=== PATIENT | female | born 1970 | race Caucasian/White ===

== ENCOUNTER 2018-07-24 09:39 | Day surgery (SDC) | payer BC ==
[~2018-07-24 09:39] MED LIST: ACAI; ERGO400 PO; FISH1000 PO; MULVITA PO; OXYACE5T PO; RXOXYACE PO; TOCO1000 PO; VITB100 PO; [UNRECOGNIZED DRUG - OTHER]
[2018-07-24 13:53] LABS: Performing Lab SYMBIODX; Test Name FLOW CYTOMETRY
[2018-08-02 14:27] LABS: Result SEE PATHOTH RESULTS
== END 2018-07-24 22:42 | disposition home or self-care (01) ==
LOC: CT 09:39 → US 09:39 → CT 10:00 → US 22:42
PROVIDERS: Pathology Dermatopathology
DX: R59.0 Localized enlarged lymph nodes (principal); D48.1 Neoplasm of uncertain behavior of connective and other soft tissue; M54.2 Cervicalgia
CPT/HCPCS: 38505; 76942; 87071; 87075; 87076; 87205; 88173; 88184; 88185; 88305; 88312

== ENCOUNTER → 2018-07-26 | Outpatient (CLI) | payer BC | LOC: LAB 17:56 → LAB SHORT 17:56 | DX: L08.9 Local infection of the skin and subcutaneous tissue, unspecified (principal); R59.0 Localized enlarged lymph nodes | CPT/HCPCS: 87070; 87205 ==

== ENCOUNTER 2020-12-16 16:34 | Emergency (ER) | payer BC ==
[~2020-12-16] VITALS: Ht 162.6 cm; Wt 72.6 kg
[2020-12-16 17:17] LABS: BASOPHILS ABSOLUTE AUTO 0.03 K/mm3 (0.00-0.23); BASOPHILS PERCENT AUTO 0 % (0-2); EOSINOPHILS ABSOLUTE AUTO 0.16 K/mm3 (0.00-0.68); EOSINOPHILS PERCENT AUTO 2 % (0-6); Hematocrit 43.2 % (33.0-51.0); Hemoglobin 14.4 g/dL (11.5-16.0); IMMATURE GRAN ABSOLUTE AUTO 0.05 K/mm3 (0.00-0.10); IMMATURE GRAN PERCENT AUTO 1 % (0-1); LYMPHOCYTES ABSOLUTE AUTO 1.74 K/mm3 (0.84-5.20); LYMPHOCYTES PERCENT AUTO 24 % (21-46); MONOCYTES PERCENT AUTO 11 % (4-13); Mean Corpuscular HGB 31.4 pg (26.0-34.0); Mean Corpuscular HGB Conc 33.3 g/dL (31.5-36.5); Mean Corpuscular Volume 94 fL (80-100); Mean Platelet Volume 10.4 fL (9.1-12.4); NEUTROPHILS PERCENT AUTO 61 % (41-73); Platelet Count 228 K/mm3 (150-400); RDW Coefficient Variation 12.7 % (11.7-14.2); RDW Standard Deviation 43.8 fL (35.1-46.3); Red Blood Cell Count 4.58 M/mm3 (3.80-5.20); White Blood Cell Count 7.18 K/mm3 (4.00-11.30)
[2020-12-16 17:37] LABS: Alanine Aminotransfer (ALT/SGP 33 U/L (12-78); Albumin, Blood 3.6 g/dL (3.4-5.0); Albumin/Globulin Ratio 0.7 (0.8-1.8); Alk Phos 113 U/L (50-136); Anion Gap 4 mmol/L (6-16); Aspartate Aminotrans (AST/SGOT 28 U/L (12-37); Bilirubin, Total 0.3 mg/dL (0.1-1.0); Blood Urea Nitrogen 12 mg/dL (8-24); Bun/Creatinine Ratio 16.8 (12.0-20.0); CO2, Blood 27 mmol/L (21-32); Calcium, Blood 9.2 mg/dL (8.5-10.1); Chloride, Blood 105 mmol/L (98-108); Creatinine, Blood 0.71 mg/dL (0.40-1.00); Globulin, Blood 5.1 g/dL (2.2-4.0); Glomerular Filtration Rate >60 (60-); Glucose, Blood 92 mg/dL (70-99); Sodium, Blood 136 mmol/L (136-145); Total Protein, Blood 8.7 g/dL (6.4-8.2); Troponin I <0.015 ng/mL (0.000-0.040)
== END 2020-12-16 19:09 | disposition home or self-care (01) ==
LOC: ER 16:34
PROVIDERS: Physician Assistant
DX: R07.89 Other chest pain (principal)
CPT/HCPCS: 36415; 71046; 80053; 84484; 85025; 93005; 93010; 99283-25

== ENCOUNTER 2021-01-15 15:25 | Inpatient (IN) | payer BC ==
[~2021-01-15] VITALS: Ht 162.6 cm; Wt 76.7 kg
[2021-01-15 16:26] LABS: Hematocrit 40.9 % (33.0-51.0); Mean Corpuscular HGB 31.6 pg (26.0-34.0); Mean Corpuscular HGB Conc 34.2 g/dL (31.5-36.5); Mean Corpuscular Volume 92 fL (80-100); RDW Coefficient Variation 13.1 % (11.7-14.2); RDW Standard Deviation 44.5 fL (35.1-46.3); Red Blood Cell Count 4.43 M/mm3 (3.80-5.20); White Blood Cell Count 23.91 K/mm3 (4.00-11.30)
[2021-01-15] MEDS ORDERED: ACET500 PO (16:33)
[2021-01-15] MEDS ORDERED: OMEP20ER PO (16:33)
[2021-01-15] MEDS ORDERED: IBUP800 PO (16:34)
[2021-01-15 16:39] LABS: Alanine Aminotransfer (ALT/SGP 32 U/L (12-78); Albumin, Blood 1.9 g/dL (3.4-5.0); Albumin/Globulin Ratio 0.4 (0.8-1.8); Alk Phos 194 U/L (50-136); Anion Gap 6 mmol/L (6-16); Aspartate Aminotrans (AST/SGOT 61 U/L (12-37); Bilirubin, Total 0.9 mg/dL (0.1-1.0); Blood Urea Nitrogen 11 mg/dL (8-24); Bun/Creatinine Ratio 14.8 (12.0-20.0); CO2, Blood 28 mmol/L (21-32); Calcium, Blood 8.6 mg/dL (8.5-10.1); Chloride, Blood 101 mmol/L (98-108); Creatinine, Blood 0.74 mg/dL (0.40-1.00); Glomerular Filtration Rate >60 (60-); Glucose, Blood 96 mg/dL (70-99); Potassium, Blood 4.1 mmol/L (3.5-5.5); Sodium, Blood 135 mmol/L (136-145); Total Protein, Blood 6.9 g/dL (6.4-8.2)
[2021-01-15 16:43] LABS: Mean Platelet Volume 11.1 fL (9.1-12.4); Platelet Count 300 K/mm3 (150-400)
[2021-01-15 16:47] LABS: BAND PERCENT MAN 53 % (0-8); BASOPHILS PERCENT MAN 0 % (0-2); EOSINOPHILS PERCENT MAN 0 % (0-6); METAMYELOCYTE ABSOLUTE MAN 0.95 K/mm3 (0.00-0.00); METAMYELOCYTE PERCENT MAN 4 % (0-0); MONOCYTES ABSOLUTE MAN 0.23 K/mm3 (0.16-1.47); MONOCYTES PERCENT MAN 1 % (4-13); NEUTROPHILS ABSOLUTE MAN 22.71 K/mm3 (1.96-9.15); SEG NEUTROPHILS PERCENT MAN 42 % (41-73); TOTAL CELLS COUNTED 100
[2021-01-16 05:17] LABS: Hematocrit 38.9 % (33.0-51.0); Hemoglobin 13.2 g/dL (11.5-16.0); Mean Corpuscular HGB 31.5 pg (26.0-34.0); Mean Corpuscular HGB Conc 33.9 g/dL (31.5-36.5); Mean Corpuscular Volume 93 fL (80-100); Mean Platelet Volume 10.6 fL (9.1-12.4); Platelet Count 235 K/mm3 (150-400); RDW Coefficient Variation 13.1 % (11.7-14.2); RDW Standard Deviation 44.8 fL (35.1-46.3); Red Blood Cell Count 4.19 M/mm3 (3.80-5.20); White Blood Cell Count 23.34 K/mm3 (4.00-11.30)
[2021-01-16 05:35] LABS: BAND PERCENT MAN 27 % (0-8); BASOPHILS PERCENT MAN 0 % (0-2); EOSINOPHILS PERCENT MAN 0 % (0-6); LYMPHOCYTES PERCENT MAN 3 % (21-46); MONOCYTES ABSOLUTE MAN 0.46 K/mm3 (0.16-1.47); MONOCYTES PERCENT MAN 2 % (4-13); NEUTROPHILS ABSOLUTE MAN 22.17 K/mm3 (1.96-9.15); SEG NEUTROPHILS PERCENT MAN 68 % (41-73); TOTAL CELLS COUNTED 100
[2021-01-16 05:38] LABS: Anion Gap 6 mmol/L (6-16); Blood Urea Nitrogen 11 mg/dL (8-24); Bun/Creatinine Ratio 16.2 (12.0-20.0); CO2, Blood 27 mmol/L (21-32); Calcium, Blood 8.6 mg/dL (8.5-10.1); Chloride, Blood 108 mmol/L (98-108); Creatinine, Blood 0.68 mg/dL (0.40-1.00); Glomerular Filtration Rate >60 (60-); Glucose, Blood 119 mg/dL (70-99); Potassium, Blood 3.3 mmol/L (3.5-5.5); Sodium, Blood 141 mmol/L (136-145)
--- NOTE | 2021-01-16 06:38 | NUR ---
SHIFT SUMMARY- PT. NEW ADMIT FOR ED. A&O, INDEP IN ROOM. ON 3L NC SATS AT 92%. PT. HAVING SOB W/EXERTION WITH OCCASIONAL COUGH. ALSO C/O IRENE THIS AM, MEDICATED PER EMAR. RESTED QUIETLY T/O THE NIGHT, NO APPARENT DISTRESS NOTED. CALL LIGHT WITHIN REACH AND SIDE RAILS UPX2. WILL CONT TO MONITOR.
--- NOTE | 2021-01-16 10:47 | NUR ---
Ibuprofen 400mg Patient c/o persistent IRENE rating 05/28. Received V.O. from Dr. Fernandez to give additional 400mg Ibuprofen PO now. EMAR updated.
[2021-01-16 17:28] LABS: Adenovirus Not Detected (NOT DETECT); Bordetella pertussis Not Detected (NOT DETECT); Chlamydophila pneumoniae Not Detected (NOT DETECT); Coronavirus 229E Not Detected (NOT DETECT); Coronavirus HKU1 Not Detected (NOT DETECT); Coronavirus NL63 Not Detected (NOT DETECT); Coronavirus OC43 Not Detected (NOT DETECT); Human Metapneumovirus Not Detected (NOT DETECT); Human Rhinovirus/Enterovirus Not Detected (NOT DETECT); Influenza A/2009-H1 Not Detected (NOT DETECT); Influenza A/H1 Not Detected (NOT DETECT); Influenza A/H3 Not Detected (NOT DETECT); Influenza B Not Detected (NOT DETECT); Mycoplasma pneumoniae Not Detected (NOT DETECT); Parainfluenza Virus 1 Not Detected (NOT DETECT); Parainfluenza Virus 2 Not Detected (NOT DETECT); Parainfluenza Virus 3 Not Detected (NOT DETECT); Parainfluenza Virus 4 Not Detected (NOT DETECT); Respiratory Syncytial Virus Not Detected (NOT DETECT); SARS-Cov-2 (COVID-19), BioFire Not Detected (NOT DETECT)
--- NOTE | 2021-01-16 18:46 | NUR ---
SHIFT SUMMARY NOTE: PT A/O X 3. IND IN ROOM. PT O2 SATS DECREASED TO 89% ON 3LPM. INCREASED O2 TO 4 LPM AND CONTINUED TO STAY BELOW 89%. INCREASED TO 5 LPM AND O2 SATS WERE 94%. PT REPORTED MIGRAINE IRENE TODAY WITH VISUAL EFFECTS. CONTROLLED WITH TYLENOL AND ADVIL 800 MG. NO OTHER ACUTE CONCERNS THIS SHIFT.
[2021-01-17 05:06] LABS: Hematocrit 38.7 % (33.0-51.0); Hemoglobin 13.3 g/dL (11.5-16.0); Mean Corpuscular HGB 31.9 pg (26.0-34.0); Mean Corpuscular HGB Conc 34.4 g/dL (31.5-36.5); Mean Corpuscular Volume 93 fL (80-100); Mean Platelet Volume 10.3 fL (9.1-12.4); Platelet Count 228 K/mm3 (150-400); RDW Coefficient Variation 13.2 % (11.7-14.2); Red Blood Cell Count 4.17 M/mm3 (3.80-5.20); White Blood Cell Count 32.16 K/mm3 (4.00-11.30)
[2021-01-17 05:34] LABS: BAND PERCENT MAN 9 % (0-8); BASOPHILS PERCENT MAN 0 % (0-2); EOSINOPHILS PERCENT MAN 0 % (0-6); LYMPHOCYTES ABSOLUTE MAN 0.64 K/mm3 (0.84-5.20); LYMPHOCYTES PERCENT MAN 2 % (21-46); MONOCYTES ABSOLUTE MAN 0.64 K/mm3 (0.16-1.47); MONOCYTES PERCENT MAN 2 % (4-13); NEUTROPHILS ABSOLUTE MAN 30.87 K/mm3 (1.96-9.15); SEG NEUTROPHILS PERCENT MAN 87 % (41-73); TOTAL CELLS COUNTED 100
[2021-01-17 05:41] LABS: Anion Gap 6 mmol/L (6-16); Blood Urea Nitrogen 12 mg/dL (8-24); Bun/Creatinine Ratio 18.6 (12.0-20.0); CO2, Blood 28 mmol/L (21-32); Calcium, Blood 9.1 mg/dL (8.5-10.1); Chloride, Blood 108 mmol/L (98-108); Creatinine, Blood 0.65 mg/dL (0.40-1.00); Glomerular Filtration Rate >60 (60-); Glucose, Blood 99 mg/dL (70-99); Potassium, Blood 3.2 mmol/L (3.5-5.5); Sodium, Blood 142 mmol/L (136-145)
--- NOTE | 2021-01-17 06:04 | NUR ---
SHIFT SUMMARY- PT. C/O HEADACHE DURING THE NIGHT. MEDICATED 2X, WITH SOME IMPROVEMENT. ON 5L NC, SATS AT 90-92%. OCCASIONAL DRY NONPRODUCTIVE COUGH. RESTED ON/OFF DURING THE NIGHT, NO APPARENT DISTRESS NOTED. CALL LIGHT WITHIN REACH AND SIDE RAILS UPX2. WILL CONT TO MONITOR.
--- NOTE | 2021-01-17 08:49 | NUR ---
BD protocol and guifenesen Patient tachypneic. Currently on 5L O2 via NC. Patient reports she is a "mouth breather" but refuses to place NC prongs via mouth. Oxygen sats 86-89%. O2 increased to 6L, communicated with Itzel REZA requesting for high flow nasal cannula. Patient also having audible wheezes. Discussed with Dr. Fernandez, T.O. received for BD protocol and Guifenesen 600mg BID. EMAR updated.
--- NOTE | 2021-01-17 10:12 | NUR ---
Transfer Summary Patient transferring to room ICU 01, report given to receiving RN Tamiko. Alejandro/[id number], independent. Escorted via w/c by this RN. Personal belongings sent with patient. Breathing unlabored after neb tx and 13L HF NC placed, respiratory distress improved. Family notified by Salena IBRAHIM RE transfer to ICU.
--- NOTE | 2021-01-17 10:43 | NUR ---
RN NOTE: THIS AM PT BECAME DYSPNEIC AND HYPERVENTILATING ON 5 LPM WITH O2 SATS AT 79%. WAS ABLE TO DEEP BREATH THROUGH NOSE AND O2 SATS WOULD RISE TO LOW 90'S BUT PT UNABLE TO MAINTAIN O2 SATS. SHE HAD HARSH NON PRODUCTIVE COUGH. PT ALSO DEVELOPED A 103.7 FEVER. PT REPORTED A MIGRAINE IRENE AND FELT IF HER IRENE WAS IMPROVED SHE WOULD BE ABLE TO BREATH BETTER. AM MEDICATIONS GIVEN PER AUG. ADVIL 800 MG GIVEN FOR IRENE AND TYLENOL GIVEN FOR FEVER AND CHILLS. MD ORDERED BD PROTOCOL AND GUAFENISEN AND CAME TO EVALUATE PT. RT PROVIDED TREATMENT AND PLACED PT ON OXIMIZER AND 13 LPM TO BRING O2 SATS UP TO 91%. ORDERED TX TO PCU STATUS. NO BEDS AVALIABLE SO PT WENT TO ICU1. FAMILY NOTIFIED OF TX.
--- NOTE | 2021-01-17 12:44 | NUR ---
TRANSFER DOWN TO ICU AT 1050. PCU STATUS. PT CAME VIA WHEELCHAIR. ABLE TO STAND AND TRANSFER TO BED. ALERT AND ORIENTED X4. NEURO WNL. CAME DOWN ON HIGH FLOW AT 13L, TRANSITIONED TO OXYMIZER AT 13L SATING AT 91-92%. TELE SHOWING SINUS TACH WITH HR 100-110'S. DENIES CHEST PAIN/PRESSURE. BOWEL TONES PRESENT. COMPLAINS OF HEADACHE, MEDICATED THIS AM. WILL CONTINUE TO MONITOR. COLD WASH CLOTH PROVIDED. UP TO BATHROOM WITH SBA. DESATS TO 87% BUT ABLE TO RECOVER IN 3 MIN. ZOSYN INFUSING AT THIS TIME. CALL LIGHT IN REACH. VITAL SIGNS STABLE. BREATHING TREATMENTS PER RT. WILL CONTINUE TO MONITOR.
[2021-01-17 12:56] LABS: PCO2 Arterial 35.2 mmHg (35-45); PO2 Arterial 69.3 mmHg (80-100); pH Blood Arterial 7.44 (7.35-7.45)
--- NOTE | 2021-01-17 18:02 | NUR ---
SHIFT SUMMARY: NO ACUTE CHANGES. VITALS REMAIN STABLE. REMAINS ON 13L OXYMIZER SATING LOW 90'S. DR. CARREON IN TO SEE PATIENT. IN ROOM AT TIME. CONTINUE WITH CURRENT TREATMENT PLAN. NO NEW ORDERS. LABS PENDING. MIGRAINE RESOLVED. CALL LIGHT IN REACH. WILL CONTINUE TO MONITOR.
[2021-01-18 03:29] LABS: Hematocrit 35.4 % (33.0-51.0); Hemoglobin 11.9 g/dL (11.5-16.0); Mean Corpuscular HGB Conc 33.6 g/dL (31.5-36.5); Mean Corpuscular Volume 92 fL (80-100); Mean Platelet Volume 10.7 fL (9.1-12.4); Platelet Count 195 K/mm3 (150-400); RDW Coefficient Variation 13.6 % (11.7-14.2); RDW Standard Deviation 46.5 fL (35.1-46.3); Red Blood Cell Count 3.84 M/mm3 (3.80-5.20)
[2021-01-18 03:33] LABS: Base Excess Venous 5.4 mmol/L; Bicarbonate Venous 28.7 mmol/L (24.0-30.0); PCO2 Venous 43.4 mmHg (38-42); PO2 Venous 138 mmHg (38-42); pH Blood Venous 7.44 (7.34-7.37)
[2021-01-18 03:46] LABS: Anion Gap 5 mmol/L (6-16); Blood Urea Nitrogen 12 mg/dL (8-24); Bun/Creatinine Ratio 20.7 (12.0-20.0); CO2, Blood 29 mmol/L (21-32); Calcium, Blood 8.9 mg/dL (8.5-10.1); Chloride, Blood 108 mmol/L (98-108); Creatinine, Blood 0.58 mg/dL (0.40-1.00); Glomerular Filtration Rate >60 (60-); Glucose, Blood 114 mg/dL (70-99); Magnesium, Blood 2.4 mg/dL (1.6-2.4); Phosphorus, Blood 3.3 mg/dL (2.5-4.9); Potassium, Blood 3.1 mmol/L (3.5-5.5); Sodium, Blood 142 mmol/L (136-145)
[2021-01-18 03:52] LABS: BAND PERCENT MAN 9 % (0-8); BASOPHILS PERCENT MAN 0 % (0-2); EOSINOPHILS PERCENT MAN 0 % (0-6); LYMPHOCYTES PERCENT MAN 3 % (21-46); MONOCYTES ABSOLUTE MAN 1.17 K/mm3 (0.16-1.47); MONOCYTES PERCENT MAN 5 % (4-13); NEUTROPHILS ABSOLUTE MAN 21.52 K/mm3 (1.96-9.15); SEG NEUTROPHILS PERCENT MAN 83 % (41-73); TOTAL CELLS COUNTED 100
--- NOTE | 2021-01-18 05:46 | NUR ---
shift summary pt rested some through night. alert and oriented, able to make needs known. cooperative with plan of care. sats >90% on 13-15l oxymizer. tele nsr. voiding indpeendently to bathroom, does tend to desat with ambulation. has frequent coughing fits. i.s. at bedside. c/o severe headache, see emar. no other pain though. vss. call light within reach, bed in lowest position. will continue to [facility].
[2021-01-18 11:35] LABS: Source, Urine Clean Catch
[2021-01-18 11:41] LABS: Appearance, Urine Clear (Clear); Bilirubin, Urine Neg (Neg); Blood, Urine Neg (Neg); Color, Urine Yellow (P-Yellow); Glucose Qualitative, Urine Neg (Neg); Ketones, Urine Neg (Neg); Leukocyte Esterase, Urine Neg (Neg); Nitrite, Urine Neg (Neg); Protein, Urine Neg (Neg); Urobilinogen, Urine NORM (Normal)
--- NOTE | 2021-01-18 14:30 | NUR ---
Report given to PCU 13 Nurse Pt to PCU 13 via bed. Pt reamins on 13 L via Oxymizer. A/O X 4, able to ambulate self in room without assitance. VSS. NSR. Report given to PCU nurse. All questions answered.
--- NOTE | 2021-01-18 16:00 | NUR ---
REPORT RECEIVED FROM YSABEL RN, PT TRANSFERRED FROM ICU 1 TO PCU 13
[2021-01-19 04:19] LABS: BASOPHILS ABSOLUTE AUTO 0.07 K/mm3 (0.00-0.23); BASOPHILS PERCENT AUTO 0 % (0-2); EOSINOPHILS PERCENT AUTO 0 % (0-6); Hematocrit 34.6 % (33.0-51.0); Hemoglobin 11.8 g/dL (11.5-16.0); IMMATURE GRAN ABSOLUTE AUTO 0.56 K/mm3 (0.00-0.10); IMMATURE GRAN PERCENT AUTO 3 % (0-1); LYMPHOCYTES ABSOLUTE AUTO 1.02 K/mm3 (0.84-5.20); LYMPHOCYTES PERCENT AUTO 5 % (21-46); MONOCYTES ABSOLUTE AUTO 0.85 K/mm3 (0.16-1.47); MONOCYTES PERCENT AUTO 4 % (4-13); Mean Corpuscular HGB 31.6 pg (26.0-34.0); Mean Corpuscular HGB Conc 34.1 g/dL (31.5-36.5); Mean Corpuscular Volume 93 fL (80-100); Mean Platelet Volume 10.8 fL (9.1-12.4); NEUTROPHILS ABSOLUTE AUTO 18.23 K/mm3 (1.96-9.15); NEUTROPHILS PERCENT AUTO 88 % (41-73); Platelet Count 211 K/mm3 (150-400); RDW Coefficient Variation 13.8 % (11.7-14.2); RDW Standard Deviation 47.2 fL (35.1-46.3); Red Blood Cell Count 3.74 M/mm3 (3.80-5.20); White Blood Cell Count 20.73 K/mm3 (4.00-11.30)
[2021-01-19 04:38] LABS: Anion Gap 5 mmol/L (6-16); Blood Urea Nitrogen 14 mg/dL (8-24); Bun/Creatinine Ratio 22.7 (12.0-20.0); CO2, Blood 29 mmol/L (21-32); Calcium, Blood 8.9 mg/dL (8.5-10.1); Chloride, Blood 107 mmol/L (98-108); Creatinine, Blood 0.62 mg/dL (0.40-1.00); Glomerular Filtration Rate >60 (60-); Glucose, Blood 133 mg/dL (70-99); Potassium, Blood 3.5 mmol/L (3.5-5.5); Sodium, Blood 141 mmol/L (136-145)
--- NOTE | 2021-01-19 05:53 | NUR ---
shift summary pt rested well through the night. alert and oriented, able to make needs known. cooperative with plan of care. sats >90%, started the night at 13L oxymizer, but was able to wean down to 10L on the oxymizer. tele nsr. voiding independently to bathroom. 1 bm. pain x1 for migraine. cough medicine prn x1. call light within reach, bed in lowest position. iwll continue to monitor.
[2021-01-19 06:09] LABS: HIV SCREEN 4TH GENERATION WRFX Non Reactive (Non Reactive)
[2021-01-19 13:09] LABS: ANA DIRECT Negative (Negative); ANTI-DNA (DS) AB QN 5 IU/mL (0-9); RNP ANTIBODIES 0.3 AI (0.0-0.9); SJOGREN'S ANTI-SS-A <0.2 AI (0.0-0.9); SJOGREN'S ANTI-SS-B <0.2 AI (0.0-0.9); SMITH ANTIBODIES <0.2 AI (0.0-0.9)
[2021-01-19 14:09] LABS: ANTISCLERODERMA-70 ANTIBODIES <0.2 AI (0.0-0.9); SJOGREN'S ANTI-SS-A <0.2 AI (0.0-0.9); SJOGREN'S ANTI-SS-B <0.2 AI (0.0-0.9)
--- NOTE | 2021-01-19 19:20 | NUR ---
LOPERAMIDE ORDERED BY DR. QUINTANA AT PT'S REQUEST AND ADMINISTERED 2X PER AUG, GUAIFENESIN SYRUP, ACETAMINOPHEN, AND IBUPROFEN ALSO ADMINISTERED 2X PER AUG, FIORICET ADMINISTERED PER AUG FOR PT'S REPORTS OF MIGRAINE, PT REQUESTED THAT [facility] BE SENT WITH EACH MEAL (ORDER ENTERED), DR. QUINTANA WAS CALLED ABOUT PT'S REPORT OF SORE THROAT AT 1423, CEPACOL ORDER PROVIDED, DR. QUINTANA WAS CALLED ABOUT PT'S REPORT OF COLD SORE AT 1820, ORDER FOR ACYCLOVIR PROVIDED, ODALIS GRIFFITH INDEPENDENTLY, PT'S AT BEDSIDE DURING VISITING HOURS, PT DENIES ADDITIONAL CONCERNS AT THIS TIME
[2021-01-20 04:49] LABS: Anion Gap 5 mmol/L (6-16); Blood Urea Nitrogen 10 mg/dL (8-24); Bun/Creatinine Ratio 17.3 (12.0-20.0); CO2, Blood 31 mmol/L (21-32); Calcium, Blood 8.6 mg/dL (8.5-10.1); Chloride, Blood 105 mmol/L (98-108); Creatinine, Blood 0.58 mg/dL (0.40-1.00); Glomerular Filtration Rate >60 (60-); Glucose, Blood 114 mg/dL (70-99); Potassium, Blood 3.6 mmol/L (3.5-5.5); Sodium, Blood 141 mmol/L (136-145)
--- NOTE | 2021-01-20 06:32 | NUR ---
shift summary pt rested most of night. alert and oriented, able to make needs known. [facility] care. sats >90% on 7LNC. coughing often, sputum collected - came back negative. see emar for cough meds. tele nsr. independent in the room. voiding, bm. pain in abd from coughing so often, see emar. vss. call light within reach, bed in lowest position. will continue to monitor.
--- NOTE | 2021-01-20 18:21 | NUR ---
SHIFT SUMMARY: PT CONTINUES A&OX4, RESP EVEN AND UNLABORED AT REST, DYSPNEA W/EXERTION OR COUGHING, MAINTAINING O2 SATS >90% ON O2 AT 4L/MIN, SR ON MONITOR. PT CONTINUES INDEPENDENT IN ROOM, USES CALL LIGHT APPROPRIATELY TO MAKE NEEDS KNOWN. PT MEDICATED W/PRN MEDS FOR LOOSE STOOL, COUGH, AND HEADACHE. AT THIS TIME, PT RESTING QUIETLY IN HER ROOM. WILL CONTINUE TO MONITOR AND TREAT ACCORDINGLY UNTIL CHANGE OF SHIFT.
[2021-01-21 04:15] LABS: Hematocrit 35.3 % (33.0-51.0); Hemoglobin 11.8 g/dL (11.5-16.0); Mean Corpuscular HGB Conc 33.4 g/dL (31.5-36.5); Mean Corpuscular Volume 93 fL (80-100); Mean Platelet Volume 10.9 fL (9.1-12.4); Platelet Count 215 K/mm3 (150-400); RDW Coefficient Variation 13.6 % (11.7-14.2); RDW Standard Deviation 46.9 fL (35.1-46.3); Red Blood Cell Count 3.81 M/mm3 (3.80-5.20); White Blood Cell Count 14.65 K/mm3 (4.00-11.30)
[2021-01-21 04:40] LABS: Anion Gap 5 mmol/L (6-16); Blood Urea Nitrogen 9 mg/dL (8-24); Bun/Creatinine Ratio 15.2 (12.0-20.0); CO2, Blood 32 mmol/L (21-32); Calcium, Blood 8.8 mg/dL (8.5-10.1); Chloride, Blood 103 mmol/L (98-108); Creatinine, Blood 0.59 mg/dL (0.40-1.00); Glomerular Filtration Rate >60 (60-); Glucose, Blood 132 mg/dL (70-99); Potassium, Blood 3.3 mmol/L (3.5-5.5); Sodium, Blood 140 mmol/L (136-145)
--- NOTE | 2021-01-21 06:21 | NUR ---
ASSUMED CARE OF PATIENT AT APPROXIMATELY 1905 FROM SYDNEE Bates RN. PATIENT ALERT AND ORIENTED X4; INDEPENDENT IN ROOM. PATIENT REPORTS PAIN IN HEAD, CHRONIC FROM MIGRAINES AND IN ABDOMEN FROM COUGHING; MEDICATED FOR COUGH AND PAIN. PATIENT DENIES NUMBNESS, TINGLING, DIZZINESS OR NAUSEA. PIV S/L. NSR ON TELE; OXYGEN SATURATION ABOVE 90% ON 4LPM VIA NC. PATIENT SLEPT ABOUT THREE HOURS.
[2021-01-21 10:11] LABS: ANA DIRECT Negative (Negative); ANTIMYELOPEROXIDASE (MPO) ABS <9.0 U/mL (0.0-9.0); ANTIPROTEINASE 3 (PR-3) ABS 4.5 U/mL (0.0-3.5); ATYPICAL PANCA <1:20 titer (Neg:<1:20); CYTOPLASMIC (C-ANCA) <1:20 titer (Neg:<1:20); PERINUCLEAR (P-ANCA) <1:20 titer (Neg:<1:20)
--- NOTE | 2021-01-21 19:55 | NUR ---
PT GIVEN ANALGESICS SEVERAL TIMES PER AUG, PT GIVEN MASSAGING PILLOW SUPPORTS BY ANATOLY CHOUDHURY RN AND REPORTED SIGNIFICANT RELIEF FROM SUCH, VSS, PT O2 TITRATED DOWN TO 1LNC, PT RECEIVED POTASSIUM SUPPLEMENT AND CAFFEINATED DRINKS, PT RECEIVED LOPERAMIDE PER AUG, PT NOW MED NO TELE, PT DENIES ADDITIONAL CONCERNS AT THIS TIME
--- NOTE | 2021-01-22 05:41 | NUR ---
ASSUMED CARE OF PATIENT AT APPROXIMATELY 1910 FROM LELO Jiang RN. PATIENT ALERT AND ORIENTED X4; INDEPENDENT IN ROOM. PATIENT REPORTS PAIN IN HEAD, CHRONIC FROM MIGRAINES AND IN ABDOMEN FROM COUGHING; MEDICATED FOR COUGH AND PAIN. PATIENT REQUESTED "A MUSCLE RELAXER OR VICODIN"; DR. TOWNSEND CALLED; ORDERS RECIEVED FOR ONE TIME DOSE MUSCLE RELAXER. PATIENT DENIES NUMBNESS, TINGLING, DIZZINESS OR NAUSEA. PIV S/L. MEDICAL NO TELE STATUS; OXYGEN SATURATION ABOVE 90% ON 1LPM VIA NC. PATIENT SLEPT ABOUT THREE HOURS.
--- NOTE | 2021-01-22 06:27 | NUR ---
PATIENT SLEPT FOR ABOUT SIX HOURS LAST NIGHT. NO ACUTE CHANGES.
--- NOTE | 2021-01-22 06:49 | NUR ---
PATIENT CALLS STAFF TO ROOM TO REPORT PAIN IN HER BACK; THAT SHE HAS HAD BEFORE AND GOES TO URGENT CARE, WALKS IN AND STATES "I NEED A SHOT"; REPORTS SHE GETS TORADOL INJECTION, VICODIN AND MUSCLE RELAXER BUT UNABLE TO STATE DOSE.
--- NOTE | 2021-01-22 14:11 | NUR ---
PT TO ROOM 326. REPORT GIVEN TO JANIE HORNE RN.
--- NOTE | 2021-01-22 16:52 | NUR ---
SHIFT SUMMARY PT TRANSFERRED FROM PCU TO MED FLOOR @ APPROX 1400 VIA WHEELCHAIR. PT ABLE TO AMBULATE TO BED AND IS INDEPENDENT IN ROOM. REMAINS ON 1 L/MIN NC SATING AT 91%, GOAL IS TO TITRATE PT OFF O2. VSS, COOPERATIVE c CARE. REPORTS PAIN IN HER BACK, TREATED PER EMAR AND PROVIDED c KPAD. PT IS CURRENTLY RESTING IN BED VISITING c . CALL LIGHT IS WITHIN REACH, CALLS APPROPRIATELY.
--- NOTE | 2021-01-23 04:30 | NUR ---
SHIFT SUMMARY ADMITTED FOR FEVER/SOB. FULL CODE. SHE HAS PNEUMONIA/SEPSIS. IV ANTIBIOTICS DC'D. SHE DESATURATED THIS SHIFT TO THE MID TO HIGH 80%'S. I DID TITRATE HER O2 UP TEMPORARILY, IT IS NOW ON 3 LPM. SHE HAD A SPELL OF COUGHING PREVIOUS TO THAT, PRN COUGH MEDS GIVEN. RESPIRATORY TX'S ARE SCHEDULED. SHE HAS A HX OF MUSCLE SPASMS AND CHRONIC DIARRHEA. SHE IS REFUSING ALL BOWEL CARE. IV STEROIDS ARE SCHEDULED. SHE IS DESPERATE TO DC HOME. CONTINUOUS PULSE OX IS IN PLACE.
[2021-01-23 06:17] LABS: Anion Gap 4 mmol/L (6-16); Blood Urea Nitrogen 12 mg/dL (8-24); Bun/Creatinine Ratio 20.8 (12.0-20.0); CO2, Blood 31 mmol/L (21-32); Calcium, Blood 8.7 mg/dL (8.5-10.1); Chloride, Blood 103 mmol/L (98-108); Creatinine, Blood 0.58 mg/dL (0.40-1.00); Glomerular Filtration Rate >60 (60-); Glucose, Blood 120 mg/dL (70-99); Potassium, Blood 4.1 mmol/L (3.5-5.5); Sodium, Blood 138 mmol/L (136-145)
--- NOTE | 2021-01-23 18:06 | NUR ---
SHIFT SUMMARY NO ACUTE CHANGES NOTED TO PATIENT THIS SHIFT. PT AAOX4, ABLE TO MAKE NEEDS KNOWN, PLEASANT AND COOPERATIVE TO CARE. PT MEDICATED FOR PAIN AND MUSCLE SPASMS PER EMAR. NO C/O CP OR N&V. PT ON 1LPM O2 VIA NC SATS 91-92%. PT C/O ANY BRUISED AREA TO HER ABD AREA RLQ SIDE, PT DENIES PAIN TO AA. NO WARMTH NOTED TO AA. PT CURRENTLY RECEIVING LOVENOX ORDERED FOR DVT PROPHYLAXIS. NOTIFIED DR. SLATER VIA PHONE CALL. T.O. NOTED. PT COMFORTABLE IN ROOM AT THIS TIME. INDEPENDENT IN ROOM, BED AT LOWEST POSITION. CALL LIGHT WITHIN REACH.
--- NOTE | 2021-01-24 07:22 | NUR ---
Sully almaguer: Patient is alert and oriented. Pt O2 needs increased sl, on 2liters to keep sats above 90%. Pt does walk to BR, but continues to get dyspnic. Patient has chronic back pain that spasms with her cough, which is not productive. Lung sounds were clear throughout. Pt was medicated with [place] 2 tabs x 3 last shift, also with robitussin cough med. Pt had toradol IV and flexeril x1, which she rested best with. Pt is taking adequate fluids. New IV to RT AC. Call light in reach, uses it appropriately.
--- NOTE | 2021-01-24 17:41 | NUR ---
SHIFT SUMMARY NO ACUTE CHANGES NOTED TO PT THIS SHIFT. PT AAOX4, ABLE TO MAKE NEEDS KNOWN PLEASANT AND COOPERATIVE TO CARE. PT MEDICATED FOR BACK PAIN AND SPASMS. NO C/O CP OR N&V. PT CONTINUES ON 2LPM O2 VIA NC. SATS >92%. SOB NOTED WITH EXERTION. BED AT LOWEST POSITION. CALL LIGHT WITHIN REACH.
[2021-01-25 05:19] LABS: Anion Gap 3 mmol/L (6-16); Blood Urea Nitrogen 14 mg/dL (8-24); Bun/Creatinine Ratio 22.6 (12.0-20.0); CO2, Blood 31 mmol/L (21-32); Calcium, Blood 8.7 mg/dL (8.5-10.1); Chloride, Blood 103 mmol/L (98-108); Creatinine, Blood 0.62 mg/dL (0.40-1.00); Glomerular Filtration Rate >60 (60-); Glucose, Blood 102 mg/dL (70-99); Potassium, Blood 3.7 mmol/L (3.5-5.5); Sodium, Blood 137 mmol/L (136-145)
--- NOTE | 2021-01-25 07:31 | NUR ---
Rn summary: Patient rested better and has had a good night. Pt had [place] 2 tabs x2, and toradol 15mg with flexeril x1. Pt lungs are clear, o2 sats are in the 90's but still drop a little with activity. Pt encouraged to do activities one at a time and rest between. Pt has been on 1.5 liters O2 tonight. Pt uses call light appropriately. Independant in room.
[2021-01-25] MEDS ORDERED: GUAI600T33 PO (14:53)
[2021-01-25] MEDS ORDERED: CYCL10 PO (14:53)
[2021-01-25] MEDS ORDERED: PRED20 PO (14:54)
[2021-01-25] MEDS ORDERED: BACTRIM 400-801 EACH PO (14:55)
[2021-01-25] MEDS ORDERED: HYDR1TAB94 PO (14:56)
--- NOTE | 2021-01-25 16:43 | NUR ---
PT DISCHARGE HOME WITH O2 REQUIREMENT. MARISEL EXPLAINED THE USE OF O2. IV DC'D. [employer]S [employer] OFFICER EXPLAINED MEDICATION LIST TO THIS PT AND NEW MEDS. SCRIPTS FOR NORCO AND FOR ONE WEEK OFF FROM JOB. MEDICATED FOR PAIN PER EMAR BEFORE GOING HOME. FAXED MEDS TO PHARMACY AND EDUCATED THE PT ABOUT THE FOLLOW UP APPOINTMENT AND TO ESTABLISH HER PCP THROUGH IR[facility] SHIRLEY.
[2021-01-29 17:08] LABS: ANTI-EJ AB (RDL) Negative (Negative); ANTI-JO-1 AB (RDL) 43 Units (<20); ANTI-KU AB (RDL) Negative (Negative); ANTI-MDA-5 AB (CADM-140)(RDL) <20 Units (<20); ANTI-MI-2 AB (RDL) Negative (Negative); ANTI-NXP-2 (P140) AB (RDL) <20 Units (<20); ANTI-OJ AB (RDL) Negative (Negative); ANTI-PL-12 AB (RDL) Negative (Negative); ANTI-PL-7 AB (RDL) Negative (Negative); ANTI-PM/SCL-100 AB (RDL) <20 Units (<20); ANTI-SRP AB (RDL) Negative (Negative); ANTI-TIF-1GAMMA AB (RDL) <20 Units (<20); ANTI-U1 RNP AB (RDL) <20 Units (<20); ANTI-U2 RNP AB (RDL) Negative (Negative); ANTI-U3 RNP (FIBRILLARIN)(RDL) Negative (Negative)
== END 2021-01-25 16:42 | disposition home or self-care (01) | DRG 871 ==
LOC: ER 15:25 → MEDS 21:04 → ICUE 01-17 10:44 → PCU 01-18 15:11 → MEDS 01-22 14:00
PROVIDERS: Family Medicine; Internal Medicine; Internal Medicine Critical Care Medicine; Internal Medicine Pulmonary Disease; Physician Assistant; ADMIT Hospitalist
DX: A41.9 Sepsis, unspecified organism (principal); J18.9 Pneumonia, unspecified organism; J96.01 Acute respiratory failure with hypoxia; E87.1 Hypo-osmolality and hyponatremia; R65.20 Severe sepsis without septic shock; E87.6 Hypokalemia; D72.825 Bandemia; Z20.822 Contact with and (suspected) exposure to COVID-19; G43.909 Migraine, unspecified, not intractable, without status migrainosus; Z90.49 Acquired absence of other specified parts of digestive tract; Z90.89 Acquired absence of other organs; Z90.710 Acquired absence of both cervix and uterus; Z88.5 Allergy status to narcotic agent; Z79.899 Other long term (current) drug therapy; F17.290 Nicotine dependence, other tobacco product, uncomplicated; Z90.722 Acquired absence of ovaries, bilateral
CPT/HCPCS: 0202U; 36415; 36600; 71045; 71260; 80048; 80053; 81003; 82803; 83516; 83520; 83605; 83735; 84100; 84145; 85025; 85027; 85651; 86225; 86235; 86256; 86635; 87040; 87070; 87205; 87305; 87385; 87389; 87449; 93005; 93010; 93306; 94640; 94667; 94668; 94760; 94762; 96361; 96365-59; 96375-59; 99285-25; A9270; J1650; J1885; J1940; J1956; J2543; J2920; J2930; J7030; J7050; J7512; Q9967

== ENCOUNTER 2021-02-03 17:55 | Inpatient (IN) | payer BC ==
[~2021-02-03] VITALS: Ht 162.6 cm; Wt 74.9 kg
[~2021-02-03 17:55] MED LIST changes: +ACET500 PO; +BACTRIM 400-801 EACH PO; +CYCL10 PO; +GUAI600T33 PO; +HYDR1TAB94 PO; +IBUP800 PO; +OMEP20ER PO; +PRED20 PO
[2021-02-03 18:23] LABS: BASOPHILS ABSOLUTE AUTO 0.02 K/mm3 (0.00-0.23); BASOPHILS PERCENT AUTO 0 % (0-2); EOSINOPHILS ABSOLUTE AUTO 0.02 K/mm3 (0.00-0.68); EOSINOPHILS PERCENT AUTO 0 % (0-6); Hematocrit 41.1 % (33.0-51.0); Hemoglobin 13.5 g/dL (11.5-16.0); IMMATURE GRAN ABSOLUTE AUTO 0.14 K/mm3 (0.00-0.10); IMMATURE GRAN PERCENT AUTO 2 % (0-1); LYMPHOCYTES ABSOLUTE AUTO 1.25 K/mm3 (0.84-5.20); LYMPHOCYTES PERCENT AUTO 17 % (21-46); MONOCYTES ABSOLUTE AUTO 0.19 K/mm3 (0.16-1.47); MONOCYTES PERCENT AUTO 3 % (4-13); Mean Corpuscular HGB 30.5 pg (26.0-34.0); Mean Corpuscular HGB Conc 32.8 g/dL (31.5-36.5); Mean Corpuscular Volume 93 fL (80-100); Mean Platelet Volume 9.8 fL (9.1-12.4); NEUTROPHILS ABSOLUTE AUTO 5.84 K/mm3 (1.96-9.15); NEUTROPHILS PERCENT AUTO 78 % (41-73); Platelet Count 194 K/mm3 (150-400); RDW Coefficient Variation 13.5 % (11.7-14.2); RDW Standard Deviation 46.1 fL (35.1-46.3); Red Blood Cell Count 4.42 M/mm3 (3.80-5.20); White Blood Cell Count 7.46 K/mm3 (4.00-11.30)
[2021-02-03 18:52] LABS: Alanine Aminotransfer (ALT/SGP 82 U/L (12-78); Albumin, Blood 2.6 g/dL (3.4-5.0); Albumin/Globulin Ratio 0.6 (0.8-1.8); Alk Phos 184 U/L (50-136); Anion Gap 8 mmol/L (6-16); Aspartate Aminotrans (AST/SGOT 54 U/L (12-37); Bilirubin, Total 0.4 mg/dL (0.1-1.0); Blood Urea Nitrogen 9 mg/dL (8-24); Bun/Creatinine Ratio 11.7 (12.0-20.0); CO2, Blood 28 mmol/L (21-32); Chloride, Blood 94 mmol/L (98-108); Creatinine, Blood 0.77 mg/dL (0.40-1.00); Globulin, Blood 4.5 g/dL (2.2-4.0); Glomerular Filtration Rate >60 (60-); Glucose, Blood 111 mg/dL (70-99); Potassium, Blood 4.4 mmol/L (3.5-5.5); Sodium, Blood 130 mmol/L (136-145); Total Protein, Blood 7.1 g/dL (6.4-8.2)
[2021-02-03 19:59] LABS: SARS-Cov-2 (COVID-19) PCR, MMC Positive (NEGATIVE)
[2021-02-03 20:02] LABS: Base Excess Venous 4.6 mmol/L; Bicarbonate Venous 28.3 mmol/L (24.0-30.0); PCO2 Venous 39.8 mmHg (38-42); PO2 Venous 108 mmHg (38-42); pH Blood Venous 7.46 (7.34-7.37)
[2021-02-03] MEDS ORDERED: GUAI600T33 PO (22:59)
[2021-02-03] MEDS ORDERED: VITAMIN D31000 UNI1 PO (23:00)
--- NOTE | 2021-02-03 23:00 | NUR ---
PT ARRIVES TO ROOM ICU 01 FROM ED AT 2215. PT SLIDE TRANSFERRED TO BED. PT EASILY COUGHS WITH ANY EXERTION. ARRIVES WITH BIPAP IN PLACE. RESPIRATORY THERAPY CHANGES PT TO HIGH FLOW WITH 40 L/M FLOW AND FIO2 50 PERCENT. PT ABLE TO MAINTAIN O2 SATURATIONS > 90 PERCENT LONG SHE DOES NOT SPEAK OR HAVE EXERTIONAL EFFORTS. PT HAS PERSISTANT COUGH WITH SMALL AMOUNT OF THICK SPUTUM. THIS COLLECTED AND SENT TO LAB FOR PROCESSING.
[2021-02-03] MEDS ORDERED: PROBIOTIC1 EA13 PO (23:01)
[2021-02-03] MEDS ORDERED: C COMPLEX1000 M1 PO (23:01)
[2021-02-03] MEDS ORDERED: Hair, Skin & N1 EACH PO (23:02)
[2021-02-03] MEDS ORDERED: CALCIUM 1,0001 EACH PO (23:03)
--- NOTE | 2021-02-04 01:00 | NUR ---
DR CALLES HAS BEEN IN EARLIER TO SEE PT AND ORDERS HAVE BEEN RECEIVED. PT HAS HAD FIO2 INCREASED TO 60 PERCENT TO MAINTAIN SATURATION >90 PERCENT. WILL CONTINUE TO MONITOR.
[2021-02-04 04:24] LABS: BASOPHILS ABSOLUTE AUTO 0.03 K/mm3 (0.00-0.23); BASOPHILS PERCENT AUTO 1 % (0-2); EOSINOPHILS PERCENT AUTO 0 % (0-6); Hemoglobin 11.7 g/dL (11.5-16.0); IMMATURE GRAN PERCENT AUTO 2 % (0-1); LYMPHOCYTES ABSOLUTE AUTO 0.52 K/mm3 (0.84-5.20); LYMPHOCYTES PERCENT AUTO 9 % (21-46); MONOCYTES ABSOLUTE AUTO 0.13 K/mm3 (0.16-1.47); MONOCYTES PERCENT AUTO 2 % (4-13); Mean Corpuscular HGB 31.1 pg (26.0-34.0); Mean Corpuscular HGB Conc 32.5 g/dL (31.5-36.5); Mean Corpuscular Volume 96 fL (80-100); Mean Platelet Volume 10.2 fL (9.1-12.4); NEUTROPHILS ABSOLUTE AUTO 5.15 K/mm3 (1.96-9.15); NEUTROPHILS PERCENT AUTO 87 % (41-73); Platelet Count 126 K/mm3 (150-400); RDW Coefficient Variation 13.6 % (11.7-14.2); RDW Standard Deviation 47.3 fL (35.1-46.3); Red Blood Cell Count 3.76 M/mm3 (3.80-5.20); White Blood Cell Count 5.93 K/mm3 (4.00-11.30)
[2021-02-04 04:51] LABS: Alanine Aminotransfer (ALT/SGP 177 U/L (12-78); Albumin/Globulin Ratio 0.5 (0.8-1.8); Alk Phos 200 U/L (50-136); Anion Gap 7 mmol/L (6-16); Aspartate Aminotrans (AST/SGOT 144 U/L (12-37); Bilirubin, Total 0.4 mg/dL (0.1-1.0); Blood Urea Nitrogen 11 mg/dL (8-24); Bun/Creatinine Ratio 16.4 (12.0-20.0); CO2, Blood 26 mmol/L (21-32); Calcium, Blood 7.6 mg/dL (8.5-10.1); Chloride, Blood 105 mmol/L (98-108); Creatinine, Blood 0.67 mg/dL (0.40-1.00); Globulin, Blood 4.1 g/dL (2.2-4.0); Glomerular Filtration Rate >60 (60-); Glucose, Blood 130 mg/dL (70-99); Potassium, Blood 4.7 mmol/L (3.5-5.5); Sodium, Blood 138 mmol/L (136-145); Total Protein, Blood 6.1 g/dL (6.4-8.2)
--- NOTE | 2021-02-04 06:47 | NUR ---
PT HAS BEEN ABLE TO REST SOME THIS NIGHT. MAINTAINS ON 40 L/M FLOW WITH FIO2 60 PERCENT. PT CONTINUES WITH SATURATIONS > 90 PERCENT. NO COMPLAINTS OF PAIN. NO S/S ADVERSE REACTIONS TO ANTIBIOTIC THERAPY. REMAINS AFEBRILE. HAS BEEN ABLE TO MOVE ABOUT IN BED ON HER OWN. WILL CONTINUE TO MONITOR PT, AND WILL REPORT OFF TO ONCOMING RN.
--- NOTE | 2021-02-04 08:28 | NUR ---
ASSUMED CARE OF PT, RT JUST SWITCHED PT OVER FROM BIPAP TO AIRVO, PT IS ON 60L AT 67%, PT DESATS WITH ANY ACTIVITY, COUGHING UP THICK SECRETIONS, PT ABLE TO SUCTION SELF, WILL CONT TO MONITOR
--- NOTE | 2021-02-04 08:49 | NUR ---
SPOKE WITH PT'S DAUGHTER, GABRIELA [phone], ON THE PHONE WITH THE PT'S PERMISSION
--- NOTE | 2021-02-04 15:17 | NUR ---
PT CONT TO BE ON THE AIRVO 60L AND 67% FIO2, PT WILL OCC HAVE BOUTS OF COUGHING AND DESAT INTO THE 80'S, AND OCC MOUTH BREATHES AND WILL DESAT INTO THE 80'S, NO ACUTE DISTRESS, WILL CONT TO MONITOR
--- NOTE | 2021-02-04 15:36 | NUR ---
REPORT TO PADILLA RN, PT TO GO TO PCU 16
--- NOTE | 2021-02-04 16:34 | NUR ---
PT TRANSFERRED TO PCU 16
--- NOTE | 2021-02-04 17:52 | NUR ---
Pt arrived from ICU, and VS stable. She is alert, oriented, and without any complaints except that she is wanting to eat and drink. Able to tolerate sips of ice water and carrying on conversation, completing full sentences without dypnea while sitting up in the bed. Called Dr. Venegas to request full liquid diet to start this evening. new order recieved.
[2021-02-04 21:20] LABS: Vancomycin, Trough 18.1 ug/mL (5.0-10.0)
--- NOTE | 2021-02-04 22:08 | NUR ---
ASSUMED CARE AT 1900. PATIENT ON BEDREST POST ANGIOPLASTY AND STENTING OF RAMUS INTERMEDIUS ARTERY. RIGHT FEMORAL SITE DRESSING IS CLEAN, DRY, AND INTACT, WITH NO BRUISING OR SWELLING. PEDAL PULSES +2 BILATERALLY. PATIENT IS 94% ON RA WITH CLEAR LUNG SOUNDS THROUGHOUT ALL LOBES. SINUS ISMAEL IN THE 40'S-50'S ON MONITOR. NO C/O NAUSEA OR PAIN. PATIENT RESTING COMFORTABLY. CALL LIGHT WITHIN REACH, BED IN LOW POSITION, AND INSTRUCTED TO CALL BEFORE ATTEMPTING TO GET UP.
[2021-02-05 04:17] LABS: PCO2 Arterial 37.3 mmHg (35-45); pH Blood Arterial 7.47 (7.35-7.45)
[2021-02-05 04:21] LABS: BASOPHILS ABSOLUTE AUTO 0.02 K/mm3 (0.00-0.23); BASOPHILS PERCENT AUTO 0 % (0-2); EOSINOPHILS PERCENT AUTO 0 % (0-6); Hemoglobin 11.8 g/dL (11.5-16.0); IMMATURE GRAN ABSOLUTE AUTO 0.09 K/mm3 (0.00-0.10); IMMATURE GRAN PERCENT AUTO 1 % (0-1); LYMPHOCYTES ABSOLUTE AUTO 0.83 K/mm3 (0.84-5.20); LYMPHOCYTES PERCENT AUTO 9 % (21-46); MONOCYTES ABSOLUTE AUTO 0.37 K/mm3 (0.16-1.47); MONOCYTES PERCENT AUTO 4 % (4-13); Mean Corpuscular HGB 30.6 pg (26.0-34.0); Mean Corpuscular HGB Conc 32.8 g/dL (31.5-36.5); Mean Corpuscular Volume 93 fL (80-100); Mean Platelet Volume 10.4 fL (9.1-12.4); NEUTROPHILS ABSOLUTE AUTO 7.65 K/mm3 (1.96-9.15); NEUTROPHILS PERCENT AUTO 85 % (41-73); Platelet Count 166 K/mm3 (150-400); RDW Coefficient Variation 13.5 % (11.7-14.2); RDW Standard Deviation 45.9 fL (35.1-46.3); Red Blood Cell Count 3.86 M/mm3 (3.80-5.20); White Blood Cell Count 8.96 K/mm3 (4.00-11.30)
[2021-02-05 04:39] LABS: Anion Gap 4 mmol/L (6-16); Blood Urea Nitrogen 13 mg/dL (8-24); Bun/Creatinine Ratio 24.2 (12.0-20.0); CO2, Blood 27 mmol/L (21-32); Calcium, Blood 8.5 mg/dL (8.5-10.1); Chloride, Blood 106 mmol/L (98-108); Creatinine, Blood 0.54 mg/dL (0.40-1.00); Glomerular Filtration Rate >60 (60-); Glucose, Blood 122 mg/dL (70-99); Magnesium, Blood 2.3 mg/dL (1.6-2.4); Phosphorus, Blood 3.3 mg/dL (2.5-4.9); Potassium, Blood 4.4 mmol/L (3.5-5.5); Sodium, Blood 137 mmol/L (136-145)
--- NOTE | 2021-02-05 05:20 | NUR ---
SHIFT SUMMARY PT A&OX4. SP02>90% ON AIRVO 60L 65% FI02. PT DESATS DURING COUGHING FITS BUT QUICKLY RECOVERS. PT HAD TESSLON PEARLS PER EMAR X2 THIS SHIFT. INBETWEEN DOSES, PT ASKED FOR MORE COUGH MEDICINE. SPOKE TO MD CALLES WHO PRESCRIBED PRN COUGH SYRUP. MD CALLES IN ROOM TO EXAMINE PT. PEREZ CATHETER DRAINING TO GRAVITY. PT REFUSED REPOSITIONING. ABX AND REMDESIVIR INFUSED PER EMAR. CALL LIGHTI NREACH. WILL GIVE REPORT TO ONCOMING NURSE.
--- NOTE | 2021-02-05 08:02 | NUR ---
MANAGER HIV UPDATE INSTENSIVIST UPDATED ON PT'S RESPIRATORY STATUS, LOW BP AND PAIN. PT REPORTS BACK "SPASMS." MEDICATIOINS/FLUIDS ORDERED PER PHSYCIAN. SEE EMAR.
--- NOTE | 2021-02-05 18:29 | NUR ---
SHIFT SUMMARY PT ALERT AND ORIENTED X 4. HR STABLE. BP STABLE. OXYGEN SATURATION MAINTAINED ABOVE 92% ON AIRVO AT 60L AND 70% FIO2. NO CP OR PRESSURE REPORTED. PT REPORTS PAIN IN BACK. MEDICATED PER PHYSICIAN ORDER. PT SBA TO COMMODE. WILL CONT TO MONITOR UNTIL REPORT GIVEN TO NIGHTSHIFT RN.
--- NOTE | 2021-02-05 19:31 | NUR ---
PHYSICIAN UPDATED PHYSICIAN UPDATED ON PT REQUESTING TO HAVE NORCO Q 4 INSTEAD OF Q 6. ORDERS PROVIDED PER PHYSICIAN. SEE EHR/EMAR.
[2021-02-06 03:25] LABS: BASOPHILS ABSOLUTE AUTO 0.01 K/mm3 (0.00-0.23); BASOPHILS PERCENT AUTO 0 % (0-2); EOSINOPHILS PERCENT AUTO 0 % (0-6); Hematocrit 34.7 % (33.0-51.0); Hemoglobin 11.5 g/dL (11.5-16.0); IMMATURE GRAN ABSOLUTE AUTO 0.09 K/mm3 (0.00-0.10); IMMATURE GRAN PERCENT AUTO 1 % (0-1); LYMPHOCYTES ABSOLUTE AUTO 1.01 K/mm3 (0.84-5.20); LYMPHOCYTES PERCENT AUTO 13 % (21-46); MONOCYTES ABSOLUTE AUTO 0.33 K/mm3 (0.16-1.47); MONOCYTES PERCENT AUTO 4 % (4-13); Mean Corpuscular HGB 31.3 pg (26.0-34.0); Mean Corpuscular HGB Conc 33.1 g/dL (31.5-36.5); Mean Corpuscular Volume 94 fL (80-100); Mean Platelet Volume 10.5 fL (9.1-12.4); NEUTROPHILS ABSOLUTE AUTO 6.11 K/mm3 (1.96-9.15); NEUTROPHILS PERCENT AUTO 81 % (41-73); Platelet Count 170 K/mm3 (150-400); RDW Coefficient Variation 13.4 % (11.7-14.2); RDW Standard Deviation 45.7 fL (35.1-46.3); Red Blood Cell Count 3.68 M/mm3 (3.80-5.20); White Blood Cell Count 7.55 K/mm3 (4.00-11.30)
[2021-02-06 03:41] LABS: Magnesium, Blood 2.4 mg/dL (1.6-2.4)
[2021-02-06 03:42] LABS: Anion Gap 4 mmol/L (6-16); Blood Urea Nitrogen 13 mg/dL (8-24); Bun/Creatinine Ratio 21.4 (12.0-20.0); CO2, Blood 27 mmol/L (21-32); Calcium, Blood 8.6 mg/dL (8.5-10.1); Chloride, Blood 108 mmol/L (98-108); Creatinine, Blood 0.61 mg/dL (0.40-1.00); Glomerular Filtration Rate >60 (60-); Glucose, Blood 99 mg/dL (70-99); Phosphorus, Blood 3.3 mg/dL (2.5-4.9); Potassium, Blood 4.4 mmol/L (3.5-5.5); Sodium, Blood 139 mmol/L (136-145)
[2021-02-06 04:21] LABS: PCO2 Arterial 38.7 mmHg (35-45); PO2 Arterial 57.6 mmHg (80-100); pH Blood Arterial 7.44 (7.35-7.45)
--- NOTE | 2021-02-06 06:39 | NUR ---
SHIFT SUMMARY PT RESTED WELL THORUGH THE NIGHT. ALERT AND ORIENTED, ABLE TO MAKE NEEDS KNOWN. COOPERATIVE WITH PLAN OF CARE. SATS >90% ON AIRVO 60L/69%. TELE NSR/SINUS ISMAEL 53. PAIN IN LOWER BACK, C/O SPASMS - SEE EMAR. PEREZ IN PLACE, DRIAING TO GRAVITY AND KEYUR CARE PERFORMED. R PG, DRAWS NICELY. REMDESIVIR /. VSS. CALL LIGHT WITHIN REACH, BED IN LOWEST POSITION. WILL CONTINUE TO MONITOR.
--- NOTE | 2021-02-06 07:56 | NUR ---
[place] of Care Received report from the night nurse. Pt is a/o x 4 but continues to have ongoing anxiety. She has a hx of COPD and is currenty on AIRVO @ 60 LPM. She has a argueta in place. She is able to make her needs known and calls frequently.
--- NOTE | 2021-02-06 17:23 | NUR ---
Shift Summary Pt is a/o x 4 and has c/o pain throughout the day. She remains very anxious and at times can be unrealistic about her expectations. The patient was asking for her pain meds to be scheduled so that she did not have to call for them and Dr Givens was in the room during this request but no new orders were given. The pt slept for a good part of the day and then woke up in pain, the charge nurse medicated her per the ordrers and the pt was able to fall back to sleep. Her argueta is patent. She contonues on AIRVO @ 60 LPM and her sats have been in the high 90's. She is now PCU status. She is able to make her needs known and does so frequnely.
[2021-02-07 04:30] LABS: BASOPHILS ABSOLUTE AUTO 0.04 K/mm3 (0.00-0.23); BASOPHILS PERCENT AUTO 1 % (0-2); EOSINOPHILS ABSOLUTE AUTO 0.02 K/mm3 (0.00-0.68); EOSINOPHILS PERCENT AUTO 0 % (0-6); Hematocrit 36.7 % (33.0-51.0); IMMATURE GRAN ABSOLUTE AUTO 0.12 K/mm3 (0.00-0.10); IMMATURE GRAN PERCENT AUTO 1 % (0-1); LYMPHOCYTES ABSOLUTE AUTO 1.27 K/mm3 (0.84-5.20); LYMPHOCYTES PERCENT AUTO 15 % (21-46); MONOCYTES ABSOLUTE AUTO 0.32 K/mm3 (0.16-1.47); MONOCYTES PERCENT AUTO 4 % (4-13); Mean Corpuscular HGB 30.6 pg (26.0-34.0); Mean Corpuscular HGB Conc 32.7 g/dL (31.5-36.5); Mean Corpuscular Volume 94 fL (80-100); Mean Platelet Volume 10.9 fL (9.1-12.4); NEUTROPHILS PERCENT AUTO 79 % (41-73); Platelet Count 200 K/mm3 (150-400); RDW Coefficient Variation 13.3 % (11.7-14.2); RDW Standard Deviation 45.4 fL (35.1-46.3); Red Blood Cell Count 3.92 M/mm3 (3.80-5.20); White Blood Cell Count 8.37 K/mm3 (4.00-11.30)
--- NOTE | 2021-02-07 04:41 | NUR ---
DROP IN SPO2 PT NOTED TO BE 83% AND NOT RECOVERING. UPON ENTERING ROOM FIO2 INCREASED FROM 50 TO 70% AT 50L FLOW. PT HAD A COUGHING EPISODE IN WHICH SHE WAS ABLE TO SUCTION UP THICK, MOSS SPUTUM. SPO2 DROPPED AT LOW 67% AND PT WASN'T ABLE TO RECOVER. PLACED ON 15L NON-REBREATHER OVER AIRVO IN ORDER TO GET OXYGENATION >90%. PT ABLE TO MAINTAIN OXYGENATION WITH AIRVO AT 50L AND 70%
[2021-02-07 04:46] LABS: Anion Gap 6 mmol/L (6-16); Blood Urea Nitrogen 13 mg/dL (8-24); Bun/Creatinine Ratio 21.9 (12.0-20.0); CO2, Blood 28 mmol/L (21-32); Calcium, Blood 8.3 mg/dL (8.5-10.1); Chloride, Blood 106 mmol/L (98-108); Creatinine, Blood 0.59 mg/dL (0.40-1.00); Glomerular Filtration Rate >60 (60-); Glucose, Blood 92 mg/dL (70-99); Magnesium, Blood 2.1 mg/dL (1.6-2.4); Potassium, Blood 4.1 mmol/L (3.5-5.5); Sodium, Blood 140 mmol/L (136-145)
--- NOTE | 2021-02-07 05:14 | NUR ---
PATIENT COMPLAINED OF BEING IGNORED AT THE BEGINNING OF SHIFT, " I WAS JUST HERE AND DIDN'T GET IGNORED THEN, NO ONE BRINGS MY MEDICATIONS ON TIME." I EXPLAINED TO THE PATIENT THAT WITH COVID PRECAUTIONS WE BUNDLE CARE AND LIMIT OUR EXPOSURE MUCH POSSIBLE, WE ARE MONITORING YOU OUTSIDE AND STILL DOING OUR HOURLY ROUNDING, I WILL PUT YOUR MEDICATIONS ON THE BOARD SO YOU KNOW WHEN THEY ARE AVAILABLE, I WILL ASSESS YOUR PAIN LEVEL AND BRING YOUR MEDICATIONS TO YOU. I'M SORRY THAT YOU FEEL THAT YOU ARE BEING IGNORED, WE GO INTO HEALTHCARE TO HELP PEOPLE AND ITS DIFFICULT WITH COVID AND NO VISITORS IT CAN FEEL ISOLATING. AT 0441 CHARGE STEPHANIE WENT IN TO HELP PATIENT WHO WAS COUGHING AND DESATURATIONS TO 87%, PATIENT ASKED THAT THE SCRAP DROP ENGINEER NOT BE HER NURSE ANYMORE MATHEW AND THOUGHT SHE WAS KEISHA. I WENT IN TO TALK TO PATIENT AND SHE EXPLAINED THAT SHE WAS SHUT DOWN AND FEELS LIKE HER RECOVERY HAS BEEN SET BACK, ALTHOUGH SHE ADMITTED THAT HER PAIN MEDICATION WAS GIVEN AT THE RIGHT TIMES AND HER COUGH MEDICINE SHE FELT ANXIOUS. PATIENT WAS ASLEEP THROUGHOUT THE NIGHT, AND WAS WOKEN UP AROUND 0400 FOR MORNING LABS, VITALS AND TO GIVE HER PRN MEDICATION. PATIENT FELT THAT SHE WOULD LIKE ALL HER CARE EXPLAINED TO HER AND THAT SHE IS MORE CONCERNED WITH HER LUNG DISEASE THAN WITH COVID " COVID JUST GOT IN THE WAY OF WHAT IS REALLY GOING ON." PATIENT ALSO STATED SHE DID HAVE A PROBLEM WITH THE DAYSHIFT RN THAT SHE TOO " MADE HER ANXIOUS AND DIDN'T FEEL A CONNECTION." DURING THIS CONVERSATION PATIENT HAD TO ASK ME TWICE IF I WAS KEISHA HER NURSE. I LISTENED TO PATIENT CONCERNS AND ASKED IF THERE IS ANYTHING THAT I CAN PASS ON THAT WOULD HELP EASE HER WHEN IT COMES GIVEN HER CARE, PATIENT RESPONSE " THIS CONVERSATION ISN'T GOING ANYWHERE." PATIENT DID SEEM MORE RELAXED AFTER EXPRESSING HER CONCERNS BUT GAVE NO INDICATION ON HOW WE CAN MAKE HER STAY A LITTLE BETTER WHY SHE HEALS, AND HAD A DIFFICULT TIME REMEMBERING WHO SHE WAS TALKING TO.
--- NOTE | 2021-02-07 19:03 | NUR ---
SHIFT SUMMARY PT ON AIRVO MOST OF DAY WITH Fi02 BETWEEN 61-69%. LAYING ON HER LEFT SIDE THIS AFTERNOON WITH SATS 95% AND Fi02 AT 61%. ONCE SHE SAT ON HER BACK AND STARTED COUGHING SATS DROPPED TO 70'S AND REQUIRED HAVING Fi02 INCREASED AGAIN. DIDN'T LIKE SUPPER AND ONLY ATE PUDDING. HAS HAD AN APPROPRIATE ATTITUDE THROUGH THE DAY AND HAS BEEN COOPERATIVE WITH NO INNUENDO ABOUT GENERAL CARE GIVEN.
--- NOTE | 2021-02-08 06:53 | NUR ---
SHIFT SUMMARY PATIENT FOUND TO BE A PLESANT LADY WHO IS A&OX4 WITH SOME GEN WEAKNESS. NOT ANXIOUS TONIGHT APPARENTLY HAD BEEN PREVIOUS SHIFTS AND WAS COMPLIANT WITH CARE. ON AIRVO 50L, 70% SATING MID 90'S. DOING WELL WITH SELF TURNS BUT OFTEN DESATS TO LOW 80'S AFTER EXERTION. PROPER BREATHING ENCOURAGED AND RECOVERS DECENTLY QUICKLY. DRY COUGH NOTED AND PRN MEDS GIVEN PER EMAR. NSR ON THE MONITOR. PRN PAIN MEDS. GIVEN WELL FOR GEN PAIN WITH GOOD RELIEF. PEREZ PATENT DRAINING TO GRAVITY. TOELRATING DIET. 2 LOOSE BM'S THROUGHOUT SHIFT. UP WITH STAND BY ASSIST TO BSC.
--- NOTE | 2021-02-08 10:39 | NUR ---
CARE ASSUMPTION PATIENT ALERT AND ORIENTATED X4. VSS. HIGH FLOW 60L AT 70% AND SPO2 >90%. TELE SR 60S. PATIENT WAS PLEASANT AND TALKATIVE. I INFORMED THE PATIENT OF THE CARE I WAS PROVIDING AND INFORMED HER OF WHEN SHE CAN HAVE HER NEXT PAIN MEDICATION. PATIENT STATED PAIN WAS AT AN 8 FOR HER BACK AND LEFT RIBS. PATIENT RECEIVED PAIN MEDICATION PER EMAR AND STATES PAIN LEVEL IS AT AN 6 ON HER FIRST REASSESSMENT. THE PATIENT SECOND REASSESSMENT, THE PATIENT WAS SLEEPING BUT AROUSEABLE. CALL LIGHT WITHIN REACH. WILL CONTINUE TO MONITOR AND PROVIDE CARE.
--- NOTE | 2021-02-08 13:56 | NUR ---
PT TRANSFERRED FROM PCU 16. REPORT RECEIVED FROM RN. PT ORIENTED TO ROOM, CALL LIGHT. PT REPORTED 9/10 PAIN ON ARRIVAL, MEDICATED PER MAR. PT CONNECTED TO AIRVO VENT PER PREVIOUS SETTINGS 50 LPM, 67%. PT DENIES ANY OTHER CONCERNS.
--- NOTE | 2021-02-08 19:26 | NUR ---
SHIFT SUMMARY: PT TX FROM PCU 16 TODAY. PT A/O X 4, NO ACUTE CONCERNS AT THIS TIME. REMAINS ON AIRVO FOR 02. PAIN MANAGED PER EMAR.
--- NOTE | 2021-02-09 03:28 | NUR ---
METAL POLISHER AND BUFFER APPRENTICE SUMMARY HAS BEEN RESTING QUIETLY WITH FEW INTERRUPTIONS SINCE HS. MED TELE CONTINUES, NOTED SEVERAL TIMES HR DROPPED INTO THE MID 40'S. WHEN ASSESSED AT BEDSIDE, PT DENIED CARDIAC DISTRESS, SAID SHE WAS PRONING TO HALP HER BREATHING. ISOLATOIN PRECAUTIONS MAINTAINED. O2 HIGH FLOW AIR VO AT 50L/MIN AT 70%. CALL LIGHT IN REACH
--- NOTE | 2021-02-09 04:36 | NUR ---
NOTE PT DESATS INTO THE 80'S. UPON ASSESSMENT AT BEDSIDE, VOICED SHE WAS "BRUSHING" HER TEETH. ENCOURAGED TO KANDI DEEP BREATHS WITH O2 ON, RT CAME IN TO ASSESS PT WELL. SATS INCREASED. WILL MONITOR
[2021-02-09 05:51] LABS: Anion Gap 5 mmol/L (6-16); Blood Urea Nitrogen 14 mg/dL (8-24); Bun/Creatinine Ratio 24.7 (12.0-20.0); CO2, Blood 29 mmol/L (21-32); Calcium, Blood 8.2 mg/dL (8.5-10.1); Chloride, Blood 104 mmol/L (98-108); Creatinine, Blood 0.57 mg/dL (0.40-1.00); Glomerular Filtration Rate >60 (60-); Glucose, Blood 129 mg/dL (70-99); Potassium, Blood 3.9 mmol/L (3.5-5.5); Sodium, Blood 138 mmol/L (136-145)
--- NOTE | 2021-02-09 08:52 | NUR ---
IMMODIUM GIVEN FOR C/O DIARRHEA, LIQUID COUGH MEDICINE FOR C/O COUGH, ANALGESIC FOR C/O PAIN.
--- NOTE | 2021-02-09 18:03 | NUR ---
SHIFT SUMMARY; PT A/O X 3 COOPERATIVE W/CARE. PT SATS 95% VIA AIRVO. DESATS TO LOW 80'S WHEN UP TO BSC AND BECOMES VERY SOB. RECOVERS AFTER A FEW MINUTES. CONTINUES TO HAVE NON PRODUCTIVE HARSH COUGH ESPECIALLY INDUCED WITH ACTIVITY. PT CONTINUES TO C/OF PAIN AND REQUESTS MEDICATIONS SOON SHE KNOWS THEY ARE DUE TO BE GIVEN. MEDICATIONS GIVEN PER AUG.
--- NOTE | 2021-02-09 22:29 | NUR ---
O2 SATS DROPPING ON MONITOR OUTSIDE ROOM. UPON BEDSIDE ASSESSMENT NOTED O2 TUBING NOT IN NOSTRILS. AWAKENED AND INSTRUCTED TO PUT THE TUBING IN PLACE. PT DID SO AND O2 SATS INCREASED TO 90'S AGAIN. ISOLATION PRECAUTIONS MAINTAINED. CALL LIGHT IN REACH
--- NOTE | 2021-02-10 04:23 | NUR ---
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 EACH TIME, WAS CUED TO PUT HER O2 TUBING BACK ON AND ONCE DONE, SATS WOULD RETURN TO THE 90'S, ETC. ONE TIME WHEN ASSESSED SHE VOICED A "SURREAL" DREAM OF WHAT WAS HAPPENING, AND THAT SHE REALIZED IT WAS ACTUAL REALITY. BREATH SOUNDS DIMINISHED. O2 PER AIRVO. CALL LIGHT IN REACH
--- NOTE | 2021-02-10 19:45 | NUR ---
SHIFT SUMMARY: PT CONTINUES TO IMPROVE ON AIRVO AT 40 LPM AT THIS TIME. NO ACUTE INCIDENTS THIS SHIFT.
--- NOTE | 2021-02-11 07:23 | NUR ---
SHIFT SUMMARY PATIENT ALERT AND ORIENTED. MEDICATED PER EMAR FOR PAIN AND COUGHING. NO ACUTE ISSUES NOTED.
--- NOTE | 2021-02-11 16:18 | NUR ---
NO ACUTE CHANGES PT MANAGING WEL ON AIRVO 40L AT 40%. PT AOX4 AND COOPERATIVE OF CARE NOT DISTRESS NOTED. PT DOES SEEM TO DESAT WHEN SITTING AT SIDE OF BED WORKING WITH PT OR USING COMMODE. PT DOES RECOVER AFTER SHE SITS STILL FOR A WHILE BREATHING. PT TREATED FOR PAIN PER EMAR WILL CONTINUE TO MONITOR.
--- NOTE | 2021-02-12 05:57 | NUR ---
SHIFT SUMMARY PATIENT ALERT AND ORIENTED. MEDICATED PER EMAR FOR PAIN AND COUGH. O2 REDUCED TO 11 VIA HIGH FLOW NASAL CANULA. IV PATENT AND FLUSHED. BED IN LOWEST POSITION WITH WHEELS LOCKED. CALL LIGHT WITHIN REACH. REPORT GIVEN TO ONCOMING [place].
--- NOTE | 2021-02-12 16:17 | NUR ---
SHIFT SUMMARY PATIENT IS A/O, CALLS APPROPRIATELY, INDEPENDENT TO BEDSIDE COMMODE. PATIENT IS ON 11 LITERS OF HIGH FLOW O2, SATS ABOVE 90%. PATIENT HAS BEEN MEDICATED FOR COUGH AND PAIN PER THE MAR. PEREZ WAS DISCONTINUED THIS AM. PATIENT WORKED WITH PHYSICAL THERAPY THIS AM. PATIENT STILL HAS SOME SHORTNESS OF BREATH WITH ACTIVITY. VITAL SIGNS STABLE, CALL LIGHT WITHIN REACH AND PATIENT IS IN BED RESTING.
--- NOTE | 2021-02-13 06:31 | NUR ---
SHIFT SUMMARY PATIENT ALERT AND ORIENTED. MEDICATED PER EMAR FOR PAIN AND COUGH. O2 TITRATED DOWN TO 7 LITERS O2 VIA HIGH FLOW NASAL CANULA. POWERGLIDE PATENT AND FLUSHED. BED IN LOWEST POSITION WITH WHEELS LOCKED. CALL LIGHT WITHIN REACH. REPORT GIVEN TO ONCOMING RN.
[2021-02-13 06:39] LABS: Hematocrit 36.5 % (33.0-51.0); Hemoglobin 12.1 g/dL (11.5-16.0); Mean Corpuscular HGB 31.1 pg (26.0-34.0); Mean Corpuscular HGB Conc 33.2 g/dL (31.5-36.5); Mean Corpuscular Volume 94 fL (80-100); Mean Platelet Volume 10.6 fL (9.1-12.4); Platelet Count 282 K/mm3 (150-400); RDW Coefficient Variation 13.3 % (11.7-14.2); RDW Standard Deviation 45.4 fL (35.1-46.3); Red Blood Cell Count 3.89 M/mm3 (3.80-5.20); White Blood Cell Count 15.55 K/mm3 (4.00-11.30)
[2021-02-13 06:56] LABS: Anion Gap 2 mmol/L (6-16); Blood Urea Nitrogen 15 mg/dL (8-24); Bun/Creatinine Ratio 22.5 (12.0-20.0); CO2, Blood 36 mmol/L (21-32); Calcium, Blood 8.9 mg/dL (8.5-10.1); Chloride, Blood 99 mmol/L (98-108); Creatinine, Blood 0.67 mg/dL (0.40-1.00); Glomerular Filtration Rate >60 (60-); Glucose, Blood 91 mg/dL (70-99); Potassium, Blood 4.8 mmol/L (3.5-5.5); Sodium, Blood 137 mmol/L (136-145)
[2021-02-13 07:09] LABS: BAND PERCENT MAN 2 % (0-8); BASOPHILS PERCENT MAN 0 % (0-2); EOSINOPHILS PERCENT MAN 0 % (0-6); LYMPHOCYTES ABSOLUTE MAN 1.39 K/mm3 (0.84-5.20); LYMPHOCYTES PERCENT MAN 9 % (21-46); METAMYELOCYTE ABSOLUTE MAN 0.15 K/mm3 (0.00-0.00); METAMYELOCYTE PERCENT MAN 1 % (0-0); MONOCYTES ABSOLUTE MAN 0.77 K/mm3 (0.16-1.47); MONOCYTES PERCENT MAN 5 % (4-13); MYELOCYTE ABSOLUTE MAN 0.62 K/mm3 (0.00-0.00); MYELOCYTE PERCENT MAN 4 % (0-0); NEUTROPHILS ABSOLUTE MAN 12.59 K/mm3 (1.96-9.15); SEG NEUTROPHILS PERCENT MAN 79 % (41-73); TOTAL CELLS COUNTED 100
--- NOTE | 2021-02-13 13:34 | NUR ---
SHANTE JACKSON AWARE PATIENT ON 2 LPM AT 92 % AND PER PATIENT SHE IS NORMALLY ON 4LPM AT HOME
--- NOTE | 2021-02-13 13:49 | NUR ---
DISCHARGE DISCHARGE INSTRUCTIONS, MEDICATION LIST AND NEED FOR FOLLOW UP APPOINTMENT REVIEWED WITH PT. PT SEEMED TO BE UPSET ABOUT DISCHARGING, MAKING STATEMENTS ABOUT BEING "KICKED OUT". PT IS CURRENTLY ON 2LNC AND APPEARS STABLE. PT CLAIMS NO PCP BUT SAYS SHE IS IN THE PROCESS OF GETTING A PCP, DECLINED NEW PT REFERRAL PACKET. WAITING FOR TO RATE MARKER.
--- NOTE | 2021-02-13 15:13 | NUR ---
GIVEN W/C RIDE DOWN TO POV WHERE S.O. IS.
== END 2021-02-13 15:02 | disposition home or self-care (01) | DRG 871 ==
LOC: ER 17:55 → ERHOLD 21:20 → ICUE 21:20 → PCU 02-04 16:37 → MEDS 02-08 13:40
PROVIDERS: Family Medicine; Internal Medicine Critical Care Medicine; Student in an Organized Health Care Education/Training Program; ADMIT Hospitalist
PROC: 8E0ZXY6 Isolation (ICD-10-PCS; principal; 2021-02-03)
PROC: XW033E5 Introduction of Remdesivir Anti-infective into Peripheral Vein, Percutaneous Approach, New Technology Group 5 (ICD-10-PCS; 2021-02-03)
PROC: 5A09357 Assistance with Respiratory Ventilation, Less than 24 Consecutive Hours, Continuous Positive Airway Pressure (ICD-10-PCS; 2021-02-03)
PROC: 3E0333Z Introduction of Anti-inflammatory into Peripheral Vein, Percutaneous Approach (ICD-10-PCS; 2021-02-04)
DX: A41.89 Other specified sepsis (principal); U07.1 COVID-19; J12.82 Pneumonia due to coronavirus disease 2019; J96.01 Acute respiratory failure with hypoxia; E87.2 Acidosis; J44.0 Chronic obstructive pulmonary disease with (acute) lower respiratory infection; R65.20 Severe sepsis without septic shock; G43.909 Migraine, unspecified, not intractable, without status migrainosus; M62.830 Muscle spasm of back; I28.8 Other diseases of pulmonary vessels; Z79.52 Long term (current) use of systemic steroids; Z79.899 Other long term (current) drug therapy; Z88.5 Allergy status to narcotic agent; Z90.710 Acquired absence of both cervix and uterus; Z87.891 Personal history of nicotine dependence; Z88.6 Allergy status to analgesic agent
CPT/HCPCS: 36415; 36600; 51702; 71045; 71260; 80048; 80053; 80202; 82803; 83605; 83735; 84100; 84145; 85025; 85379; 87040; 87070; 87205; 93005; 93010; 94660; 94762; 96365-59; 96367-59; 96375-59; 97110; 97161; 97530; 99285-25; A9270; C1751; J0456; J0692; J0696; J1100; J1650; J1885; J3010; J3370; J7030; J7040; J7050; Q9967; U0004

== ENCOUNTER → 2021-05-07 | Outpatient (CLI) | payer BC ==
[~2021-05-07] MED LIST changes: +C COMPLEX1000 M1 PO; +CALCIUM 1,0001 EACH PO; +Hair, Skin & N1 EACH PO; +PROBIOTIC1 EA13 PO; +VITAMIN D31000 UNI1 PO
[2021-05-12 13:11] LABS: HPV 16 Negative (Negative); HPV 18 Negative (Negative); HPV OTHER HR TYPES Negative (Negative)
== END ==
LOC: LAB SHORT 18:40
PROVIDERS: Family Medicine
DX: Z01.419 Encounter for gynecological examination (general) (routine) without abnormal findings (principal); Z88.5 Allergy status to narcotic agent; Z88.6 Allergy status to analgesic agent
CPT/HCPCS: 87624; G0145

== ENCOUNTER 2021-06-11 04:40 | Inpatient (IN) | payer BC ==
[~2021-06-11] VITALS: Ht 162.6 cm; Wt 75.2 kg
[2021-06-11 05:10] LABS: Source, Urine Catheter
[2021-06-11 05:13] LABS: BASOPHILS ABSOLUTE AUTO 0.07 K/mm3 (0.00-0.23); BASOPHILS PERCENT AUTO 0 % (0-2); EOSINOPHILS ABSOLUTE AUTO 0.05 K/mm3 (0.00-0.68); EOSINOPHILS PERCENT AUTO 0 % (0-6); Hemoglobin 14.3 g/dL (11.5-16.0); IMMATURE GRAN ABSOLUTE AUTO 0.69 K/mm3 (0.00-0.10); IMMATURE GRAN PERCENT AUTO 3 % (0-1); LYMPHOCYTES ABSOLUTE AUTO 0.89 K/mm3 (0.84-5.20); LYMPHOCYTES PERCENT AUTO 4 % (21-46); MONOCYTES ABSOLUTE AUTO 1.91 K/mm3 (0.16-1.47); MONOCYTES PERCENT AUTO 8 % (4-13); Mean Corpuscular HGB 29.9 pg (26.0-34.0); Mean Corpuscular HGB Conc 32.5 g/dL (31.5-36.5); Mean Corpuscular Volume 92 fL (80-100); NEUTROPHILS ABSOLUTE AUTO 21.96 K/mm3 (1.96-9.15); NEUTROPHILS PERCENT AUTO 86 % (41-73); Platelet Count 294 K/mm3 (150-400); RDW Coefficient Variation 12.5 % (11.7-14.2); RDW Standard Deviation 42.3 fL (35.1-46.3); Red Blood Cell Count 4.79 M/mm3 (3.80-5.20); White Blood Cell Count 25.57 K/mm3 (4.00-11.30)
[2021-06-11 05:20] LABS: Bilirubin, Urine Neg (Neg); Blood, Urine 2+ (Neg); Glucose Qualitative, Urine Neg (Neg); Ketones, Urine 4+ (Neg); Leukocyte Esterase, Urine Neg (Neg); Nitrite, Urine Neg (Neg); Protein, Urine 3+ (Neg); Urobilinogen, Urine NORM (Normal)
[2021-06-11 05:22] LABS: Appearance, Urine Hazy (Clear); Color, Urine Yellow (P-Yellow)
[2021-06-11 05:24] LABS: Amorphous Mod (0-Heavy); Bacteria Few /hpf; Hyaline Casts 50-100 /lpf (0-2); Red Blood Cells, Urine 0-2 /hpf (0-2); Squamous Epithelial Cells Rare /hpf (Few)
[2021-06-11 05:25] LABS: WBC Cast 0-2 /lpf (0)
[2021-06-11 05:26] LABS: U Amphetamine Screen Not Detected; U Barbituate Screen Not Detected; U Benzodiazapine Screen Not Detected; U Buprenorphine Screen Not Detected; U Cannabinoids Screen Not Detected; U Cocaine Screen Not Detected; U Methadone Screen Not Detected; U Methamphetamine Screen Not Detected; U Opiates Screen DETECTED; U Oxycodone Screen Not Detected; U Phencyclidine Screen Not Detected; U Propoxyphene Screen Not Detected
[2021-06-11 05:34] LABS: Base Excess Venous -6.1 mmol/L; Bicarbonate Venous 18.7 mmol/L (24.0-30.0); PCO2 Venous 44.3 mmHg (38-42); PO2 Venous 31.9 mmHg (38-42); pH Blood Venous 7.28 (7.34-7.37)
[2021-06-11 05:45] LABS: Alanine Aminotransfer (ALT/SGP 29 U/L (12-78); Albumin, Blood 2.9 g/dL (3.4-5.0); Albumin/Globulin Ratio 0.5 (0.8-1.8); Alk Phos 189 U/L (50-136); Anion Gap 14 mmol/L (6-16); Aspartate Aminotrans (AST/SGOT 35 U/L (12-37); Bilirubin, Total 0.7 mg/dL (0.1-1.0); Blood Urea Nitrogen 16 mg/dL (8-24); Bun/Creatinine Ratio 16.3 (12.0-20.0); CO2, Blood 21 mmol/L (21-32); Calcium, Blood 9.9 mg/dL (8.5-10.1); Chloride, Blood 101 mmol/L (98-108); Creatinine, Blood 0.98 mg/dL (0.40-1.00); Ethanol (Alcohol), Blood, Med <3 mg/dL; Globulin, Blood 5.6 g/dL (2.2-4.0); Glomerular Filtration Rate 60 (60-); Glucose, Blood 122 mg/dL (70-99); Sodium, Blood 136 mmol/L (136-145); Total Protein, Blood 8.5 g/dL (6.4-8.2); Troponin I <0.015 ng/mL (0.000-0.040)
[2021-06-11 06:08] LABS: Beta-hydroxybutyrate 21.7 mg/dL (0.2-2.8); Salicylate <1.7 mg/dL (2.8-20.0)
[2021-06-11 07:27] LABS: Influenza A, PCR NEGATIVE (NEGATIVE); Influenza B, PCR NEGATIVE (NEGATIVE); Resp Syncytial Virus, PCR NEGATIVE (NEGATIVE); SARS-Cov-2 (COVID-19) PCR, MMC NEGATIVE (NEGATIVE)
[2021-06-11 07:57] LABS: Glucose, CSF 42 mg/dL (40-70)
[2021-06-11 08:20] LABS: Automated CSF WBC Count 1.278 K/mm3 (0-5); WBC Count, CSF 1278 /mm3 (0-5)
[2021-06-11 08:27] LABS: WBC Count, CSF 1370 /mm3 (0-5)
[2021-06-11 08:55] LABS: RBC Count, CSF 199 /mm3 (0-0)
[2021-06-11 09:07] LABS: RBC Count, CSF 14 /mm3 (0-0)
[2021-06-11 09:08] LABS: Appearance, CSF Clear (Clear); Color, CSF No Color (No Color)
[2021-06-11 09:10] LABS: Appearance, CSF Hazy (Clear); Color, CSF No Color (No Color)
[2021-06-11 09:13] LABS: Lymphocytes, CSF 4 % (40-80); Neutrophils, CSF 96 % (0-6)
[2021-06-11 09:14] LABS: Cryptococcus Neoformans/Gattii Not Detected (NOT DETECT); Enterovirus Not Detected (NOT DETECT); Escherichia Coli K1 Not Detected (NOT DETECT); Haemophilus Influenza Not Detected (NOT DETECT); Herpes Simplex Virus 1 Not Detected (NOT DETECT); Herpes Simplex Virus 2 Not Detected (NOT DETECT); Human Herpesvirus 6 Not Detected (NOT DETECT); Human Parechovirus Not Detected (NOT DETECT); Listeria Monocytogenes Not Detected (NOT DETECT); Neisseria Meningitidis Not Detected (NOT DETECT); Streptococcus Agalactiae Not Detected (NOT DETECT); Streptococcus Pneumoniae Not Detected (NOT DETECT); Varicella Zoster Virus Not Detected (NOT DETECT)
[2021-06-11 09:16] LABS: Lymphocytes, CSF 1 % (40-80); Monocytes, CSF 6 % (15-45); Neutrophils, CSF 93 % (0-6)
[2021-06-11] MEDS ORDERED: HYDROCODONE-AC1 EA15 PO (11:39)
--- NOTE | 2021-06-11 12:00 | NUR ---
ARRIVAL TO ICU PT ARRIVES TO ICU FROM ER AT 1055. PT THRASHING IN BED. PULLING ON LINES. TURNS HEAD TOWARDS VOICE WHEN NAME CALLED. DOES NOT FOLLOW DIRECTIONS. DOES NOT TRACK. NOT REDIRECTABLE. PUPILS 5 MM, REACTIVE. MAEW. CHIN, 102.2, GIVEN TYLENOL IN ER, FANS AND ICE PACKS IN PLACE. LUNGS CLEAR. O2 REMOVED. SATS >95%. TACHYPENIC, MOUTH BREATHING. DRY MUCOSA. ST ON MONITOR, RATE 110'S. BP STABLE. ABD ROUND, SOFT, NON TENDER. BT X 4. PEREZ PLACED. CLEAR YELLOW URINE OUT. DR MADRID UPDATED LUIS. LUIS REPORTS PT EXPOSED TO [facility] 2 WEEKS AGO WHO WAS ADMITTED TO [facility] 1 WEEK AGO FOR STREP MENINGITIS. DAUGHTER IN LAW REPORT PT BEING WORKED UP FOR POSSIBLE AUTO IMMUNE DISORDER. WILL CONTINUE TO MONITOR.
[2021-06-11 12:07] LABS: Source, Urine Catheter
[2021-06-11 12:20] LABS: Appearance, Urine Clear (Clear); Bilirubin, Urine Neg (Neg); Blood, Urine 2+ (Neg); Color, Urine Yellow (P-Yellow); Glucose Qualitative, Urine Neg (Neg); Ketones, Urine 3+ (Neg); Leukocyte Esterase, Urine Neg (Neg); Nitrite, Urine Neg (Neg); Protein, Urine 2+ (Neg); Urobilinogen, Urine NORM (Normal)
[2021-06-11 12:36] LABS: Bacteria Few /hpf; Red Blood Cells, Urine 0-2 /hpf (0-2); Squamous Epithelial Cells Few /hpf (Few)
[2021-06-11 12:37] LABS: Amorphous Light (0-Heavy); Hyaline Casts 0-2 /lpf (0-2); Mucus Light (0-Heavy)
--- NOTE | 2021-06-11 17:51 | NUR ---
SHIFT SUMMARY PT A&OX 1. ALSO ORIENTED TO . WAKES c VERBAL STIMULI. DOES NOT FOLLOW COMMANDS. AGITATED WHEN AWAKE. SPEECH IMPROVED. SPEAKS IN SHORT SENTANCES. FENTANYL GTT STARTED, INFUSING AT 25 MCG/HR. MAEW. ANTIBIOTICS AND ANTIVIRALS INFUSED. NS AT 125 ML/HR. TEMP PROBE PEREZ PLACED, 98.1. URINE CLEAR, YELLOW. BP STABLE. SR, RATE 90'S. POWERGLIDE PLACED TO LUE. WILL CONTINUE TO MONITOR UNTIL REPORT TO ONCOMING NURSE.
--- NOTE | 2021-06-11 20:20 | NUR ---
ASSUMED CARE AT 1900 PT LAYING IN BED SLEEPING; IS RESPONSIVE TO VERBAL STIMULI BUT WHEN NOT STIMULATED IS SLEEPING. ORIENTED TO SLEF, FAMILY, AND FOLLOWS DIRECTIONS BUT DOES NOT KNOW TIME OR PLACE. PERRLA. STONG EQUAL BILATERAL HAND PICKER OPERATOR. NO C/O PAIN OR HEADACHE; FENTANYL INFUSING AT 25MCG/HR. TEMP 99.7. SPO2 >94% ON RA. HR 100-110. BP STABLE. PEREZ IN PLACE AND DRAINING TO GRAVITY. SEE SHIFT ASSESSMENT FOR FULL ASSESSMENT.
[2021-06-12 03:47] LABS: Hematocrit 33.4 % (33.0-51.0); Hemoglobin 11.1 g/dL (11.5-16.0); Mean Corpuscular HGB 30.2 pg (26.0-34.0); Mean Corpuscular HGB Conc 33.2 g/dL (31.5-36.5); Mean Corpuscular Volume 91 fL (80-100); Mean Platelet Volume 10.2 fL (9.1-12.4); Platelet Count 211 K/mm3 (150-400); RDW Coefficient Variation 12.7 % (11.7-14.2); RDW Standard Deviation 41.6 fL (35.1-46.3); Red Blood Cell Count 3.68 M/mm3 (3.80-5.20); White Blood Cell Count 26.31 K/mm3 (4.00-11.30)
[2021-06-12 04:24] LABS: Magnesium, Blood 2.6 mg/dL (1.6-2.4)
[2021-06-12 04:26] LABS: Alanine Aminotransfer (ALT/SGP 23 U/L (12-78); Albumin, Blood 1.9 g/dL (3.4-5.0); Albumin/Globulin Ratio 0.5 (0.8-1.8); Alk Phos 105 U/L (50-136); Anion Gap 7 mmol/L (6-16); Aspartate Aminotrans (AST/SGOT 26 U/L (12-37); Bilirubin, Total 0.3 mg/dL (0.1-1.0); Blood Urea Nitrogen 19 mg/dL (8-24); CO2, Blood 24 mmol/L (21-32); Calcium, Blood 8.2 mg/dL (8.5-10.1); Chloride, Blood 112 mmol/L (98-108); Creatinine, Blood 0.66 mg/dL (0.40-1.00); Globulin, Blood 3.6 g/dL (2.2-4.0); Glomerular Filtration Rate >60 (60-); Glucose, Blood 127 mg/dL (70-99); Potassium, Blood 3.6 mmol/L (3.5-5.5); Sodium, Blood 143 mmol/L (136-145); Total Protein, Blood 5.5 g/dL (6.4-8.2)
[2021-06-12 05:23] LABS: BAND PERCENT MAN 23 % (0-8); BASOPHILS PERCENT MAN 0 % (0-2); EOSINOPHILS PERCENT MAN 0 % (0-6); LYMPHOCYTES ABSOLUTE MAN 0.52 K/mm3 (0.84-5.20); LYMPHOCYTES PERCENT MAN 2 % (21-46); MONOCYTES ABSOLUTE MAN 0.78 K/mm3 (0.16-1.47); MONOCYTES PERCENT MAN 3 % (4-13); NEUTROPHILS ABSOLUTE MAN 24.99 K/mm3 (1.96-9.15); SEG NEUTROPHILS PERCENT MAN 72 % (41-73); TOTAL CELLS COUNTED 100
--- NOTE | 2021-06-12 06:22 | NUR ---
END OF SHIFT SUMMARY NO ACUTE EVENTS OVERNIGHT. PT MENTATION IMPROVED T/O THE SHIFT. PT IS NOW ABLE TO STATE THAT SHE IS AT [facility], AND THAT IT IS MAY; SPEACH IS MORE CLEAR AND IS ABLE TO HOLD A SHORT CONVERSATION; SLEEPS WHEN NOT STIMULATED. RECTAL TYLENOL GIVEN X1 FOR TEMP OF 101.3; NOW 97.8. SPO2 >95% ON 2L NC. HR 90-110. SBP 100-115. PEREZ IN PLACE WITH 475ML OUTPUT. NS INFUSING AT 125ML/HR. FENTANYL INFUSING AT 25MCG/HR. WILL REPORT TO AM RN WHEN AVAILABLE.
--- NOTE | 2021-06-12 09:10 | NUR ---
ASSUMED CARE REPORT FROM BONNIE IBRAHIM AT 0700. PT WAKES c VERBAL STIMULI. FOLLOWS COMMANDS. A&OX 3. DOES NOT RECALL EVENTS THAT LED TO HOSPITALIZATION. REPORTS IRENE AND CHILLS. FENTANYL GTT INFUSING AT 25 MCG/HR. TEMP 100.1, RECTAL TYLENOL GIVEN. PT ABLE TO ASSIST c REPOSITIONING. DELFINO. VSS. PEREZ PATENT, DRAINING CLEAR YELLOW URINE TO GRAVITY. WILL CONTINUE TO MONITOR.
--- NOTE | 2021-06-12 18:32 | NUR ---
SHIFT SUMMARY NO ACUTE CHANGES THIS SHIFT. PT A&OX 3. FOLLOWS COMMANDS. ABLE TO HAVE FULL CONVERSATION. 2 PERSON ASSIST TO BEDSIDE COMMODE. PT C/O IRENE AND NECK PAIN. OXYCODONE GIVEN. LOW GRADE TEMPS THIS SHIFT. MEDICATED c TYLENOL TWICE. VSS. STATUS CHANGED TO PCU, NEURO CHECKS q4 HR. FENTANYL D/C'D THIS SHIFT. WILL CONTINUE TO MONITOR UNTIL REPORT TO ONCOMING NURSE.
--- NOTE | 2021-06-12 19:00 | NUR ---
ASSUMED CARE OF PT, BEDSIDE REPORT RECEIVED. PT IS NOTED RESTING QUIETLY AND APPEARS TO BE SLEEPING, RESP EVEN AND REGULAR, SATS MAINTAINING, SEE SHIFT ASSESSMENT FOR FURTHER
[2021-06-12 19:08] LABS: Vancomycin, Trough 13.6 ug/mL (5.0-10.0)
[2021-06-13 03:57] LABS: BASOPHILS ABSOLUTE AUTO 0.04 K/mm3 (0.00-0.23); BASOPHILS PERCENT AUTO 0 % (0-2); EOSINOPHILS ABSOLUTE AUTO 0.04 K/mm3 (0.00-0.68); EOSINOPHILS PERCENT AUTO 0 % (0-6); Hematocrit 34.7 % (33.0-51.0); Hemoglobin 11.5 g/dL (11.5-16.0); IMMATURE GRAN ABSOLUTE AUTO 0.25 K/mm3 (0.00-0.10); IMMATURE GRAN PERCENT AUTO 1 % (0-1); LYMPHOCYTES ABSOLUTE AUTO 0.91 K/mm3 (0.84-5.20); LYMPHOCYTES PERCENT AUTO 4 % (21-46); MONOCYTES ABSOLUTE AUTO 0.85 K/mm3 (0.16-1.47); MONOCYTES PERCENT AUTO 4 % (4-13); Mean Corpuscular HGB 30.1 pg (26.0-34.0); Mean Corpuscular HGB Conc 33.1 g/dL (31.5-36.5); Mean Corpuscular Volume 91 fL (80-100); Mean Platelet Volume 10.7 fL (9.1-12.4); NEUTROPHILS ABSOLUTE AUTO 18.98 K/mm3 (1.96-9.15); NEUTROPHILS PERCENT AUTO 90 % (41-73); Platelet Count 224 K/mm3 (150-400); RDW Coefficient Variation 12.7 % (11.7-14.2); RDW Standard Deviation 41.6 fL (35.1-46.3); Red Blood Cell Count 3.82 M/mm3 (3.80-5.20); White Blood Cell Count 21.07 K/mm3 (4.00-11.30)
[2021-06-13 04:16] LABS: Anion Gap 5 mmol/L (6-16); Blood Urea Nitrogen 21 mg/dL (8-24); Bun/Creatinine Ratio 33.1 (12.0-20.0); CO2, Blood 26 mmol/L (21-32); Calcium, Blood 8.7 mg/dL (8.5-10.1); Chloride, Blood 109 mmol/L (98-108); Creatinine, Blood 0.63 mg/dL (0.40-1.00); Glomerular Filtration Rate >60 (60-); Glucose, Blood 138 mg/dL (70-99); Potassium, Blood 3.2 mmol/L (3.5-5.5); Sodium, Blood 140 mmol/L (136-145)
--- NOTE | 2021-06-13 04:55 | NUR ---
PT MENTATION CONTINUES TO IMPROVE THROUGHOUT SHIFT, HEAD AND NECK PAIN CONTINUES HOWEVER PT DOES REPORT THAT THIS IS SOMEWHAT IMPROVED THROUGHOUT NOC WELL, SHE ADMITS TO SEVERE PAIN WITH COUGH. VITALS HAVE REMAINED STABLE THROUGHOUT NOC. PT MEDICATED FOR PAIN X 1 THIS SHIFT. OTHERWISE NO ACUTE CHANGES.
--- NOTE | 2021-06-13 09:23 | NUR ---
ASSUMED CARE PT RESTING IN BED. WAKES c VERBAL STIMULI. A&O X4. FOLLOWS COMMANDS. REPORTS IRENE AND NECK PAIN, 03/28. MEDICATED c TYLENOL, WILL REQUEST ADDITIONAL PAIN MEDS. PERLA. SALEH. ABLE TO REPOSITION SELF IN BED. DENIES COMPLAINTS OTHER THAN IRENE. PEREZ PATENT, DRAINING TO GRAVITY. VSS. CALL LIGHT IN REACH. WILL CONTINUE TO MONITOR.
--- NOTE | 2021-06-13 12:17 | NUR ---
UPDATE SMALL PUSTULES NOTED OVER ENTIRE BODY. PT STATES SHE DOES NOT TYPICALLY HAVE THESE. IV TO RIGHT HAND INFILTRATED. SLIGHT SWELLING NOTED, BLANCHABLE. SLOUGHING OF SUPERFICIAL LAYER OF SKIN, [address] MADRID NOTIFIED OF POSITIVE BLOOD CULTURES, REPEAT CULTURES ORDERED.
--- NOTE | 2021-06-13 18:19 | NUR ---
SHIFT SUMMARY NO ACUTE CHANGES TO MENTATION THIS SHIFT. + BLOOD CULTURES, DISCUSSED RESULTS AND SKIN FINDINGS TO DR MADRID. CTA CHEST COMPLETED, MRI ORDERED, ANTIBIOTICS CHANGED. REPEAT CULTURES DRAWN. VSS. PT ONE PERSON ASSIST TO BSC. GENERALIZED WEAKNESS. CHRONIC PAIN TO RIGHT ANKLE, UNCHANGED. POOR APPETITE, INCREASE IN PO FLUIDS THIS SHIFT. MEDICATED c FENTANYL FOR IRENE c GOOD RESULTS. WILL CONTINUE TO MONITOR UNTIL REPORT TO ONCOMING NURSE.
[2021-06-14 03:53] LABS: BASOPHILS ABSOLUTE AUTO 0.04 K/mm3 (0.00-0.23); BASOPHILS PERCENT AUTO 0 % (0-2); EOSINOPHILS PERCENT AUTO 0 % (0-6); Hematocrit 32.1 % (33.0-51.0); IMMATURE GRAN ABSOLUTE AUTO 0.25 K/mm3 (0.00-0.10); IMMATURE GRAN PERCENT AUTO 2 % (0-1); LYMPHOCYTES ABSOLUTE AUTO 0.89 K/mm3 (0.84-5.20); LYMPHOCYTES PERCENT AUTO 6 % (21-46); MONOCYTES ABSOLUTE AUTO 1.31 K/mm3 (0.16-1.47); MONOCYTES PERCENT AUTO 8 % (4-13); Mean Corpuscular HGB 29.9 pg (26.0-34.0); Mean Corpuscular HGB Conc 34.3 g/dL (31.5-36.5); Mean Corpuscular Volume 87 fL (80-100); Mean Platelet Volume 10.5 fL (9.1-12.4); NEUTROPHILS ABSOLUTE AUTO 13.28 K/mm3 (1.96-9.15); NEUTROPHILS PERCENT AUTO 84 % (41-73); Platelet Count 173 K/mm3 (150-400); RDW Coefficient Variation 12.5 % (11.7-14.2); RDW Standard Deviation 40.2 fL (35.1-46.3); Red Blood Cell Count 3.68 M/mm3 (3.80-5.20); White Blood Cell Count 15.77 K/mm3 (4.00-11.30)
[2021-06-14 04:15] LABS: Albumin, Blood 1.7 g/dL (3.4-5.0); Anion Gap 9 mmol/L (6-16); Blood Urea Nitrogen 17 mg/dL (8-24); Bun/Creatinine Ratio 24.4 (12.0-20.0); CO2, Blood 23 mmol/L (21-32); Calcium, Blood 8.2 mg/dL (8.5-10.1); Chloride, Blood 103 mmol/L (98-108); Glomerular Filtration Rate >60 (60-); Glucose, Blood 113 mg/dL (70-99); Magnesium, Blood 1.8 mg/dL (1.6-2.4); Phosphorus, Blood 1.2 mg/dL (2.5-4.9); Potassium, Blood 3.1 mmol/L (3.5-5.5); Sodium, Blood 135 mmol/L (136-145)
--- NOTE | 2021-06-14 04:49 | NUR ---
SHIFT SUMMARY: PT HAS HAD RESTLESS NIGHT, REMAINS ALERT AND ORIENTED, BUT WAS TEARFUL AND UPSET BECAUSE SHE'S "TIRED OF BEING SICK." EMOTIONAL SUPPORT GIVEN, VSS OTHER THAN TEMP, T-MAX 101.7, TYLENOL GIVEN AND ICE PACK TO HELP REDUCE FEVER. MEDICATED TWICE THIS SHIFT WITH FENTANYL FOR PAIN, SEE MAR, WITH GOOD EFFECT. PEREZ PATENT AND DRAINING CLEAR YELLOW URINE, UOP >1200ML. LEFT UPPER ARM POWERGLIDE INTACT, AM LABS SENT AND RESULTS CALLED TO - K+3.1 AND PHOS 1.2. TOLERATING POFLUIDS WELL BUT NO APPETITE. ABLE TO TURN AND SHIFT IN BED BUT IS RELUCTANT DUE TO PAIN. BED LOCKED AND LOW, CALL ELKINS IN REACH. [place] ANGUIANO
--- NOTE | 2021-06-14 18:00 | NUR ---
SHIFT SUMMARY; ASSUMED CARE AT 0700. SLEEPY THROUGHOUT DAY BUT WAKES EASILY TO VERBAL STIMULI. A/A/OX4 WHEN AWAKE. REPOSITIONS SELF IN BED, ASSISTED TO BEDSIDE COMMODE WITH 2 PERSON ASSIST. PEREZ CATH IN PLACE DRAINING CLEAR YELLOW URINE TO GRAVITY. 0.45% NS INFUSING AT 125/HOUR, IV ABX PER EMAR DURING SHIFT. VSS, WILL CONTINUE TO MONITOR AND TREAT UNTIL CHANGE OF SHIFT.
--- NOTE | 2021-06-14 19:15 | NUR ---
ASSUMED CARE OF PT, REPORT RECEIVED. PT APPEARS TO BE SLEEPING, RESP EVEN AND REGULAR, SLIGHT BROW FURROWING IS NOTED, NO RESTLESSNESS OR AGITATION. LIGHTS CONTINUE OFF IN ROOM AND DOOR CLOSED.
--- NOTE | 2021-06-14 21:30 | NUR ---
PT ROUSES TO VERBAL STIMULI, ANSWERS "YES" WHEN ASKED IF HER COUGH STILL INCREASES HEAD PAIN AND PT APPEARS TO IMMEDIATELY RETURN TO SLEEP, OPENS EYES TO VERBAL STIMULI AGAIN, PUPILS ARE NOTED UNEQUAL, LEFT 4, RIGHT 3, BRISKLY REACTIVE BILAT. PT DOES NOT ANSWER ANY FURTHER QUESTIONS, DOES FOLLOW COMMANDS TO ASSESS BILAT ALL ROUND LOGGER STRENGTH WHICH IS NOTED STRONG AND EQUAL BILAT. DOES NOT FOLLOW ANY OTHER COMMANDS AT THIS TIME, TEMPORAL SCANNED TEMP AT FOREHEAD READS 100.3 HOWEVER PT FEELS MARKEDLY HOT TO THE TOUCH, SCANNED POSTERIOR NECK AND READS 106.3 AND 106.4, PEREZ TEMP PROBE IS CONFIRMED NONFUNCTIONAL AT THIS TIME, ICE PACKS ARE PLACED BILAT AXILLA AND GROIN, BLANKETS REMOVED, FAN ON HIGH IN PT'S DIRECTION, MA TYLENOL ADMIN AND RECTAL TEMP PROBE IS PLACED, CALL PLACED TO DR LSATER AND REVIEWED MENTATION AND PUPIL CHANGES, CURRENT TEMP, WELL MRI DONE AT 1000 THIS AM, HE STATES THAT HE WILL REVIEW THE PT'S CHART AND PLAN FOR COOLING BLANKET TO BE USED IF CURRENT INTERVENTIONS ARE INEFFECTIVE FOR TEMP CONTROL. WILL CONT TO MONITOR. SCATTERED SMALL PUSTULE SKIN LESIONS ARE NOW NOTED WELL.
--- NOTE | 2021-06-15 05:47 | NUR ---
PT REMAINS FEBRILE THROUGHOUT SHIFT HOWEVER TEMP IMPROVED TO 100.9 OF THIS TIME, LAST TYLENOL ADMIN AT 0401. MENTATION CHANGES, PUPIL SIZE DIFFERENCE, AND TEMP WERE DISCUSSED WITH DR SLATER, PLAN WAS FOR COOLING BLANKET IF ICE, FAN, AND TYLENOL WERE INEFFECTIVE. SPOKE WITH [employer] SERVICE MANAGER CARRIE GARDNER THIS AM AND ISOLATION WAS DC'D PER INFECTION CONTROL. PT MENTATION IMPROVED WITH CONTROL OF TEMP, SHE CONTINUES TO RATE HEADACHE 8/10 AND REPORTS THAT SHE DOES NOT FEEL LIKE SHE IS SLEEPING WELL.
[2021-06-15 12:09] LABS: HIV AB/P24 AG SCREEN Non Reactive (Non Reactive)
[2021-06-15 12:59] LABS: Source, Urine Catheter
[2021-06-15 13:03] LABS: Appearance, Urine Clear (Clear); Bilirubin, Urine Neg (Neg); Color, Urine Yellow (P-Yellow); Glucose Qualitative, Urine Neg (Neg); Ketones, Urine Neg (Neg); Leukocyte Esterase, Urine 1+ (Neg); Nitrite, Urine Neg (Neg); Protein, Urine 2+ (Neg); Urobilinogen, Urine NORM (Normal); pH, Urine 6.5 (5.0-8.0)
[2021-06-15 13:05] LABS: Blood, Urine 2+ (Neg)
[2021-06-15 13:11] LABS: Bacteria Few /hpf; Squamous Epithelial Cells Few /hpf (Few)
[2021-06-15 13:12] LABS: Amorphous Light (0-Heavy); Mucus Light (0-Heavy)
--- NOTE | 2021-06-15 13:35 | NUR ---
PT IS LESS RESPONSIVE THIS AFTERNOON. SHE IS ONLY ANSWERING WITH ONE WORD ANSWERS. TEMP IS CLIMBING. WAS GOING TO GIVE PO TYLENOL BUT PT IS TOO SLOW FOLLOWING COMMANDS TO FEEL COMFORTABLE WITH PO. GAVE TYLENOL SUPPOSITORY INSTEAD. ICE PACKS PLACED, FAN ON, AND NO COVERS ON PT. CALLED DR. ZAVALA AND UPDATED HIM. NEW ORDERS FOR BC'S, UA, AND CONSULT INFECTIOUS DISEASE. CALLED DR. TODD'S CONSULT LINE. HE WILL NOT BE IN UNTIL June. LET DR. ZAVALA KNOW THIS AND HE STATES [facility] HAS BEEN CONSULTED A COUPLE TIMES ON THIS PT.
--- NOTE | 2021-06-15 17:36 | NUR ---
PT TEMP DOWN TO 100 NOW. COOLING BLANKET WAS PLACED THIS AFTERNOON. PT IS MORE RESPONSIVE AND AROUSES EASILY FORM SLEEP. STILL ONE TO TWO WORD ANSWERS TO QUESTIONS BUT PT IS ABLE TO FOLLOW COMMANDS. NO SIGN OF DISTRESS. SEE PREVIOUS NOTES.
--- NOTE | 2021-06-15 19:40 | NUR ---
ASSUMED CARE OF PT, BEDSIDE REPORT RECEIVED. PT IS NOTED RESTING QUIETLY WITH EYES CLOSED, ROUSES EASILY TO VERBAL STIMULI, STATES THAT SHE IS IN [facility] [place], ANSWERS "I DON'T KNOW" WHEN ASKED TO PROVIDE THE DATE, SHE IS ABLE TO STATE THAT THE HOLIDAY THAT JUST PASSED WAS , PROVIDES THE YEAR 2019. SHE FOLLOWS DIRECTIONS TO TURN HERSELF IN BED AND PILLOW IS PLACED TO MAINTAIN POSITION ON RIGHT SIDE DECREASED SELF TURNS WERE NOTED BY OFFGOING RN, WILL CONTINUE TO MONITOR FOR INCREASED ALERTNESS AND ACTIVITY, CONTINUE TURNS EVERY 2 HOURS UNTIL PT RESUMES INDEPENDENTLY SELF REPOSITIONING. SHE COOPERATES WITH ORAL CARE HOWEVER VERY SENSITIVE GAG REFLEX IS NOTED WITH ATTEMPTS TO CLEAN PLAQUE FROM TONGUE, WILL CONTINUE FREQUENT ATTEMPTS AT ORAL CARE. PT IS AGREEABLE TO MORE ORAL CARE ATTEMPTS FOR SHORTER DURATIONS. SEE SHIFT ASSESSMENT FOR FURTHER.
[2021-06-16 03:41] LABS: BASOPHILS ABSOLUTE AUTO 0.06 K/mm3 (0.00-0.23); BASOPHILS PERCENT AUTO 0 % (0-2); EOSINOPHILS ABSOLUTE AUTO 0.09 K/mm3 (0.00-0.68); EOSINOPHILS PERCENT AUTO 0 % (0-6); Hematocrit 30.1 % (33.0-51.0); Hemoglobin 10.7 g/dL (11.5-16.0); IMMATURE GRAN ABSOLUTE AUTO 1.13 K/mm3 (0.00-0.10); IMMATURE GRAN PERCENT AUTO 5 % (0-1); LYMPHOCYTES ABSOLUTE AUTO 0.95 K/mm3 (0.84-5.20); LYMPHOCYTES PERCENT AUTO 4 % (21-46); MONOCYTES ABSOLUTE AUTO 1.09 K/mm3 (0.16-1.47); MONOCYTES PERCENT AUTO 4 % (4-13); Mean Corpuscular HGB 30.1 pg (26.0-34.0); Mean Corpuscular HGB Conc 35.5 g/dL (31.5-36.5); Mean Corpuscular Volume 85 fL (80-100); Mean Platelet Volume 11.4 fL (9.1-12.4); NEUTROPHILS ABSOLUTE AUTO 21.55 K/mm3 (1.96-9.15); NEUTROPHILS PERCENT AUTO 87 % (41-73); Platelet Count 113 K/mm3 (150-400); RDW Coefficient Variation 12.4 % (11.7-14.2); Red Blood Cell Count 3.55 M/mm3 (3.80-5.20); White Blood Cell Count 24.87 K/mm3 (4.00-11.30)
[2021-06-16 04:36] LABS: Alanine Aminotransfer (ALT/SGP 20 U/L (12-78); Albumin, Blood 1.3 g/dL (3.4-5.0); Albumin/Globulin Ratio 0.4 (0.8-1.8); Alk Phos 76 U/L (50-136); Anion Gap 8 mmol/L (6-16); Aspartate Aminotrans (AST/SGOT 17 U/L (12-37); Bilirubin, Total 0.4 mg/dL (0.1-1.0); Blood Urea Nitrogen 8 mg/dL (8-24); Bun/Creatinine Ratio 11.8 (12.0-20.0); CO2, Blood 25 mmol/L (21-32); Calcium, Blood 7.8 mg/dL (8.5-10.1); Chloride, Blood 92 mmol/L (98-108); Creatinine, Blood 0.68 mg/dL (0.40-1.00); Globulin, Blood 3.4 g/dL (2.2-4.0); Glomerular Filtration Rate >60 (60-); Glucose, Blood 80 mg/dL (70-99); Potassium, Blood 3.1 mmol/L (3.5-5.5); Sodium, Blood 125 mmol/L (136-145); Total Protein, Blood 4.7 g/dL (6.4-8.2)
--- NOTE | 2021-06-16 05:24 | NUR ---
PT RESTS QUIETLY THROUGHOUT SHIFT, TEMP AND ORIENTATION HAVE IMPROVED THROUGHOUT NOC HOWEVER PT CONTINUES TO APPEAR TO SLEEP WHEN UNDISTURBED. SHE DOES TURN HERSELF HOWEVER REQUIRES VERBAL PROMPTING. HEADACHE IS RATED "GOOD" PT DID COMPLAIN OF NAUSEA X 1 AND ZOFRAN ADMIN IV WITH GOOD CONTROL. DISCUSSED POTENTIAL ASPIRATION RISK WITH DR ZAVALA AT 2330 PT WAS LETHARGIC AT THAT TIME, POTASSIUM REPLACEMENT THAT WAS ORDERED FOR THAT TIME WAS CHANGED TO IV AND ADMINISTERED, PT TOLERATED WELL.
--- NOTE | 2021-06-16 11:41 | NUR ---
DR ZAVALA CAME TO SEE PT. DISCUSSED PLAN WITH HIM AND HE WAS AWARE THAT DR TODD IS UNAVAILABLE UNTIL JUNE 21. STATES THAT HE WAS GOING TO REVIEW TO SEE IF FURTHER TREATMENTS ARE AVAILABLE. MADE DR AWARE THAT PT COUGHED ON THIN LIQUIDS THIS AM SO SPEECH THERAPY EVAL WAS DONE. SPEECH ORDERED NPO. DISAGREED AND DID A BEDSIDE SWALLOW EVAL AND SAID TO DC SPEECH CONSULT AND TO GIVE PT PUREE FOOD AND THICKENED LIQUIDS. STATES TO GIVE ORAL MEDS THAT WERE MISSED THIS AM SINCE NO LONGER NPO.
--- NOTE | 2021-06-16 14:43 | NUR ---
ASSISTED PT TO COMMODE AND NOTED THAT STOOL WAS GREEN AND MUCOUSY IN TEXTURE. NIGHT RN REPORTED LIQUID STOOL. CALL TO DR ZAVALA AND ORDERS FOR CDIFF SAMPLE. SEWER SEPARATION DESIGNER AND PT'S FAMILY AWARE
--- NOTE | 2021-06-16 18:07 | NUR ---
SHIFT SUMMARY: PT HAS BEEN DROWSY ALL SHIFT. ROUSES EASILY, MINIMAL APPETITE TODAY. GAG REFLEX EASILY TRIGGERED WITH MEDS. TOLERATES BETTER IF MEDS ARE CRUSHED IN PUDDING. CONTINUING ABX FOR INFECTION. 2 PERSON ASSIST WITH TRANSFERS. AWAITING STOOL SAMPLE TO R/O CDIFF. NO ACUTE NEEDS OR CONCERNS.
[2021-06-17 08:44] LABS: BASOPHILS ABSOLUTE AUTO 0.07 K/mm3 (0.00-0.23); BASOPHILS PERCENT AUTO 0 % (0-2); EOSINOPHILS ABSOLUTE AUTO 0.04 K/mm3 (0.00-0.68); EOSINOPHILS PERCENT AUTO 0 % (0-6); Hematocrit 33.2 % (33.0-51.0); Hemoglobin 11.5 g/dL (11.5-16.0); IMMATURE GRAN ABSOLUTE AUTO 1.26 K/mm3 (0.00-0.10); IMMATURE GRAN PERCENT AUTO 4 % (0-1); LYMPHOCYTES ABSOLUTE AUTO 0.78 K/mm3 (0.84-5.20); LYMPHOCYTES PERCENT AUTO 3 % (21-46); MONOCYTES ABSOLUTE AUTO 1.09 K/mm3 (0.16-1.47); MONOCYTES PERCENT AUTO 4 % (4-13); Mean Corpuscular HGB 29.8 pg (26.0-34.0); Mean Corpuscular HGB Conc 34.6 g/dL (31.5-36.5); Mean Corpuscular Volume 86 fL (80-100); Mean Platelet Volume 11.9 fL (9.1-12.4); NEUTROPHILS ABSOLUTE AUTO 26.98 K/mm3 (1.96-9.15); NEUTROPHILS PERCENT AUTO 89 % (41-73); Platelet Count 164 K/mm3 (150-400); RDW Coefficient Variation 12.7 % (11.7-14.2); RDW Standard Deviation 39.9 fL (35.1-46.3); Red Blood Cell Count 3.86 M/mm3 (3.80-5.20); White Blood Cell Count 30.22 K/mm3 (4.00-11.30)
[2021-06-17 09:04] LABS: Alanine Aminotransfer (ALT/SGP 23 U/L (12-78); Albumin, Blood 1.4 g/dL (3.4-5.0); Albumin/Globulin Ratio 0.4 (0.8-1.8); Alk Phos 133 U/L (50-136); Anion Gap 11 mmol/L (6-16); Aspartate Aminotrans (AST/SGOT 19 U/L (12-37); Bilirubin, Total 0.4 mg/dL (0.1-1.0); Blood Urea Nitrogen 10 mg/dL (8-24); Bun/Creatinine Ratio 11.9 (12.0-20.0); CO2, Blood 21 mmol/L (21-32); Calcium, Blood 7.8 mg/dL (8.5-10.1); Chloride, Blood 90 mmol/L (98-108); Creatinine, Blood 0.84 mg/dL (0.40-1.00); Globulin, Blood 3.4 g/dL (2.2-4.0); Glomerular Filtration Rate >60 (60-); Glucose, Blood 109 mg/dL (70-99); Potassium, Blood 3.5 mmol/L (3.5-5.5); Sodium, Blood 122 mmol/L (136-145); Total Protein, Blood 4.8 g/dL (6.4-8.2)
--- NOTE | 2021-06-17 09:30 | NUR ---
ASSUMED CARE REPORT FROM ELSI IBRAHIM AT 0700. PT LETHARGIC, WHEN I ENTER ROOM, PT APPEARS TO BE SLEEPING c EYES OPEN. WAKES c VERBAL STIMULI. APPEARS TO FALL ASLEEP MULTIPLE TIMES DURING ASSESSMENT. ORIENTED TO SELF AND PLACE, KNOWS SHE LIVES c . UNAWARE OF DATE OR RECENT HOLIDAY. RETURNS TO SLEEP. SLOW ATTEMPTS TO FOLLOW COMMANDS. EXT DRAWN IN, C/O PAIN c EXTENTION OR ROM. OLIVER. GRIMACES c NECK MOVEMENT. LUNGS COARSE THROUGHOUT. ST ON MONITOR, RATE 90-110'S. BP STABLE. FEBRILE, RECTAL TEMP PLACED, 103.1 MAX, TYLENOL AND TORADOL GIVEN. SKIN HOT AND FLUSHED. PUSTULES INCREASED IN SIZE AND NUMBER SINCE I LAST TOOK CARE OF PT THREE DAYS AGO. GENERALIZED EDEMA. WEAK. UNABLE TO TAKE PO D/T ASPIRATION RISK. ABD ROUND, DISTENDED, HYPOACTIVE BT. INTERMITTANTLY TENDER TO PAIN. PEREZ PATENT, DRAINING TO GRAVITY. DR ZAVALA UPDATED ON PT CONDITION. REPEAT CULTURES DRAWN, LABS ORDERED. FLUIDS CHANGED TO NS c KCL. PLAN TO TRANSFER TO [facility] FOR ID. WILL CONTINUE TO MONITOR CLOSELY.
[2021-06-17 14:03] LABS: C DIFFICILE DNA NEGATIVE (Negative)
--- NOTE | 2021-06-17 17:47 | NUR ---
SHIFT SUMMARY PT NEURO STATUS IMPROVED DURING THIS SHIFT. AFTER TEMP STABILIZED, TMAX 103.4, PT MORE RESPONSIVE AND INTERACTIVE. ABLE TO STAY AWAKE DURING ASSESSMENT. FOLLOWS COMMANDS. DOES NOT C/O PAIN c CARE. DIURESED THIS SHIFT, 3300 ML CLEAR YELLOW URINE OUT. PEREZ PATENT, DRAINING TO GRAVITY. CT ABD COMPLETED, FLUID OVERLOAD. GENERALIZED EDEMA. NSR ON MONITOR, RATE 70'S. BP STABLE. PLAN TO TRANSFER TO [facility] WHEN BED IS AVAILABLE. WILL CONTINUE TO MONITOR UNTIL REPORT TO ONCOMING NURSE.
--- NOTE | 2021-06-17 20:30 | NUR ---
ASSUMED PT CARE AT 1915 PT SLEEPING, BUT AROUSABLE TO VERBAL STIMULI. ALERT TO SELF, SURROUNDINGS, AND FAMILY. CONFUSED TO TIME AND PLACE. APPEARS TO BE FORGETFUL AT TIMES. SLURRED SPEECH, BUT MOST LIKELY DUE TO DRY MOUTH. ORAL CARES AND MOISTURIZER APPLIED. PT NOTED TO HAVE A VERY WHITE COATED TONGUE. PT ABLE TO FOLLOW COMMANDS, BUT VERY WEAK WITH SLOW MOTOR RESPONSES. APPEARS TO HAVE EQUAL QUALITY CONTROL TECH BILATERALLY, NO FACIAL DROOP NOTED. NSR WITH HR 60'S; PROLONGED QT AT 480 MSEC. VSS, SEE FLOWSHEET. PEREZ CATHETER IS PATENT AND DRAINING CLEAR, YELLOW URINE TO GRAVITY. PT ABLE TO SHIFT WEIGHT SLIGHTLY IN BED; UNABLE TO MAKE MAJOR TURNS BY SELF D/T WEAKNESS. OFFERED PILLOW UNDER A SIDE AND PT DECLINED. CALL LIGHT IS WITHIN REACH AND PT IS ABLE TO MAKE HER NEEDS KNOWN. SEE SHIFT SUMMARY FOR FURTHER DETAILS.
--- NOTE | 2021-06-17 21:03 | NUR ---
CALL OUT TO PHYSICIAN PROLONGED QT INTERVAL NOTED AT 480 MSEC; NO NEW ORDERS, BUT TO MONITOR. DURING ASSESSMENT PT ALSO NOTED TO HAVE WHAT APPEARS TO BE ORAL THRUSH WITH WHITE COATING NOTED TO TONGUE; NEW ORDERS FOR NYSTATIN SWISH AND SPIT 4X/DAY X1 WEEK. ALSO ADDRESSED CONCERNED FOR NEWLY ORDERED DECADRON D/T PT'S UNDERLYING DX OF NOCARDIOSIS; DR. BUTLER STATED HE WOULD LOOK INTO IT.
--- NOTE | 2021-06-18 05:22 | NUR ---
END OF SHIFT SUMMARY NO SIGNIFICANT CHANGES THIS SHIFT. PT REMAINS ALERT AND ORIENTED AND ABLE TO MAKE HER BASIC NEEDS KNOWN. ASSISTED WITH MAJOR REPOSITIONING D/T GENERALIZED WEAKNESS. VSS, SEE FLOWSHEET. PT IS CURRENTLY SALINE LOCKED; MIDLINE PATENT TO LEFT UPPER ARM. PEREZ CATHETER IS PATENT AND DRAINING LARGE AMOUNTS OF CLEAR, YELLOW URINE TO GRAVITY. PT IS SWALLOWING MEDICATIONS WHOLE WITH THIN LIQUIDS WITHOUT ANY S/SX OF ASPIRATION. PT ALSO CONSUMING WHOLE GRAPES THAT LEFT AT BEDSIDE WITH NO S/SX OF ASPIRATION. DIET CHANGED FROM PUREE TO REGULAR. WILL CONTINUE TO MONITOR UNTIL REPORT IS HANDED OFF TO ONCOMING RN.
[2021-06-18 08:09] LABS: COMPLEMENT C3, SERUM 99 mg/dL (82-167); COMPLEMENT C4, SERUM 35 mg/dL (12-38)
--- NOTE | 2021-06-18 08:35 | NUR ---
INITIAL ASSESSMENT PATIENT ALERT AND ORIENTED X 4, THOUGH SLIGHTLY SLOW TO RESPOND. PATIENT AFEBRILE. PATIENT GIVEN PRN TYLENOL FOR COMPLAINTS OF 7/10 HEADACHE. LUNGS CLEAR THROUGHOUT. PATIENT SATTING 90% AND GREATER ON RA. PATIENT IN SR, HR IN THE 90S. SBP IN THE 130S. GI WNL. PEREZ DRAINING YELLOW COLORED URINE. SKIN COOL. MOUTH DRY. SCATTERED BRUISES, BLISTERS AND ABRASIONS NOTED. SITE TO L THIGH BLEEDING AND COVERED WITH BANDAGE (APPEARS TO BE NEEDLE INJECTION SITE). ANTIBIOTICS INFUSING. BED LOW, CALL LIGHT IN REACH. WILL CONTINUE TO MONITOR PATIENT FREQUENTLY THROUGHOUT SHIFT.
--- NOTE | 2021-06-18 10:00 | NUR ---
DR. NEGRON HERE TO SEE PATIENT. UPDATED ON PATIENT STATUS. ORDERS RECEIVED FOR PT/OT. NO OTHERS ORDERS RECEIVED AT THIS TIME.
[2021-06-18 11:39] LABS: Hematocrit 29.1 % (33.0-51.0); Hemoglobin 10.2 g/dL (11.5-16.0); Mean Corpuscular HGB 29.7 pg (26.0-34.0); Mean Corpuscular HGB Conc 35.1 g/dL (31.5-36.5); Mean Corpuscular Volume 85 fL (80-100); Mean Platelet Volume 11.6 fL (9.1-12.4); Platelet Count 227 K/mm3 (150-400); RDW Coefficient Variation 12.7 % (11.7-14.2); RDW Standard Deviation 38.6 fL (35.1-46.3); Red Blood Cell Count 3.43 M/mm3 (3.80-5.20)
[2021-06-18 11:40] LABS: Alanine Aminotransfer (ALT/SGP 19 U/L (12-78); Albumin, Blood 1.4 g/dL (3.4-5.0); Albumin/Globulin Ratio 0.4 (0.8-1.8); Alk Phos 117 U/L (50-136); Anion Gap 5 mmol/L (6-16); Aspartate Aminotrans (AST/SGOT 19 U/L (12-37); Bilirubin, Total 0.3 mg/dL (0.1-1.0); Blood Urea Nitrogen 15 mg/dL (8-24); Bun/Creatinine Ratio 21.7 (12.0-20.0); CO2, Blood 24 mmol/L (21-32); Chloride, Blood 98 mmol/L (98-108); Creatinine, Blood 0.69 mg/dL (0.40-1.00); Globulin, Blood 3.5 g/dL (2.2-4.0); Glomerular Filtration Rate >60 (60-); Glucose, Blood 165 mg/dL (70-99); Potassium, Blood 3.7 mmol/L (3.5-5.5); Sodium, Blood 127 mmol/L (136-145); Total Protein, Blood 4.9 g/dL (6.4-8.2)
[2021-06-18 12:29] LABS: White Blood Cell Count 21.73 K/mm3 (4.00-11.30)
[2021-06-18 12:37] LABS: BASOPHILS PERCENT MAN 0 % (0-2); EOSINOPHILS PERCENT MAN 0 % (0-6); LYMPHOCYTES ABSOLUTE MAN 0.86 K/mm3 (0.84-5.20); LYMPHOCYTES PERCENT MAN 4 % (21-46); MONOCYTES ABSOLUTE MAN 0.21 K/mm3 (0.16-1.47); MONOCYTES PERCENT MAN 1 % (4-13); MYELOCYTE ABSOLUTE MAN 0.21 K/mm3 (0.00-0.00); MYELOCYTE PERCENT MAN 1 % (0-0); NEUTROPHILS ABSOLUTE MAN 20.42 K/mm3 (1.96-9.15); SEG NEUTROPHILS PERCENT MAN 94 % (41-73); TOTAL CELLS COUNTED 100
--- NOTE | 2021-06-18 13:00 | NUR ---
PATIENT AFEBRILE. PATIENT HAS NAPPED ON AND OFF. PATIENT DIFFICULT TO WAKE ONCE SLEEPING. HR IN THE 80S. SBP IN THE 90S. NO OTHER CHANGES TO NOTE ON AT THIS TIME. WILL CONTINUE TO MONITOR.
--- NOTE | 2021-06-18 17:30 | NUR ---
PATIENT AFEBRILE. HR IN THE 70S. SBP IN THE 130S. PATIENT REPORTS THAT GI COCKTAIL HELPED HER EARLIER HEARTBURN. PATIENT HAD SMALL, BROWN, LIQUID BM ON BSC WITH HELP OF NURSE AND PHYSICAL THERAPY. PATIENT'S FACE FLUSHED AFTER PT. MARY AND MEPILEX DRESSING PLACED TO IV/ NEEDLE SITE ON L THIGH. NO OTHER ACUTE CHANGES TO NOTE ON AT THIS TIME. PATIENT SITTING UP EATING DINNER IN BED. WILL CONTINUE TO MONITOR.
--- NOTE | 2021-06-18 18:04 | NUR ---
SHIFT SUMMARY PATIENT REMAINED ALERT AND ORIENTED X 4. PATIENT NAPPED ON AND OFF THROUGHOUT SHIFT. PATIENT SLEEPS VERY SOUNDLY AND IS DIFFICULT TO WAKE. PHYSICAL THERAPY WORKED WITH PATIENT AND PAT[place] [facility] [place] 2 PERSON MAX ASSIST. PATIENT HAS REMAINED AFEBRILE. PATIENT GIVEN PRN TYLENOL FOR COMPLAINT OF HEADACHE AND GI COCKTAIL FOR COMPLAINT OF HEART BURN THIS SHIFT; PATIENT REPORTED RELIEF AFTER EACH MEDICATION. PATIENT HAS REMAINED SATTING 90% AND GREATER ON RA. PATIENT DOES SNORE WITH SLEEP, HOWEVER OXYGEN DOES NOT DROP. PATIENT REMAINED IN SR, HR 70S TO 90S. SBP 90S TO 130S. PATIENT HAD MILD APPETITE THIS SHIFT. PATIENT HAD SMALL, BROWN, LIQUID STOOL THIS SHIFT. PEREZ DRAINED 1950 MLS OF YELLOW COLORED URINE. NO CHANGES TO SKIN NOTED. NEEDLE INSERTION SITE ON L THIGH CONTINUES TO BLEED; LAST DRESSING CHANGE MARY AND MEPILEX PLACED. NS INFUSING TKO. CAME TO VISIT THIS SHIFT. PATIENT CONTENT AT THIS TIME WITH NO COMPLAINTS. BED LOW, CALL LIGHT IN REACH. REPORT WILL BE GIVEN TO ONCOMING GORE CUTTER NURSE SHORTLY.
[2021-06-18 20:09] LABS: ANTI-DSDNA ANTIBODIES 18 IU/mL (0-9); RNP ANTIBODIES 0.2 AI (0.0-0.9); SJOGREN'S ANTI-SS-A <0.2 AI (0.0-0.9); SJOGREN'S ANTI-SS-B <0.2 AI (0.0-0.9); SMITH ANTIBODIES <0.2 AI (0.0-0.9)
--- NOTE | 2021-06-18 21:00 | NUR ---
PT IS ALERT WITH SOME NOTED CONFUSION. PT STATED THAT HER VISION HAS BEEN "OFF" SINCE ILLNESS STARTED. PT STS SHE THOUGHT STAFF WAS DRESSED UP FOR THE HOLIDAYS WITH BRIGHT RED HAIR AND ALSO COMMENTED THAT THIS NURSE HAD GIVEN HER ORAL MEDS WHILE IN THE ROOM. PT DENIES CHEST PAIN OR ANY GENERAL PAIN. DENIES SOB. PT WAS REPOSITIONED AND WAS WEAK WHEN TURNING. CALL LIGHT IS WITHIN REACH. WILL CONTINUE TO MONITOR.
--- NOTE | 2021-06-18 23:44 | NUR ---
PT IS ALERT. DENIES CHEST PAIN AND SOB. REFUSES REPOSITION STS SHE IS COMFORTABLE. CALL LIGHT IS WITHIN REACH. WILL CONTINUE TO MONITOR.
[2021-06-19 05:02] LABS: BASOPHILS ABSOLUTE AUTO 0.11 K/mm3 (0.00-0.23); BASOPHILS PERCENT AUTO 1 % (0-2); EOSINOPHILS PERCENT AUTO 0 % (0-6); Hematocrit 30.3 % (33.0-51.0); Hemoglobin 10.6 g/dL (11.5-16.0); IMMATURE GRAN ABSOLUTE AUTO 1.03 K/mm3 (0.00-0.10); IMMATURE GRAN PERCENT AUTO 5 % (0-1); LYMPHOCYTES ABSOLUTE AUTO 1.46 K/mm3 (0.84-5.20); LYMPHOCYTES PERCENT AUTO 7 % (21-46); MONOCYTES PERCENT AUTO 6 % (4-13); Mean Corpuscular HGB 29.7 pg (26.0-34.0); Mean Corpuscular Volume 85 fL (80-100); NEUTROPHILS ABSOLUTE AUTO 18.06 K/mm3 (1.96-9.15); NEUTROPHILS PERCENT AUTO 83 % (41-73); Platelet Count 332 K/mm3 (150-400); RDW Standard Deviation 40.4 fL (35.1-46.3); Red Blood Cell Count 3.57 M/mm3 (3.80-5.20); White Blood Cell Count 21.86 K/mm3 (4.00-11.30)
--- NOTE | 2021-06-19 05:22 | NUR ---
SHIFT SUMMARY PT IS ALERT AND ORIENTED AT THIS TIME. HAD SOME NOTED CONFUSION LAST NIGHT. DENIES CHEST PAIN OR SOB. DENIES GENERAL PAIN JUST STIFFNESS AND HAS NOT NEEDED ANY PAIN MEDS T/O THE NIGHT. PT IS ON ROOM AIR WITH SATS ABOVE 92%. HAS BEEN NSR IN 80'S. PT HAS BEEN ABLE TO HELP RESPOSITION SELF AND IS ABLE TO USE CALL LIGHT APPROPRIETLY. NEEDLESTICK ON LEFT THIGH REPORTED BY PT HAS NO SIGNS OF BLEEDING AND BANDAGING IS CDI. CALL LIGHT IS WITHIN REACH.
[2021-06-19 05:36] LABS: Alanine Aminotransfer (ALT/SGP 24 U/L (12-78); Albumin, Blood 1.5 g/dL (3.4-5.0); Albumin/Globulin Ratio 0.4 (0.8-1.8); Alk Phos 127 U/L (50-136); Anion Gap 7 mmol/L (6-16); Aspartate Aminotrans (AST/SGOT 24 U/L (12-37); Bilirubin, Total 0.2 mg/dL (0.1-1.0); Blood Urea Nitrogen 14 mg/dL (8-24); Bun/Creatinine Ratio 20.3 (12.0-20.0); CO2, Blood 27 mmol/L (21-32); Calcium, Blood 8.5 mg/dL (8.5-10.1); Chloride, Blood 103 mmol/L (98-108); Creatinine, Blood 0.69 mg/dL (0.40-1.00); Globulin, Blood 3.6 g/dL (2.2-4.0); Glomerular Filtration Rate >60 (60-); Glucose, Blood 95 mg/dL (70-99); Potassium, Blood 4.2 mmol/L (3.5-5.5); Total Protein, Blood 5.1 g/dL (6.4-8.2)
[2021-06-19 05:54] LABS: Sodium, Blood 137 mmol/L (136-145)
--- NOTE | 2021-06-19 09:21 | NUR ---
AM NOTE... ASSUMED CARE OF PT AT 0700, THE PT IS A&Ox3 WITH SOME FORGETFULNESS REPORTED BY NOC SHIFT RN. THE PT'S VS STABLE AT THIS TIME. SHE IS IN SR IN THE 90'S, TRACE EDEMA NOTED TO HER BLE, BUE AND TRUNK. THE PT IS ON RA WITH O2 SATS >90% L/S CLEAR T/O. BT PRESENT AND NORMOACTIVE, ABD IS SOFT AND NONTENDER TO PALP. THE PT'S PEREZ IS PATENT AND DRAINING TO GRAVITY. THE PT WAS SITTING UP IN HER BED EATING BREAKFAST, NO SWALLOWING ISSUES NOTED. CALL LIGHT IN REACH WILL CONTINUE TO MONITOR.
--- NOTE | 2021-06-19 15:25 | NUR ---
PT UPDATE.... THE PT WORKED WITH PT/OT THIS AM AND WAS ABLE TO STAND USING THE WALKER AND GAIT BELT, THIS RN AND THE PCT WERE ABLE TO GET THE PT UP TO THE RECLINER CHAIR WITH MOD ASSIST. THE PT WAS UP IN THE CHAIR APROX 30 MINS THEN REQUESTED TO GO BACK TO BED. THE PT WAS HELPED BACK TO BED WITH 2 STAFF MOD ASSIST, THE PT WAS ABLE TO TAKE SMALL STEPS AND TURN TO SIT ON THE BED. THE PT STARTED TO C/O OF FEELING LIKE SHE IS STARTING TO GET A VAGINAL YEAST INFECTION, THIS WAS REPORTED TO THE PROVIDER, NEW ORDER OBTAINE FOR FLUCONAZOLE THE PT'S PEREZ WAS D/C'd PER PROVIDER'S ORDERS, THE PT C/O OF NOT WANTING THE PEREZ OUT STATING "I DON'T KNOW HOW I WILL BE ABLE TO PEE IF YOU TAKE IT OUT" THE PT WAS EDUCATED ON THE RISKS OF CAUTIs AND THE BENEFITS OF MOBILITY DURING RECOVERY FROM ILLNESS. THE PT VERBALIZED HER UNDERSTANDING BUT THEN STATED "BUT I'M TO TIRED TO USE THE COMMODE EVERY TIME I HAVE TO PEE" THIS RN EDUCATED THE PT ON THE USE OF THE BED FRANCO IF SHE DID NOT FEEL ABLE TO GET UP AND USE THE BCS. THE PT THEN STATED "WELL I GUESS I'LL JUST PISS ON MYSELF THEN." CALL LIGHT IN REACH WILL CONTINUE TO MONITOR.
--- NOTE | 2021-06-19 18:35 | NUR ---
SHIFT SUMMARY... NO ACUTE NEGATIVE CHANGES NOTED THIS SHIFT. THE PT'S VS HAVE BEEN STABLE, THE PT HAS BEEN AFEBRILE T/O THIS SHIFT. THE PT'S PEREZ WAS D/C'd THIS AFTERNOON, THE PT HAS VOIDED TWICE SINCE IT'S REMOVAL. THE PT HAS BEEN ABLE TO GET UP TO THE BSC WITH 2P ASSIST W/FWW AND GAITBELT. THE PT'S WAS AT THE BEDSIDE FOR VISITING HOURS. THE PLAN TO TRANSFER THE PT TO [facility] HAS CHANGED D/T THE PT'S IMPROVED CONDITION. CALL LIGHT IN REACH WILL CONTINUE TO MONITOR UNTIL REPORT IS GIVEN TO ONCOMING RN.
--- NOTE | 2021-06-19 19:00 | NUR ---
ASSUMED CARE ASSUMED CARE OF PATIENT. SLEEPING WHEN UNDISTURBED. ROUSES TO VERBAL STIMULI. ORIENTED TO SELF, PLACE, AND EVENTS. UNSURE OF DATE/TIME. SLOW VERBAL RESPONSE NOTED. MOVES ALL EXTREMITIES WEAKLY AND IS ABLE TO REPOSITION SELF IN BED SLIGHTLY. C/O HEADACHE AND INTERMITTENT MILD NAUSEA. PLASTIC DOLLS MOLD FILLER EQUAL BILATERALLY. LEFT PUPIL 4.5-5MM, RIGHT PUPIL 4MM. BOTH ARE BRISK. MONITOR SHOWS NSR, RATE 80s. SEE SHIFT ASSESSMENT FOR FULL ASSESSMENT.
[2021-06-20 04:48] LABS: BASOPHILS ABSOLUTE AUTO 0.07 K/mm3 (0.00-0.23); BASOPHILS PERCENT AUTO 0 % (0-2); EOSINOPHILS PERCENT AUTO 0 % (0-6); Hemoglobin 10.7 g/dL (11.5-16.0); IMMATURE GRAN ABSOLUTE AUTO 0.67 K/mm3 (0.00-0.10); IMMATURE GRAN PERCENT AUTO 3 % (0-1); LYMPHOCYTES PERCENT AUTO 8 % (21-46); MONOCYTES ABSOLUTE AUTO 1.55 K/mm3 (0.16-1.47); MONOCYTES PERCENT AUTO 7 % (4-13); Mean Corpuscular HGB 29.2 pg (26.0-34.0); Mean Corpuscular HGB Conc 33.4 g/dL (31.5-36.5); Mean Corpuscular Volume 87 fL (80-100); NEUTROPHILS ABSOLUTE AUTO 18.06 K/mm3 (1.96-9.15); NEUTROPHILS PERCENT AUTO 82 % (41-73); Platelet Count 378 K/mm3 (150-400); RDW Coefficient Variation 13.2 % (11.7-14.2); RDW Standard Deviation 42.7 fL (35.1-46.3); Red Blood Cell Count 3.66 M/mm3 (3.80-5.20); White Blood Cell Count 22.15 K/mm3 (4.00-11.30)
[2021-06-20 05:52] LABS: Alanine Aminotransfer (ALT/SGP 39 U/L (12-78); Albumin, Blood 1.9 g/dL (3.4-5.0); Albumin/Globulin Ratio 0.6 (0.8-1.8); Alk Phos 276 U/L (50-136); Anion Gap 8 mmol/L (6-16); Aspartate Aminotrans (AST/SGOT 41 U/L (12-37); Bilirubin, Total 0.4 mg/dL (0.1-1.0); Blood Urea Nitrogen 14 mg/dL (8-24); Bun/Creatinine Ratio 16.9 (12.0-20.0); CO2, Blood 26 mmol/L (21-32); Calcium, Blood 8.4 mg/dL (8.5-10.1); Chloride, Blood 97 mmol/L (98-108); Creatinine, Blood 0.83 mg/dL (0.40-1.00); Globulin, Blood 3.3 g/dL (2.2-4.0); Glomerular Filtration Rate >60 (60-); Glucose, Blood 70 mg/dL (70-99); Potassium, Blood 5.2 mmol/L (3.5-5.5); Sodium, Blood 131 mmol/L (136-145); Total Protein, Blood 5.2 g/dL (6.4-8.2)
--- NOTE | 2021-06-20 06:00 | NUR ---
SHIFT SUMMARY NO ACUTE CHANGES. SLEPT WHEN UNDISTURBED. ROUSES TO VERBAL STIMULI. CONTINUED WITH C/O 03/28 HEADACHE T/O NIGHT WITH MINIMAL RELIEF FROM ORDERED MEDICATIONS. MEDICATED WITH TYLENOL 1GM PO X 1, ROXICODONE 5MG PO X 1, AND FENTANYL 25MCG IV X 1 FOR PAIN. NO NEURO CHANGES NOTED. LEFT PUPIL CONTINUES TO BE APPROXIMATELY 1MM LARGER THAN RIGHT. BOTH ARE BRISK AND EQUALLY REACTIVE. PT WAS UP TO BSC X 1- MODERATE 2 PERSON ASSIST NEEDED D/T WEAKNESS. VOIDED WITHOUT DIFFICULTY. C/O INTERMITTENT NAUSEA, BUT DENIED NEED FOR ANTI-EMETIC. VSS. WILL REPORT TO ONCOMING RN WHEN AVAILABLE.
--- NOTE | 2021-06-20 09:21 | NUR ---
AM NOTE... ASSUMED CARE OF PT AT 0700. UPON ASSESSMENT THE PT IS VERY DIFFERENT THAN YESTERDAY, THE PT IS VERY LETHARGIC, UNABLE TO KEEP HER EYES OPEN, THE PT'S LEFT PUPIL IS APROX 1MM > THAN THE RIGHT AT 4-5MM THE RIGHT PUPIL IS 3MM. PRIOR TO THIS RN WAKING THE PT SHE WAS LAYING STIFFLY ON HER BACK HER EYES WERE SLIGHTLY OPEN AND THE LEFT EYE WAS ROLLING UP INTO HER HEAD WHILE THE RIGHT EYE WAS STRAIGHT FORWARD. THE PT WAS VERY WARM TO THE TOUCH, FIRST TEMP WAS 101.9. THE PT'S FIRMWARE ENGINEER ARE WEAK BUT EQUAL, THE PT'S LEGS ARE MUCH MORE WEAK THAN THEY WERE YESTERDAY. THE PT'S ARMS AND LEGS ARE ALSO NOTED TO BE TREMULOUS, THIS WAS NOT PRESENT YESTERDAY. PROVIDER WAS CALLED AND ORDERS OBTAINED FOR A STAT HEAD CT AND BLOOD CULTURES. WILL CONTINUE TO MONITOR.
--- NOTE | 2021-06-20 10:30 | NUR ---
PT UPDATE... TEMP PEREZ PLACED TO ENSURE ACCURATE TEMPS, THE PT'S PEREZ DRAINED 1600MLS OF CLEAR LIGHT YELLOW URINE. UA SENT TO THE LAB. THE PT CONTINUES TO BE LETHARGIC WILL OPEN HER EYES TO LOUD VERBAL STIMULI BUT THEN FALLS RIGHT BACK TO SLEEP. DR. NEGRON AT THE BEDSIDE TO ASSESS THE PT, PLAN IS TO ATTEMPT A TRANSFER TO [facility] AGAIN. WILL CONTINUE TO MONITOR.
[2021-06-20 10:32] LABS: Source, Urine Catheter
[2021-06-20 10:37] LABS: Appearance, Urine Clear (Clear); Bilirubin, Urine Neg (Neg); Blood, Urine Neg (Neg); Color, Urine Yellow (P-Yellow); Glucose Qualitative, Urine Neg (Neg); Ketones, Urine Neg (Neg); Leukocyte Esterase, Urine Neg (Neg); Nitrite, Urine Neg (Neg); Protein, Urine Neg (Neg); Specific Gravity, Urine 1.015 (1.003-1.022); Urobilinogen, Urine NORM (Normal)
--- NOTE | 2021-06-20 19:24 | NUR ---
SHIFT SUMMARY.... THE PT CONTINUES TO BE LETHARGIC, SHE WILL OPEN HER EYES AND ANSWER SIMPLE QUESTIONS BUT FALLS BACK ASLEEP VERY QUICKLY. THE PT HAS BEEN MEDICATED SEVERAL TIMES THIS SHIFT WITH SD TYLENOL FOR TEMPS. THE PT IS MORE STIFF THIS EVENING THAN SHE WAS AT THE START OF THIS SHIFT, SCLERAL EDEMA IS NOTED IN BOTH EYES. THE PT HAS 3+ PITTING EDEMA TO HER BLE. THE PT'S VS HAVE BEEN STABLE T/O THIS SHIFT, SHE CONTINUES TO BE ON RA WITH O2 SATS >90% L/S CLEAR T/O. THE PT HAD A MED LOOSE BROWN STOOL THIS AFTERNOON. TEMP PEREZ DRAINED 3575 MLS OF CLEAR LIGHT YELLOW URINE. A DOBHOFF WAS PLACED, PLACEMENT VERIFIED BY XRAY. THE PT DID NOT TOLERATE THIS PROCEDURE WELL. THE PT'S WAS AT THE BEDSIDE, HE WAS UPDATED ON THE PLAN OF CARE. DR. MCCOLLUM WAS CONSULTED BY DR. NEGRON D/T THE CONTINUED DECLINE IN THE PT'S CONDITION. THE PT WAS STARTED ON AMIKACIN, THIS WAS GIVEN PER ORDERS. THE PLAN IS TO TRANSFER THE PT UP TO [facility] ONCE A BED IS AVAILABLE. CALL LIGHT IN REACH WILL CONTINUE TO MONITOR UNTIL REPORT IS GIVEN TO ONCOMING RN.
--- NOTE | 2021-06-20 20:27 | NUR ---
ASSUMED PT CARE FROM [place] [facility]O PT SLEEPING IN BED, BUT EASILY AROUSABLE TO VERBAL STIMULI; ALERT AND ORIENTED X4; SLOW TO RESPOND WITH SOMEWHAT OF A SLURRED SPEECH, BUT NO FACIAL DROOP OR ONE SIDED DEFICITS NOTED. PT DOES HAVE UNEQUAL PUPILS, BUT THIS IS BASELINE PER PT D/T CATARACT SURGERY TO RIGHT EYE; BOTH ARE RESPONSIVE TO LIGHT. DOBHOFF PLACED TODAY FOR MED ADMINISTRATION D/T ALTERED MENTATION EARLIER THIS SHIFT. CHANGED ORDER OF POTASSIUM FROM PILL FORM TO LIQUID FORM; HOWEVER, WILL HOLD THIS EVENING D/T THIS AM'S POTASSIUM OF 5.1; WILL REASSESS MORNING LABS AND HAVE DAY SHIFT FOLLOW UP WITH PROVIDER ON WHETHER OR NOT TO CONTINUE POTASSIUM. PT WAS FINISHING UP DOSE OF ANTIBIOTICS VIA MIDLINE TO LEFT UPPER ARM; LABS DRAWN SHORTLY AFTER WELL GLUCOSE OBTAINED D/T AM GLUCOSE OF 70 NOTED ON LABS; RESULTS OF 85. PT IS CURRENTLY SALINE LOCKED; HOWEVER, WILL START NS AT 50MLS/HR PER ORDERS. PEREZ CATHETER IS PATENT AND DRAINING LARGE QUANTITIES OF CLEAR YELLOW URINE TO GRAVITY. PT DID HAVE ONE MEDIUM LOOSE BM. PT REQUIRES ASSISTANCE WITH MAJOR TURNS D/T GENERALIZED WEAKNESS. SHE IS ALSO NOTED TO BE VERY STIFF. CALL LIGHT IS WITHIN REACH AND PT IS ABLE TO DEMONSTRATE APPROPRIATE USE. SEE SHIFT SUMMARY FOR FURTHER DETAILS.
[2021-06-21 04:13] LABS: BASOPHILS ABSOLUTE AUTO 0.06 K/mm3 (0.00-0.23); BASOPHILS PERCENT AUTO 0 % (0-2); EOSINOPHILS ABSOLUTE AUTO 0.03 K/mm3 (0.00-0.68); EOSINOPHILS PERCENT AUTO 0 % (0-6); Hematocrit 31.8 % (33.0-51.0); Hemoglobin 10.8 g/dL (11.5-16.0); IMMATURE GRAN ABSOLUTE AUTO 0.87 K/mm3 (0.00-0.10); IMMATURE GRAN PERCENT AUTO 4 % (0-1); LYMPHOCYTES ABSOLUTE AUTO 1.65 K/mm3 (0.84-5.20); LYMPHOCYTES PERCENT AUTO 7 % (21-46); MONOCYTES ABSOLUTE AUTO 1.23 K/mm3 (0.16-1.47); MONOCYTES PERCENT AUTO 5 % (4-13); Mean Corpuscular HGB 29.5 pg (26.0-34.0); Mean Corpuscular Volume 87 fL (80-100); Mean Platelet Volume 9.5 fL (9.1-12.4); NEUTROPHILS ABSOLUTE AUTO 19.68 K/mm3 (1.96-9.15); NEUTROPHILS PERCENT AUTO 84 % (41-73); Platelet Count 266 K/mm3 (150-400); RDW Coefficient Variation 13.3 % (11.7-14.2); RDW Standard Deviation 42.1 fL (35.1-46.3); Red Blood Cell Count 3.66 M/mm3 (3.80-5.20); White Blood Cell Count 23.52 K/mm3 (4.00-11.30)
[2021-06-21 04:33] LABS: Alanine Aminotransfer (ALT/SGP 31 U/L (12-78); Albumin/Globulin Ratio 0.5 (0.8-1.8); Alk Phos 218 U/L (50-136); Anion Gap 7 mmol/L (6-16); Aspartate Aminotrans (AST/SGOT 20 U/L (12-37); Bilirubin, Total 0.6 mg/dL (0.1-1.0); Blood Urea Nitrogen 11 mg/dL (8-24); Bun/Creatinine Ratio 14.6 (12.0-20.0); CO2, Blood 25 mmol/L (21-32); Calcium, Blood 8.7 mg/dL (8.5-10.1); Chloride, Blood 94 mmol/L (98-108); Creatinine, Blood 0.75 mg/dL (0.40-1.00); Globulin, Blood 4.1 g/dL (2.2-4.0); Glomerular Filtration Rate >60 (60-); Glucose, Blood 90 mg/dL (70-99); Potassium, Blood 4.7 mmol/L (3.5-5.5); Sodium, Blood 126 mmol/L (136-145); Total Protein, Blood 6.1 g/dL (6.4-8.2)
--- NOTE | 2021-06-21 05:58 | NUR ---
END OF SHIFT SUMMARY PT HAS REMAINED ALERT AND ORIENTED MOST OF THE SHIFT UNTIL SHE SPIKED A FEVER AND SHE BECAME PROGRESSIVELY MORE CONFUSED AND DISORIENTED. LOW GRADE FEVER STARTED AROUND 0300 AND HAS SINCE CLIMBED TO A MAX OF 101.5; PT HAS BEEN MEDICATED WITH TYLENOL PER ORDERS DOWN DOBHOFF. PT CONTINUES WITH NS AT 50MLS/HR VIA MIDLINE TO JEAN; ATTEMPTED ANOTHER POWERGLIDE TO RIGHT UPPER ARM WITHOUT SUCCESS. LUNG SOUNDS REMAIN WITH CRACKLES TO BASES; ON ROOM AIR. PT HAD TWO EPISODES OF EMESIS THIS SHIFT WITH APPROX 100CC OUT OF GREEN BILE NOTED; PT MEDICATED WITH ZOFRAN AT THIS TIME WITH NO FURTHER EVENTS OF NAUSEA. PT REMAINS IN NSR WITH HR 80'S; STABLE BP'S, SEE FLOWSHEET. TEMP PEREZ CATHETER CONTINUES TO DRAIN MODERATE AMOUNTS OF CLEAR YELLOW URINE. WILL CONTINUE TO MONITOR UNTIL REPORT IS HANDED OFF TO ONCOMING RN.
--- NOTE | 2021-06-21 11:38 | NUR ---
ASSUMED CARE PATIENT ORIENTED x3. VITAL SIGNS STABLE. LEFT PUPIL LARGER THAN RIGHT, BUT BOTH ARE REACTIVE TO LIGHT. CRACKLES OBSERVED IN LEFT LUNG LOBES. PEREZ IS PRESENT. PATIENT RESTRICTED TO BEDREST AT THIS TIME. LAST BOWEL MOVEMENT 06-21-21 AT 1000. STOOLS LOOSE AND BROWN. PATIENT DENIES PAIN. BOWEL TONES NORMAL. SCATTERED PUSTULES OBSERVED. PATIENT DEMONSTRATES WEAKNESS IN ALL EXTREMETIES. DOBHOFF PRESENT AND FLUSHES, MARKING AT 57. PATIENT WAKES EASILY BUT FALLS ASLEEP QUICKLY IN ABSENCE OF STIMULATION. TEMPERATURE 98.4 AT START OF SHIFT. CURRENT TEMPERATURE 99.3. WILL CONTINUE TO MONITOR.
--- NOTE | 2021-06-21 14:26 | NUR ---
PT TRANSFER.... PT TRANSFER TO MEDICAL FLOOR, REPORT CALLED TO MED FLOOR RN. THE PT'S VS STABLE. ALL OF PT'S BELONGINGS PACKED AND SENT WITH THE PT. THE PT'S DEVON WAS CALLED BUT HE DID NOT ANSWER, A VOICEMAIL WAS LEFT WITH A UPDATE OF THE PT'S TRANSFER AND CONDITION.
--- NOTE | 2021-06-21 16:30 | NUR ---
LATE ENTRY 1430 PT ARRIVED TO UNIT FROM ICU 5. REPORT RECIEVED FROM CLINT IBRAHIM. PT AWAKE AND ABLE TO ANSWER QUESTIONS BUT LETHARGIC. PT ORIENTED TO ROOM, CALL LIGHT. BED IN LOW POSITION, BED ALARM ON. PT DENIED ANY CONCERNS OR NEEDS. RESTARTED IV FLUIDS NS AT 50 ML/HOUR. VSWNL, NO SIGNS OF DISTRESS OR LABORED BREATHING.
--- NOTE | 2021-06-21 18:55 | NUR ---
SHIFT SUMMARY: PT LETHARGIC TODAY, ABLE TO AWAKE AND SHE DOES RESPOND TO QUESTIONS BUT FALLS RIGHT ASLEEP. DINNER HELD DUE TO LETHARGY. VS WNL AT THIS TIME. NSR ON TELE. NO SIGNS OF PAIN/DISTRESS.
[2021-06-22 05:45] LABS: BASOPHILS ABSOLUTE AUTO 0.04 K/mm3 (0.00-0.23); BASOPHILS PERCENT AUTO 0 % (0-2); EOSINOPHILS ABSOLUTE AUTO 0.03 K/mm3 (0.00-0.68); EOSINOPHILS PERCENT AUTO 0 % (0-6); Hemoglobin 10.3 g/dL (11.5-16.0); IMMATURE GRAN ABSOLUTE AUTO 0.51 K/mm3 (0.00-0.10); IMMATURE GRAN PERCENT AUTO 4 % (0-1); LYMPHOCYTES ABSOLUTE AUTO 1.41 K/mm3 (0.84-5.20); LYMPHOCYTES PERCENT AUTO 12 % (21-46); MONOCYTES ABSOLUTE AUTO 0.88 K/mm3 (0.16-1.47); MONOCYTES PERCENT AUTO 7 % (4-13); Mean Corpuscular HGB 29.2 pg (26.0-34.0); Mean Corpuscular HGB Conc 33.2 g/dL (31.5-36.5); Mean Corpuscular Volume 88 fL (80-100); Mean Platelet Volume 9.6 fL (9.1-12.4); NEUTROPHILS ABSOLUTE AUTO 9.07 K/mm3 (1.96-9.15); NEUTROPHILS PERCENT AUTO 76 % (41-73); Platelet Count 254 K/mm3 (150-400); RDW Coefficient Variation 13.6 % (11.7-14.2); RDW Standard Deviation 42.8 fL (35.1-46.3); Red Blood Cell Count 3.53 M/mm3 (3.80-5.20); White Blood Cell Count 11.94 K/mm3 (4.00-11.30)
--- NOTE | 2021-06-22 06:17 | NUR ---
SHIFT SUMMARY PATIENT ALTERNATING BETWEEN BEING LETHARGIC AND MINIMALLY RESPONSIVE AND BEING ALERT AND ORIENTED X4. HAD NO COMPLAINTS OF PAIN OR SHORTNESS OF BREATH. NO ACUTE ISSUES NOTED OVERNIGHT. BED IN LOWEST POSITION WITH WHEELS LOCKED AND ALARM ON. CALL LIGHT WITHIN REACH. REPORT GIVEN TO ONCOMING RN.
[2021-06-22 06:30] LABS: Albumin, Blood 1.9 g/dL (3.4-5.0); Anion Gap 9 mmol/L (6-16); Blood Urea Nitrogen 13 mg/dL (8-24); Bun/Creatinine Ratio 19.1 (12.0-20.0); CO2, Blood 23 mmol/L (21-32); Calcium, Blood 8.5 mg/dL (8.5-10.1); Chloride, Blood 98 mmol/L (98-108); Creatinine, Blood 0.68 mg/dL (0.40-1.00); Glomerular Filtration Rate >60 (60-); Glucose, Blood 88 mg/dL (70-99); Phosphorus, Blood 2.3 mg/dL (2.5-4.9); Potassium, Blood 4.4 mmol/L (3.5-5.5); Sodium, Blood 130 mmol/L (136-145)
--- NOTE | 2021-06-22 18:30 | NUR ---
SHIFT SUMMARY PT AxOx3 WITH INTERM CONFUSION. PT HAS BEEN VERY SLEEPY TODAY. IN ROOM FOR VISIT AND UPDATE. PT PEREZ WAS DC'D TODAY AND PATIENT URINATED AND HAD CONTINENT BM. TELE WAS DC'D. PT IN ROOM TODAY. SPEECH EVAL ORDERED. DR JUAN DANIEL DAMICO DOBHOFF PENDING RESULTS. COBRA TRANSFER TO [facility] STILL PENDING. PT STILL HAVING POOR APPETITE. DR TODD CONSULT ORDERED. PT IS CURRENTLY SITTING UP IN BED EATING DINNER. CALL LIGHT IN REACH.
--- NOTE | 2021-06-23 04:36 | NUR ---
SHIFT SUMMARY: CLAUDIA REAMAINED STABLE ALL NIGHT. SHE VOIDED 3 TIMES AND HAD A LOOSE DARK BM ACCORSDING TO SIGHTSEEING GUIDE. SHE WAS TRANSFERRED WITH A GAIBELT TO THE BEDSIDE COMMODE. SHE IS STILL WEAK AND LETHARGIC.SHE IS PLEASANT, AND SHE USES THE CALL LIGHT APPROPRIARELY. DAY SHIFT REPORTS D/C PEREZ AND SPEECH EVAL PENDING.
[2021-06-23 06:20] LABS: BASOPHILS ABSOLUTE AUTO 0.04 K/mm3 (0.00-0.23); BASOPHILS PERCENT AUTO 1 % (0-2); EOSINOPHILS ABSOLUTE AUTO 0.09 K/mm3 (0.00-0.68); EOSINOPHILS PERCENT AUTO 1 % (0-6); Hematocrit 32.4 % (33.0-51.0); Hemoglobin 10.8 g/dL (11.5-16.0); IMMATURE GRAN ABSOLUTE AUTO 0.36 K/mm3 (0.00-0.10); IMMATURE GRAN PERCENT AUTO 4 % (0-1); LYMPHOCYTES ABSOLUTE AUTO 1.55 K/mm3 (0.84-5.20); LYMPHOCYTES PERCENT AUTO 18 % (21-46); MONOCYTES ABSOLUTE AUTO 0.91 K/mm3 (0.16-1.47); MONOCYTES PERCENT AUTO 10 % (4-13); Mean Corpuscular HGB 29.3 pg (26.0-34.0); Mean Corpuscular HGB Conc 33.3 g/dL (31.5-36.5); Mean Corpuscular Volume 88 fL (80-100); Mean Platelet Volume 9.4 fL (9.1-12.4); NEUTROPHILS ABSOLUTE AUTO 5.79 K/mm3 (1.96-9.15); NEUTROPHILS PERCENT AUTO 66 % (41-73); Platelet Count 284 K/mm3 (150-400); RDW Coefficient Variation 13.5 % (11.7-14.2); RDW Standard Deviation 43.5 fL (35.1-46.3); Red Blood Cell Count 3.68 M/mm3 (3.80-5.20); White Blood Cell Count 8.74 K/mm3 (4.00-11.30)
[2021-06-23 06:44] LABS: Alanine Aminotransfer (ALT/SGP 24 U/L (12-78); Albumin, Blood 2.3 g/dL (3.4-5.0); Albumin/Globulin Ratio 0.6 (0.8-1.8); Alk Phos 168 U/L (50-136); Anion Gap 7 mmol/L (6-16); Aspartate Aminotrans (AST/SGOT 10 U/L (12-37); Bilirubin, Total 0.4 mg/dL (0.1-1.0); Blood Urea Nitrogen 14 mg/dL (8-24); Bun/Creatinine Ratio 21.1 (12.0-20.0); CO2, Blood 27 mmol/L (21-32); Calcium, Blood 8.7 mg/dL (8.5-10.1); Chloride, Blood 96 mmol/L (98-108); Creatinine, Blood 0.66 mg/dL (0.40-1.00); Globulin, Blood 3.9 g/dL (2.2-4.0); Glomerular Filtration Rate >60 (60-); Glucose, Blood 98 mg/dL (70-99); Potassium, Blood 4.1 mmol/L (3.5-5.5); Sodium, Blood 130 mmol/L (136-145); Total Protein, Blood 6.2 g/dL (6.4-8.2)
--- NOTE | 2021-06-23 17:37 | NUR ---
SHIFT SUMMARY PT A&O X4 & IN PLEASENT MOOD T/O SHIFT, THOUGH AT TIMES WOULD FALL ASLEEP- EASILY AROUSED. PT ATE MIN AMOUNT OF TRAYS DUE TO FALLING ASLEEP, ENSURE PROVIDED. PT ABLE TO TRANSFER 2X MOD ASSIST TO BED SIDE COMODE W/ GB. PHYSICAL THERAPY VERBALIZED IMPROVEMENT FROM PREVIOUS SHIFT. SPOUSE @ BEDSIDE DURING VISITING HOURS. RESTED IN BED T/O SHIFT. DENIES N/V, N/T. VSS. CALL LIGHT W/IN REACH.
--- NOTE | 2021-06-24 05:44 | NUR ---
SHIFT SUMMARY ASSUMED CARE AT 1900. NO ACUTE EVENTS OVERNIGHT. PT AAOX3, ABLE TO VOICE NEEDS. SLOW TO RESPOND, SLOW SPEECH AND SLOW MOVEMENTS. NEURO CHECK Q4H, UNCHANGED. PT COOPERATIVE. FLAT AFFECT, WITHDRAWN. EASILY FATIGUED. SHE MOVES ALL EXTREMITIES BUT HAS GENERALIZED WEAKNESS. X2 MAX ASSIST OOB TO BSC. SCHEDULED MEDICATIONS ADMINISTERED. PT APPEARS TO BE TOLERATING PO. DENIES NAUSEA. RUE POWERGLIDE DRESSING INTACT. NO COMPLAINTS VOICED. BED IS IN LOW POSITION WITH THE CALL LIGHT WITHIN EASY REACH, BED ALARM ACTIVATED. WILL CONTINUE TO MONITOR.
[2021-06-24 05:57] LABS: BASOPHILS ABSOLUTE AUTO 0.03 K/mm3 (0.00-0.23); BASOPHILS PERCENT AUTO 1 % (0-2); EOSINOPHILS ABSOLUTE AUTO 0.02 K/mm3 (0.00-0.68); EOSINOPHILS PERCENT AUTO 0 % (0-6); Hematocrit 31.4 % (33.0-51.0); Hemoglobin 10.5 g/dL (11.5-16.0); IMMATURE GRAN ABSOLUTE AUTO 0.28 K/mm3 (0.00-0.10); IMMATURE GRAN PERCENT AUTO 5 % (0-1); LYMPHOCYTES ABSOLUTE AUTO 1.62 K/mm3 (0.84-5.20); LYMPHOCYTES PERCENT AUTO 27 % (21-46); MONOCYTES ABSOLUTE AUTO 0.96 K/mm3 (0.16-1.47); MONOCYTES PERCENT AUTO 16 % (4-13); Mean Corpuscular HGB 29.4 pg (26.0-34.0); Mean Corpuscular HGB Conc 33.4 g/dL (31.5-36.5); Mean Corpuscular Volume 88 fL (80-100); Mean Platelet Volume 9.1 fL (9.1-12.4); NEUTROPHILS ABSOLUTE AUTO 3.14 K/mm3 (1.96-9.15); NEUTROPHILS PERCENT AUTO 52 % (41-73); Platelet Count 265 K/mm3 (150-400); RDW Coefficient Variation 13.3 % (11.7-14.2); Red Blood Cell Count 3.57 M/mm3 (3.80-5.20); White Blood Cell Count 6.05 K/mm3 (4.00-11.30)
[2021-06-24 06:21] LABS: Albumin, Blood 2.4 g/dL (3.4-5.0); Anion Gap 6 mmol/L (6-16); Blood Urea Nitrogen 15 mg/dL (8-24); Bun/Creatinine Ratio 25.4 (12.0-20.0); C-REACTIVE PROTEIN, EXT RANGE 0.793 mg/dL (0.000-0.300); CO2, Blood 27 mmol/L (21-32); Calcium, Blood 8.5 mg/dL (8.5-10.1); Chloride, Blood 97 mmol/L (98-108); Creatinine, Blood 0.59 mg/dL (0.40-1.00); Glomerular Filtration Rate >60 (60-); Glucose, Blood 103 mg/dL (70-99); Phosphorus, Blood 1.9 mg/dL (2.5-4.9); Potassium, Blood 4.5 mmol/L (3.5-5.5); Sodium, Blood 130 mmol/L (136-145)
--- NOTE | 2021-06-24 17:50 | NUR ---
SHIFT SUMMARY PT A&O X4 AND IN PLEASENT MOOD T/O SHIFT. PT ABLE TO SIT SELF UP AND SELF DANGLE ON SIDE OF BED TODAY AND BRUSH OUT HAIR W/ SOME ASSISTANCE. AWAKE MOST OF SHIFT. PT APPEARS TO HAVE A SLIGHTLY FASTER SPEECH RESPONSE TIME. DR. TODD CONSULTED TODAY, SEE NOTE. PLAN TO TRANSFER TO SNF FOR IV ABX TREATMENT AND PT. SPOUSE @ BEDSIDE DURING VISITING HOURS. PT DID VOMIT ONCE TODAY, THOUGH DENIED NAUSEA- PT STATED FELLING BETTER AFTER NO FURTHER S/S OF N/V, C/O HEART BURN MEDICATION CHANGED TO PRILOSEC PER PT REQUEST. VSS. CALL LIGHT W/IN REACH.
--- NOTE | 2021-06-24 18:45 | NUR ---
EMESIS PT VOMITED SECOND TIME DURING SHIFT AFTER DRINKING SOME TEA W/ DINNER, PT DENIED NAUSEA. PT STATED IT WAS HEART BURN RELATED-- TUMS ORDERED AND ADDMINISTERED.
[2021-06-25 06:23] LABS: BASOPHILS ABSOLUTE AUTO 0.01 K/mm3 (0.00-0.23); BASOPHILS PERCENT AUTO 0 % (0-2); EOSINOPHILS ABSOLUTE AUTO 0.02 K/mm3 (0.00-0.68); EOSINOPHILS PERCENT AUTO 0 % (0-6); Hematocrit 30.9 % (33.0-51.0); Hemoglobin 10.3 g/dL (11.5-16.0); IMMATURE GRAN ABSOLUTE AUTO 0.22 K/mm3 (0.00-0.10); IMMATURE GRAN PERCENT AUTO 3 % (0-1); LYMPHOCYTES ABSOLUTE AUTO 1.64 K/mm3 (0.84-5.20); LYMPHOCYTES PERCENT AUTO 23 % (21-46); MONOCYTES ABSOLUTE AUTO 1.08 K/mm3 (0.16-1.47); MONOCYTES PERCENT AUTO 15 % (4-13); Mean Corpuscular HGB 29.4 pg (26.0-34.0); Mean Corpuscular HGB Conc 33.3 g/dL (31.5-36.5); Mean Corpuscular Volume 88 fL (80-100); Mean Platelet Volume 9.1 fL (9.1-12.4); NEUTROPHILS ABSOLUTE AUTO 4.09 K/mm3 (1.96-9.15); NEUTROPHILS PERCENT AUTO 58 % (41-73); NRBC ABSOLUTE 0.02 K/mm3 (0.00-0.02); NRBC Auto 0.3 /100 WBC (0.0-0.2); Platelet Count 255 K/mm3 (150-400); RDW Coefficient Variation 13.4 % (11.7-14.2); RDW Standard Deviation 42.7 fL (35.1-46.3); White Blood Cell Count 7.06 K/mm3 (4.00-11.30)
[2021-06-25 06:38] LABS: Alanine Aminotransfer (ALT/SGP 29 U/L (12-78); Albumin, Blood 2.6 g/dL (3.4-5.0); Albumin/Globulin Ratio 0.6 (0.8-1.8); Alk Phos 140 U/L (50-136); Anion Gap 8 mmol/L (6-16); Aspartate Aminotrans (AST/SGOT 13 U/L (12-37); Bilirubin, Total 0.4 mg/dL (0.1-1.0); Blood Urea Nitrogen 15 mg/dL (8-24); CO2, Blood 28 mmol/L (21-32); Calcium, Blood 9.2 mg/dL (8.5-10.1); Chloride, Blood 93 mmol/L (98-108); Creatinine, Blood 0.63 mg/dL (0.40-1.00); Glomerular Filtration Rate >60 (60-); Glucose, Blood 94 mg/dL (70-99); Potassium, Blood 4.1 mmol/L (3.5-5.5); Sodium, Blood 129 mmol/L (136-145); Total Protein, Blood 6.6 g/dL (6.4-8.2)
--- NOTE | 2021-06-25 07:37 | NUR ---
SHIFT SUMMARY ASSUMED CARE AT 1900. PT WITH ONE EPISODE OF VOMITING LAST NIGHT, MEDICATED WITH PRN ZOFRAN WITH GOOD EFFECT. PT BELIEVES VOMITING IS CAUSED BY "NASTY" TASTE ASSOCIATED WITH SALINE WHEN LUE POWERGLIDE IS FLUSHED. SITE BENIGN. NO OTHER COMLAINTS VOICED. NEURO CHECKS Q4H, PT STILL WITH GENERALIZED WEAKNESS. BED IS IN LOW POSITION WITH THE CALL LIGHT WITHIN EASY REACH.
--- NOTE | 2021-06-25 18:38 | NUR ---
SHIFT SUMMARY: PT A/O X 3 SHE WAS AWAKE MOST OF THE MORNING BUT SLEPT MOST OF THE AFTERNOON. SHE WAS EASILY AROUSED AND DENIED CONCERNS DURING THOSE TIMES. NO OTHER CHANGES AT THIS TIME.
--- NOTE | 2021-06-26 06:54 | NUR ---
SHIFT SUMMARY ASSUMED CARE AT 1900. NO ACUTE EVENTS OVERNIGHT. MEDICATED FOR NAUSEA X 1 WITH PRN ZOFRAN. AAOX3, REMAINS SLOW TO ANSWER AND SLOW WITH MOVEMENTS. X2 ASSIST WITH GAIT BELT AND ROLLING WALKER TO BSC. LUE POWERGLIDE DRESSING INTACT. PT UPDATED ON PLAN OF CARE REGARDING 500ML FREE WATER RESTRICTION AND SODIUM TABLETS THAT SHE WILL START RECEIVING REGARDING HER LOW SERUM SODIUM LEVELS- SHE VERBALIZED HER UNDERSTANDING. BED IN LOW POSITION WITH THE CALL LIGHT WITHIN EASY REACH. WILL CONTINUE TO MONITOR. BED ALARM ACTIVATED.
--- NOTE | 2021-06-26 14:08 | NUR ---
SHIFT SUMMARY PT RESTING QUIETLY AT START OF SHIFT. WAKES EASILY FOR CARE, BUT VERY DROWSY AND SOMNOLENT. PT ENCOURAGED TO GET UP TO EOB FOR BREAKFAST; DECLINED. DID WORK WITH P/T, BUT KEPT TRYING TO FALL ASLEEP DURING PARTICIPATION. FAMILY CALLED TO K ON PT. UPDATE GIVEN. DR ZAVALA HERE TO SEE PT AND DISCUSS PLAN OF CARE. PT MOST LIKELY TO D/C TO SNF TO COMPLETE ABX DOSES. PT WILL NO LONGER NEED TO TX TO HIGHER LEVEL OF CARE, PT HAS IMPROVED WITH ABX TX. DR ZAVALA ENCOURAGED PT TO GET UP OOB AND WALK AROUND RM. PT UNWILLING TO DO SO. PT ALSO ENCOURAGED TO GET UP TO EOB FOR MEALS, BUT PT REFUSED. PT DIFFICULT TO MOTIVATE. PT VERY WEAK AND DECONDITIONED. C/O "HRT BURN" MAALOX GIVEN PER EMAR. PT REPORTED IT EFFECTIVE. UP TO BSC TO VOID WITH 2P ASSIST USING GB AND PIVOT TX. PT NOT WANTING TO TAKE MORE THAN 2 SM STEPS. NO C/O PAIN. DENIED FURTHER NEEDS AT THIS TIME. CALL LT IN REACH.
--- NOTE | 2021-06-26 19:05 | NUR ---
for water specifically she has drank 120cc throughout day shift. one entire ensure and half of one medium sized cup water. 240 was remailing in room that has not been charted.
[2021-06-27 05:37] LABS: BASOPHILS ABSOLUTE AUTO 0.02 K/mm3 (0.00-0.23); BASOPHILS PERCENT AUTO 0 % (0-2); EOSINOPHILS ABSOLUTE AUTO 0.03 K/mm3 (0.00-0.68); EOSINOPHILS PERCENT AUTO 1 % (0-6); Hematocrit 29.6 % (33.0-51.0); Hemoglobin 9.9 g/dL (11.5-16.0); IMMATURE GRAN ABSOLUTE AUTO 0.12 K/mm3 (0.00-0.10); IMMATURE GRAN PERCENT AUTO 2 % (0-1); LYMPHOCYTES ABSOLUTE AUTO 1.06 K/mm3 (0.84-5.20); LYMPHOCYTES PERCENT AUTO 21 % (21-46); MONOCYTES ABSOLUTE AUTO 0.85 K/mm3 (0.16-1.47); MONOCYTES PERCENT AUTO 17 % (4-13); Mean Corpuscular HGB 29.5 pg (26.0-34.0); Mean Corpuscular HGB Conc 33.4 g/dL (31.5-36.5); Mean Corpuscular Volume 88 fL (80-100); Mean Platelet Volume 8.9 fL (9.1-12.4); NEUTROPHILS ABSOLUTE AUTO 2.98 K/mm3 (1.96-9.15); NEUTROPHILS PERCENT AUTO 59 % (41-73); Platelet Count 200 K/mm3 (150-400); RDW Coefficient Variation 13.3 % (11.7-14.2); RDW Standard Deviation 42.1 fL (35.1-46.3); Red Blood Cell Count 3.36 M/mm3 (3.80-5.20); White Blood Cell Count 5.06 K/mm3 (4.00-11.30)
[2021-06-27 06:01] LABS: Alanine Aminotransfer (ALT/SGP 25 U/L (12-78); Albumin, Blood 2.9 g/dL (3.4-5.0); Albumin/Globulin Ratio 0.9 (0.8-1.8); Alk Phos 130 U/L (50-136); Anion Gap 6 mmol/L (6-16); Aspartate Aminotrans (AST/SGOT 9 U/L (12-37); Bilirubin, Total 0.5 mg/dL (0.1-1.0); Blood Urea Nitrogen 11 mg/dL (8-24); Bun/Creatinine Ratio 17.7 (12.0-20.0); CO2, Blood 30 mmol/L (21-32); Chloride, Blood 93 mmol/L (98-108); Creatinine, Blood 0.62 mg/dL (0.40-1.00); Globulin, Blood 3.3 g/dL (2.2-4.0); Glomerular Filtration Rate >60 (60-); Glucose, Blood 102 mg/dL (70-99); Sodium, Blood 129 mmol/L (136-145); Total Protein, Blood 6.2 g/dL (6.4-8.2)
--- NOTE | 2021-06-27 06:32 | NUR ---
SHIFT SUMMARY ASSUMED CARE AT 1900. NO ACUTE EVENTS OVERNIGHT. PT MEDICATED FOR C/O HEADACHE X1 WITH GOOD EFFECT; PT REPORTED HEADACHE HAD RESOLVED. PT REPORTED FEELING TIRED THAT WHY SHE WAS SLEEPING SO MUCH DURING THE DAYSHIFT. PT WAS SLEEPY DURING THIS SHIFT BUT AROUSABLE TO VOICE, ORIENTED X3. DENIED NAUSEA AND HEARTBURN. LUE POWERGLIDE DRESSING INTACT. PT REMAINS WITH GENERALIZED WEAKNESS. NEURO CHECKS DONE [id number] UNCHANGED. BED IN LOW POSITION WITH THE CALL LIGHT WITHIN EASY REACH. BED ALARM REMAINS ACTIVATED. WILL CONTINUE TO MONITOR.
--- NOTE | 2021-06-27 17:46 | NUR ---
SHIFT SUMMARY PT A LITTLE MORE ALERT TODAY THAN YESTERDAY. WAS WILLING TO GET UP TO BSC TO VOID AT START OF SHIFT. PER SHIFT REPORT, PT HAD REQUESTED BED FRANCO DURING THE NIGHT. PT LATER REPORTED DR ZAVALA WANTED HER TO WALK INTO BTHRM. PT LATER CALLED TO GET UP BUT APPEARED TO WEAK TO MAKE IT ALL THE WAY INTO BTHRM. PT ABLE TO WALK HALF WAY AND THEN USE BSC. PT PICKING AT MEALS A LITTLE BETTER TODAY THAN YESTERDAY. PT ENCOURAGED TO WORK AT BECOMING MORE MOBILE SO SHE DOESN'T DECLINE FURTHER. VISITOR TO THIS EVENING. PT AWAKE. DENIED FURTHER NEEDS. CALL LT IN REACH.
--- NOTE | 2021-06-28 08:31 | NUR ---
SUMMARY PT SLEPT MOST OF SHIFT.
--- NOTE | 2021-06-28 16:36 | NUR ---
SHIFT SUMMARY; PATIENT UP TO BEDSIDE COMMODE X 2 DURING DAY. ONE PERSON ASSIST. SHE IS AO X 4. HAS PLEASANT AFFECT. HAS POOR APPETITE AND EATS VERY LITTLE. SHE SLEEPS MOST OF DAY. CAME TO SEE PATIENT AND WILL DISCUSS PLAN OF CARE WITH . PLAN IS FOR DILIA TO GO TO SNF FOR STRENGTHENING PRIOR TO GOING HOME AND POSSIBLE IV ANTIBIOTICS WHILE IN SNF. WILL REMAIN AVAILABLE FOR THIS PATIENT FOR ANY WANTS OR NEEDS UNTIL HAND OFF AT SHIFT CHANGE.
--- NOTE | 2021-06-29 04:00 | NUR ---
STEM SETTER SUMMARY AWAKE AT INTERVALS EARLIER IN THE SHIFT - TO VOID IN BEDSIDE COMMODE, ETC. IVF OF ANTIBIOTICS INFUSING PER MD ORDERS - SEE MAR FOR DETAILS. TOLERATING PILLS WITH WATER ONE AT A TIME. SLOW TO RESPOND TO QUESTIONS AND PHYSICALLY. CURRENTLY RESTING QUIETLY. RITA LIGHT IN REACH. VSS
--- NOTE | 2021-06-29 17:37 | NUR ---
SHIFT SUMMARY; PATIENT COMPLAINED OF MIGRAINE HEADACHE TODAY AND ASKED TO HAVE LIGHTS LOW IN HER ROOM ALL DAY. SHE WAS MEDICATED X 1 WITH ROXYCODONE WITH GOOD SUCCESS HOWEVER PER PATIENT SHE FEELS LIKE SHE SHOULD REST FOR THE DAY. PATIENT DID EAT MINIMAL BREAKFAST REFUSED LUNCH AND IS SITTING UP IN BED FOR EVENING MEAL WITH LIGHTS LOW. VITAL SIGNS REMAIN WNL. LUNGS ARE DIM IN ALL 4. SLIGHT COUGH NOTED. WILL REMAIN AVAILABLE FOR THIS PATIENT FOR ANY WANTS OR NEEDS UNTIL HAND OFF TO NOC SHIFT RN AT SHIFT CHANGE.
--- NOTE | 2021-06-30 03:13 | NUR ---
ROCKET ENGINE MECHANIC SUMMARY HAS BEEN SLEEPING QUIETLY FOR MOST OF THE SHIFT, AWAKENED A FEW TIMES FOR ASSISSTENCE TO USE COMMODE AT BEDSIDE AND FOR PAIN MEDS, (HEADACHE). IV ANTIBIOTICS ADMINISTERED ORDERED - SEE MAR FOR DETAILS. WHEN SHE WAS AWAKE EARLIER VOICED FRUSTRATION RE HER BEING "TRED" EVEN WHEN SHE "SLEEPS MOST OF THE DAY". WE DISCUSSED POST COVID SYMPTOMS. AFFECT MORE CHEERFUL TONIGHT THAN NOTED 24 HRS PREVIOUS. CALL LIGHT IN REACH.
--- NOTE | 2021-06-30 16:13 | NUR ---
Shift Summary AOx4, pleasant/cooperative. Up with 1p/FWW/gait belt to bedside commode. Medicated x 1 for nausea and pain, no emesis this shift. Appetite is diminished. Slept most of the day, patient states "tired". No additional complaints. WCTM.
--- NOTE | 2021-07-01 03:56 | NUR ---
SHIFT SUMMARY PATIENT HAD NO ACUTE CHANGES OBSERVED. AXOX 3 AND SLOW TO RESPOND. 1-2 ASSIST WITH FWW AND GAIT BELT. POWERGLIDE JEAN INTACT. IV ABXS INFUSED. WATER RESTRICTIONS 500 mL. TAKES MEDICATION ONE EACH WITH WATER. DENIES PAIN, SOB, AND N/V. ABLE TO SLEEP MOST OF THE SHIFT. CALL LIGHT IN REACH. BED IN LOWEST POSITION. WILL CONTINUE TO MONITOR UNTIL DAY SHIFT NURSE ASSUMES CARE.
[2021-07-01 05:25] LABS: BASOPHILS ABSOLUTE AUTO 0.01 K/mm3 (0.00-0.23); BASOPHILS PERCENT AUTO 0 % (0-2); EOSINOPHILS ABSOLUTE AUTO 0.12 K/mm3 (0.00-0.68); EOSINOPHILS PERCENT AUTO 3 % (0-6); Hematocrit 26.8 % (33.0-51.0); Hemoglobin 8.8 g/dL (11.5-16.0); IMMATURE GRAN ABSOLUTE AUTO 0.04 K/mm3 (0.00-0.10); IMMATURE GRAN PERCENT AUTO 1 % (0-1); LYMPHOCYTES PERCENT AUTO 20 % (21-46); MONOCYTES ABSOLUTE AUTO 0.52 K/mm3 (0.16-1.47); MONOCYTES PERCENT AUTO 13 % (4-13); Mean Corpuscular HGB Conc 32.8 g/dL (31.5-36.5); Mean Corpuscular Volume 92 fL (80-100); Mean Platelet Volume 9.2 fL (9.1-12.4); NEUTROPHILS ABSOLUTE AUTO 2.47 K/mm3 (1.96-9.15); NEUTROPHILS PERCENT AUTO 62 % (41-73); Platelet Count 224 K/mm3 (150-400); RDW Standard Deviation 46.5 fL (35.1-46.3); Red Blood Cell Count 2.93 M/mm3 (3.80-5.20); White Blood Cell Count 3.96 K/mm3 (4.00-11.30)
[2021-07-01 06:01] LABS: Alanine Aminotransfer (ALT/SGP 48 U/L (12-78); Albumin, Blood 2.7 g/dL (3.4-5.0); Albumin/Globulin Ratio 0.8 (0.8-1.8); Alk Phos 248 U/L (50-136); Anion Gap 6 mmol/L (6-16); Aspartate Aminotrans (AST/SGOT 36 U/L (12-37); Bilirubin, Total 0.2 mg/dL (0.1-1.0); Blood Urea Nitrogen 10 mg/dL (8-24); Bun/Creatinine Ratio 14.7 (12.0-20.0); CO2, Blood 32 mmol/L (21-32); Chloride, Blood 95 mmol/L (98-108); Creatinine, Blood 0.68 mg/dL (0.40-1.00); Globulin, Blood 3.3 g/dL (2.2-4.0); Glomerular Filtration Rate >60 (60-); Glucose, Blood 87 mg/dL (70-99); Potassium, Blood 4.2 mmol/L (3.5-5.5); Sodium, Blood 133 mmol/L (136-145)
--- NOTE | 2021-07-01 17:01 | NUR ---
NO ACUTE CHANGES PT AOX3 AND COOPERATIVE OF CARE. PT TAKES A LOT OF NAPS AND WORKED WELL TODAY WITH PT AND OT. PT WAS UP IN CHAIR FOR A TIME AND TOLERATED WELL. PT TREATED PER EMAR FOR HEADACHE WILL CONTINUE TO MONITOR.
--- NOTE | 2021-07-02 04:29 | NUR ---
SHIFT SUMMARY ADMITTED FOR NOCARDIA MENINGITIS. FULL CODE. PLAN IS FOR PLACEMENT IN REHAB. WE NEED TO FOLLOW UP WITH [facility] FOR ANTIB RX TX PLAN. EXPECTING TO BE ON ANTIB RX UNTIL 07/07 AT LEAST. JOHN IN E. SHE WAS PREVIOUSLY LIVING AT HOME WITH HER SPOUSE. RX WHOLE, 1 @ A TIME. I DID MEDICATE HER ONCE FOR HEADACHE THIS SHIFT. IV ANTIB RX ARE SCHEDULED.
--- NOTE | 2021-07-02 17:22 | NUR ---
NO ACUTE CHANGES.PT CONTINUES TO WANT TO SLEEP. PT REFUSED TO GET UP FOR BREAKFAST, BUT DID GET UP FOR LUNCH. PT REPORTED IRENE AND WAS TREATED PER EMAR. CALL LIGHT IS WITHIN REACH WILL CONTINUET TO MONITOR.
--- NOTE | 2021-07-03 06:05 | NUR ---
07/02/211949 PT LYING IN BED, REPORTS HEADACHE AND THAT SHE GETS NAUSEA W/MEDS. GAVE NORCO AND ZOFRAN, WILL EVAL FOR EFFECT. PT HAS ABRASION WITH CLEAR DRESSING OVER IT ON TOP OF R HAND. NO OTHER APPARENT SIGNS OF DISTRESS. CALL LIGHT IS IN REACH. 2199 PT LYING IN BED, EYES CLOSED, APPEARS TO BE RESTING. BREATHING IS EVEN, UNLABORED. NO APPARENT SIGNS OF DISTRESS. CALL LIGHT IS IN REACH.
--- NOTE | 2021-07-03 06:06 | NUR ---
0000 PT LYING IN BED, EYES CLOSED, APPEARS TO BE RESTING. BREATHING IS EVEN, UNLABORED. NO APPARENT SIGNS OF DISTRESS. CALL LIGHT IS IN REACH. 0200 PT STILL LYING IN BED, EYES CLOSED, APPEARS TO BE RESTING. BREATHING IS EVEN, UNLABORED. NO APPARENT SIGNS OF DISTRESS. CALL LIGHT IS IN REACH.
--- NOTE | 2021-07-03 06:08 | NUR ---
0400 PT LYING IN BED, EYES CLOSED, APPEARS TO BE RESTING. WAKES EASLY TO VERBAL STIMULI. NO APPARENT SIGNS OF DISTRESS. CALL LIGHT IS IN REACH. 0600 PT LYING IN BED, EYES CLOSED, APPEARS TO BE RESTING. BREATHING IS EVEN, UNLABORED. NO APPARENT SIGNS OF DISTRESS. CALL LIGHT IS IN REACH. NO OTHER CHANGES THIS SHIFT.
--- NOTE | 2021-07-03 06:09 | NUR ---
PT IS AAO X 4, ON RA. REPORTED HEADACHE AND NAUSEA, GOT NORCO AND ZOFRAN X 2. ABRASION TO TOP OF R HAND WITH CLEAR DRESSING OVER IT.
--- NOTE | 2021-07-03 17:31 | NUR ---
SHIFT SUMMARY PATIENT MEDICATED WITH NORCO FOR HEADACHE X2 WITH GOOD EFFECT. PATIENT MEDICATED WITH ZOFRAN X2 WITH GOOD EFFECT. PATIENT DENIES SOB. PATIENT IS A 1 PERSON TO THE BSC. PATIENT IS VERY WEAK. PATIENT SLEPT MOST OF MY SHIFT. PATIENT HAS POOR PO INTAKE. PATIETN DOES DRINK TH ENSURES CONSISTENTLY. PATIENT IS PLEASANT AND COOPERATIVE WITH CARE.
--- NOTE | 2021-07-04 05:02 | NUR ---
SHIFT SUMMARY PT'S MOOD IS FLAT. PT APPEARS ILL AND FATIGUED. SLEEPS MUCH OF THE TIME. PT REPORTED THAT SHE HAS BEEN ALMOST COMPLETELY UNABLE TO KEEP ANY FOOD DOWN. BECOMES NAUSEATED WITH ANY ORAL INTAKE. EVEN WITH MEDICATIONS AND WATER. MEDICATED WITH ZOFRAN WITH NIGHTTIME MEDICATIONS. PT REPORTED HEADACHE AND NECK ACHE EARLY IN SHIFT. MEDICATED X 1 W/ 1 TAB NORCO WITH GOOD EFFECT. PT APPEARED TO REST FOLLOWING. OTHERWISE PT HAD AN UNEVENTFUL NIGHT. WILL CONTINUE TO MONITOR.
[2021-07-04 07:45] LABS: BASOPHILS ABSOLUTE AUTO 0.01 K/mm3 (0.00-0.23); BASOPHILS PERCENT AUTO 0 % (0-2); EOSINOPHILS ABSOLUTE AUTO 0.15 K/mm3 (0.00-0.68); EOSINOPHILS PERCENT AUTO 5 % (0-6); Hematocrit 26.5 % (33.0-51.0); Hemoglobin 8.5 g/dL (11.5-16.0); IMMATURE GRAN ABSOLUTE AUTO 0.03 K/mm3 (0.00-0.10); IMMATURE GRAN PERCENT AUTO 1 % (0-1); LYMPHOCYTES ABSOLUTE AUTO 0.66 K/mm3 (0.84-5.20); LYMPHOCYTES PERCENT AUTO 21 % (21-46); MONOCYTES ABSOLUTE AUTO 0.58 K/mm3 (0.16-1.47); MONOCYTES PERCENT AUTO 18 % (4-13); Mean Corpuscular HGB 29.8 pg (26.0-34.0); Mean Corpuscular HGB Conc 32.1 g/dL (31.5-36.5); Mean Corpuscular Volume 93 fL (80-100); NEUTROPHILS ABSOLUTE AUTO 1.72 K/mm3 (1.96-9.15); NEUTROPHILS PERCENT AUTO 55 % (41-73); Platelet Count 233 K/mm3 (150-400); RDW Standard Deviation 49.5 fL (35.1-46.3); Red Blood Cell Count 2.85 M/mm3 (3.80-5.20); White Blood Cell Count 3.15 K/mm3 (4.00-11.30)
[2021-07-04 08:24] LABS: Albumin, Blood 2.5 g/dL (3.4-5.0); Anion Gap 5 mmol/L (6-16); Blood Urea Nitrogen 7 mg/dL (8-24); Bun/Creatinine Ratio 9.3 (12.0-20.0); CO2, Blood 32 mmol/L (21-32); Calcium, Blood 8.8 mg/dL (8.5-10.1); Chloride, Blood 96 mmol/L (98-108); Creatinine, Blood 0.75 mg/dL (0.40-1.00); Glomerular Filtration Rate >60 (60-); Glucose, Blood 86 mg/dL (70-99); Magnesium, Blood 2.1 mg/dL (1.6-2.4); Phosphorus, Blood 2.3 mg/dL (2.5-4.9); Potassium, Blood 4.3 mmol/L (3.5-5.5); Sodium, Blood 133 mmol/L (136-145)
--- NOTE | 2021-07-04 16:40 | NUR ---
SHIFT SUMMARY PATIENT MEDICATED FOR HEADACHE X2, NAUSEA X2, AND DENIES SHORTNESS OF BREATH. PATIENT IS A ONE PERSON STAND PIVOT TO TRANSFER TO [facility]. PATIENT IS PROFOUNDLY WEAK. PATIENT SLEPT MOST OF SHIFT. PATIENT HAS POOR PO INTAKE, BUT IS IMPROVING. PATIENT WAS ABLE TO EAT A SANDWHICH TODAY. BP THIS MORNING WAS 98/60, DR. BLUM NOTIFIED. NEW ORDERS. PATIENT IS PLEASANT AND COOPERATIVE WITH CARE.
--- NOTE | 2021-07-04 19:55 | NUR ---
1905 PT LYING IN BED, REPORTS PAIN IN FOREHEAD OF 7/10 AND NAUSEA, GAVE NORCO AND ZOFRAN, WILL EVAL FOR EFFECT. ABRASION TO TOP OF R HAND W/ CLEAR DRESSING. NO OTHER APPARENT SIGNS OF DISTRESS. CALL LIGHT IS IN REACH.
--- NOTE | 2021-07-05 03:15 | NUR ---
07/04/21 2200 PT LYING IN BED, EYES CLOSED, APPEARS TO BE RESTING. BREATHING IS EVEN, UNLABORED. NO APPARENT SIGNS OF DISTRESS. CALL LIGHT IS IN REACH. 07/05/21 0000 PT LYING IN BED, EYES CLOSED, WAKES EASILY TO VERBAL STIMULI. DENIES NEED FOR ANYTHING AT THIS TIME. CALL LIGHT IS IN REACH. 0200 PT LYING IN BED, AWAKE, NO APPARENT SIGNS OF DISTRESS, DENIES NEED FOR ANYTHING AT THIS TIME. CALL LIGHT IS IN REACH.
--- NOTE | 2021-07-05 03:17 | NUR ---
PT LYING IN BED, EYES CLOSED, APPEARS TO BE RESTING. BREATHING IS EVEN, UNALBORED. NO APPARENT SIGNS OF DISTRESS. CALL LIGHT IS IN REACH.
--- NOTE | 2021-07-05 03:18 | NUR ---
PT IS AAO X 4, ON RA. REPORTED NAUSEA AND FOREHEAD PAIN, GOT NORCO AND ZOFRAN. HAS ABRASION ON TOP OF R HAND WITH A CLEAR DRESSING.
--- NOTE | 2021-07-05 06:58 | NUR ---
PT LYING IN BED, EYES CLOSED, APPEARS TO BE RESTING. BREATHING IS EVEN, UNLABORED. NO APPARENT SIGNS OF DISTRESS. CALL LIGHT IS IN REACH. NO OTHER CHANGES THIS SHIFT.
[2021-07-05 08:11] LABS: Albumin, Blood 2.6 g/dL (3.4-5.0); Anion Gap 4 mmol/L (6-16); Blood Urea Nitrogen 5 mg/dL (8-24); CO2, Blood 30 mmol/L (21-32); Calcium, Blood 8.6 mg/dL (8.5-10.1); Chloride, Blood 101 mmol/L (98-108); Creatinine, Blood 0.72 mg/dL (0.40-1.00); Glomerular Filtration Rate >60 (60-); Glucose, Blood 83 mg/dL (70-99); Potassium, Blood 4.2 mmol/L (3.5-5.5); Sodium, Blood 135 mmol/L (136-145)
--- NOTE | 2021-07-05 18:25 | NUR ---
PT A/O X4, FLAT AFFECT, RELUCTANT TO WORK WITH P.T. TODAY BUT DID GET UP TO CHAIR FOR A SHORT TIME. CONTINUE TO RECEIVED IV BACTRIM AND MERROPENUM EVERY 8 HOURS. NO ACUTE CHANGES NOTED THIS SHIFT, WILL CONTINUE TO MONITOR AND REPORT TO ONCOMING RN
--- NOTE | 2021-07-06 03:58 | NUR ---
SHIFT SUMMARY PT AOX3 WITH SOME CONFUSION. PT STS THAT SHE IS [place]. APPEARS TO HAVE A FLAT AFFECT. REPORT SOME MILD H/A AT THE BEGINNING OF SHIFT. TYLENOL WAS GIVEN. SLEPT GOOD T/O SHIFT. VOIDED ADEQUATELY. VSS. IV ABX ADMINISTERED. PT GOT UP IN BED THIS MORNING AND SAT ON CHAIR. LINEN WAS CHANGED, PT SOILED WITH UA IN BED. CALL LIGHT WITHIN REACH. WILL PROVIDE REPORT TO ONCOMING NURSE.
[2021-07-06 05:15] LABS: BASOPHILS ABSOLUTE AUTO 0.01 K/mm3 (0.00-0.23); BASOPHILS PERCENT AUTO 0 % (0-2); EOSINOPHILS ABSOLUTE AUTO 0.16 K/mm3 (0.00-0.68); EOSINOPHILS PERCENT AUTO 7 % (0-6); Hematocrit 26.8 % (33.0-51.0); Hemoglobin 8.6 g/dL (11.5-16.0); IMMATURE GRAN ABSOLUTE AUTO 0.03 K/mm3 (0.00-0.10); IMMATURE GRAN PERCENT AUTO 1 % (0-1); LYMPHOCYTES ABSOLUTE AUTO 0.87 K/mm3 (0.84-5.20); LYMPHOCYTES PERCENT AUTO 36 % (21-46); MONOCYTES ABSOLUTE AUTO 0.42 K/mm3 (0.16-1.47); MONOCYTES PERCENT AUTO 17 % (4-13); Mean Corpuscular HGB 29.7 pg (26.0-34.0); Mean Corpuscular HGB Conc 32.1 g/dL (31.5-36.5); Mean Corpuscular Volume 92 fL (80-100); Mean Platelet Volume 8.8 fL (9.1-12.4); NEUTROPHILS ABSOLUTE AUTO 0.95 K/mm3 (1.96-9.15); NEUTROPHILS PERCENT AUTO 39 % (41-73); Platelet Count 253 K/mm3 (150-400); RDW Coefficient Variation 14.9 % (11.7-14.2); RDW Standard Deviation 48.6 fL (35.1-46.3); White Blood Cell Count 2.44 K/mm3 (4.00-11.30)
[2021-07-06 05:52] LABS: Albumin, Blood 2.5 g/dL (3.4-5.0); Anion Gap 5 mmol/L (6-16); Blood Urea Nitrogen 6 mg/dL (8-24); Bun/Creatinine Ratio 8.1 (12.0-20.0); CO2, Blood 33 mmol/L (21-32); Calcium, Blood 8.9 mg/dL (8.5-10.1); Chloride, Blood 100 mmol/L (98-108); Creatinine, Blood 0.74 mg/dL (0.40-1.00); Glomerular Filtration Rate >60 (60-); Glucose, Blood 85 mg/dL (70-99); Phosphorus, Blood 2.2 mg/dL (2.5-4.9); Sodium, Blood 138 mmol/L (136-145)
--- NOTE | 2021-07-07 03:59 | NUR ---
SHIFT SUMMARY ADMITTED FOR MENINGITIS. FULL CODE. PLAN IS FOR LONG COURSE OF IV ANTIB RX AND FOLLOW UP AT [facility]. SHE IS ON A 500 ML FREE WATER RESTRICTION. SHE IS TOO WEAK TO STAND UNAIDED, WE DID A TWO ASSIST TO BSC. SHE HAS A POWERGLIDE IN LUE. SHE IS ON ELIQUIS. SHE DENIED PAIN SO FAR THIS SHIFT.
[2021-07-07 05:07] LABS: BASOPHILS ABSOLUTE AUTO 0.01 K/mm3 (0.00-0.23); BASOPHILS PERCENT AUTO 0 % (0-2); EOSINOPHILS ABSOLUTE AUTO 0.11 K/mm3 (0.00-0.68); EOSINOPHILS PERCENT AUTO 4 % (0-6); Hematocrit 25.7 % (33.0-51.0); Hemoglobin 8.2 g/dL (11.5-16.0); IMMATURE GRAN ABSOLUTE AUTO 0.04 K/mm3 (0.00-0.10); IMMATURE GRAN PERCENT AUTO 1 % (0-1); LYMPHOCYTES ABSOLUTE AUTO 0.88 K/mm3 (0.84-5.20); LYMPHOCYTES PERCENT AUTO 31 % (21-46); MONOCYTES ABSOLUTE AUTO 0.46 K/mm3 (0.16-1.47); MONOCYTES PERCENT AUTO 16 % (4-13); Mean Corpuscular HGB 29.2 pg (26.0-34.0); Mean Corpuscular HGB Conc 31.9 g/dL (31.5-36.5); Mean Corpuscular Volume 92 fL (80-100); Mean Platelet Volume 8.9 fL (9.1-12.4); NEUTROPHILS ABSOLUTE AUTO 1.36 K/mm3 (1.96-9.15); NEUTROPHILS PERCENT AUTO 48 % (41-73); Platelet Count 254 K/mm3 (150-400); RDW Coefficient Variation 15.1 % (11.7-14.2); RDW Standard Deviation 48.8 fL (35.1-46.3); Red Blood Cell Count 2.81 M/mm3 (3.80-5.20); White Blood Cell Count 2.86 K/mm3 (4.00-11.30)
[2021-07-07 05:30] LABS: Albumin, Blood 2.5 g/dL (3.4-5.0); Anion Gap 7 mmol/L (6-16); Blood Urea Nitrogen 5 mg/dL (8-24); Bun/Creatinine Ratio 6.7 (12.0-20.0); CO2, Blood 29 mmol/L (21-32); Calcium, Blood 8.8 mg/dL (8.5-10.1); Chloride, Blood 97 mmol/L (98-108); Creatinine, Blood 0.75 mg/dL (0.40-1.00); Glomerular Filtration Rate >60 (60-); Glucose, Blood 85 mg/dL (70-99); Phosphorus, Blood 1.7 mg/dL (2.5-4.9); Potassium, Blood 3.9 mmol/L (3.5-5.5); Sodium, Blood 133 mmol/L (136-145)
--- NOTE | 2021-07-07 18:16 | NUR ---
SHIFT SUMMARY PT UP FOR BREAKFAST AND JUST PRIOR TO SUPPER BUT WOULDN'T STAY UP IN HER CHAIR FOR SUPPER. SLEEPING WHENEVER LEFT ALONE. AMBULATED IN ROOM WITH O.T. THIS AFTERNOON USING FWW. 1 PERSON SBA TO COMMODE WHEN VOIDING. ALLOWED CURTAINS TO BE OPEN TIL MID AFTERNOON TODAY. REPORTS FEELING VERY TIRED ALL THE TIME.
--- NOTE | 2021-07-08 03:56 | NUR ---
SHIFT SUMMARY NO ACUTE CHANGES TO PT CONDITION AT THIS TIME. PT CONTINUED TO SLEEP THROUGHOUT MOST OF THE NIGHT. CONTINUED ANTIBIOTICS. CALL LIGHT WITHIN REACH. WILL CONTINUE TO MONITOR.
[2021-07-08 05:07] LABS: BASOPHILS ABSOLUTE AUTO 0.01 K/mm3 (0.00-0.23); BASOPHILS PERCENT AUTO 0 % (0-2); EOSINOPHILS ABSOLUTE AUTO 0.07 K/mm3 (0.00-0.68); EOSINOPHILS PERCENT AUTO 3 % (0-6); Hematocrit 24.9 % (33.0-51.0); Hemoglobin 8.2 g/dL (11.5-16.0); IMMATURE GRAN ABSOLUTE AUTO 0.04 K/mm3 (0.00-0.10); IMMATURE GRAN PERCENT AUTO 1 % (0-1); LYMPHOCYTES ABSOLUTE AUTO 0.92 K/mm3 (0.84-5.20); LYMPHOCYTES PERCENT AUTO 33 % (21-46); MONOCYTES ABSOLUTE AUTO 0.48 K/mm3 (0.16-1.47); MONOCYTES PERCENT AUTO 17 % (4-13); Mean Corpuscular HGB 29.7 pg (26.0-34.0); Mean Corpuscular HGB Conc 32.9 g/dL (31.5-36.5); Mean Corpuscular Volume 90 fL (80-100); Mean Platelet Volume 8.9 fL (9.1-12.4); NEUTROPHILS ABSOLUTE AUTO 1.26 K/mm3 (1.96-9.15); NEUTROPHILS PERCENT AUTO 45 % (41-73); Platelet Count 250 K/mm3 (150-400); RDW Coefficient Variation 14.9 % (11.7-14.2); Red Blood Cell Count 2.76 M/mm3 (3.80-5.20); White Blood Cell Count 2.78 K/mm3 (4.00-11.30)
[2021-07-08 05:44] LABS: Albumin, Blood 2.5 g/dL (3.4-5.0); Anion Gap 8 mmol/L (6-16); Blood Urea Nitrogen 7 mg/dL (8-24); Bun/Creatinine Ratio 8.1 (12.0-20.0); CO2, Blood 29 mmol/L (21-32); Calcium, Blood 8.7 mg/dL (8.5-10.1); Chloride, Blood 99 mmol/L (98-108); Creatinine, Blood 0.87 mg/dL (0.40-1.00); Glomerular Filtration Rate >60 (60-); Glucose, Blood 89 mg/dL (70-99); Phosphorus, Blood 2.3 mg/dL (2.5-4.9); Potassium, Blood 3.9 mmol/L (3.5-5.5); Sodium, Blood 136 mmol/L (136-145)
--- NOTE | 2021-07-08 14:30 | NUR ---
Local [facility] are not taking NONCOVID admits at this time: Paperwork faxed to the following IRU's for placement consideration: 1. [facility]/[phone]/fax: [phone] P.O.C: [place] [facility]. [facility] [place]/[phone]/fax: [phone] P.O.C: [place]
--- NOTE | 2021-07-08 16:07 | NUR ---
Faxed packet to [facility] for admittance consideration. Presently the facilty is at capacity, but may have openings next week. marine operations coordinator is Mari Lopez [phone]/fax [phone].
--- NOTE | 2021-07-08 17:27 | NUR ---
SHIFT SUMMARY PT UP IN CHAIR FOR BREAKFAST. SLEPT JAIL THROUGH LUNCH BUT AWAKENED TO EAT A FEW BITES OF MEAL. CURTAINS OPEN FOR LIGHT. O.T. IN TO SEE PT AND WORKED WITH PT WHEELING HERSELF IN HALLWAY USING A W/C AND TOOK HER OUTSIDE TO WORK A BIT IN THE SUN.
--- NOTE | 2021-07-09 05:18 | NUR ---
SHIFT SUMMARY NO ACUTE CHANGES TO PT CONDITION AT THIS TIME. PT DID AWAKEN EARLIER STATING THAT SOMETHING HAD MOVED HER PILLOW WHILE SLEEPING AND ASKED IF WE HAD A CAT. PT DOES KNOW THAT SHE IS AT THE HOSPITAL. WILL CONTINUE TO MONITOR. CALL LIGHT WITHIN REACH.
--- NOTE | 2021-07-09 18:12 | NUR ---
Patient was alert and orient, her affect was restricted and mood was congruent. She was in such better spirits today. She sat up in the chair for at least 1 hour and did some walking. She continued to get ABX intravenous. She complained of pain and did recv [place] with her morning medications. She had no other complaints.
--- NOTE | 2021-07-09 22:49 | NUR ---
GI: PATIENT VOMITED HS PILLS SOON SHE SWALLOWED THEM, ALL PILLS ARE SEEN WHOLE. ZOFRAN WAS GIVEN WITH GOOD EFFECT. SECOND DOSES OF XARELTO AND NORCO WERE GIVEN. PATIENT DECLINNED SODIUM AND PRO BIOTIC.
[2021-07-10 04:49] LABS: BASOPHILS PERCENT AUTO 0 % (0-2); EOSINOPHILS ABSOLUTE AUTO 0.04 K/mm3 (0.00-0.68); EOSINOPHILS PERCENT AUTO 1 % (0-6); Hematocrit 24.1 % (33.0-51.0); Hemoglobin 7.9 g/dL (11.5-16.0); IMMATURE GRAN ABSOLUTE AUTO 0.03 K/mm3 (0.00-0.10); IMMATURE GRAN PERCENT AUTO 1 % (0-1); LYMPHOCYTES ABSOLUTE AUTO 0.89 K/mm3 (0.84-5.20); LYMPHOCYTES PERCENT AUTO 29 % (21-46); MONOCYTES ABSOLUTE AUTO 0.54 K/mm3 (0.16-1.47); MONOCYTES PERCENT AUTO 18 % (4-13); Mean Corpuscular HGB 29.6 pg (26.0-34.0); Mean Corpuscular HGB Conc 32.8 g/dL (31.5-36.5); Mean Corpuscular Volume 90 fL (80-100); Mean Platelet Volume 9.1 fL (9.1-12.4); NEUTROPHILS ABSOLUTE AUTO 1.55 K/mm3 (1.96-9.15); NEUTROPHILS PERCENT AUTO 51 % (41-73); Platelet Count 235 K/mm3 (150-400); RDW Coefficient Variation 14.8 % (11.7-14.2); RDW Standard Deviation 48.4 fL (35.1-46.3); Red Blood Cell Count 2.67 M/mm3 (3.80-5.20); White Blood Cell Count 3.05 K/mm3 (4.00-11.30)
[2021-07-10 05:16] LABS: Alanine Aminotransfer (ALT/SGP 29 U/L (12-78); Albumin, Blood 2.4 g/dL (3.4-5.0); Albumin/Globulin Ratio 0.6 (0.8-1.8); Alk Phos 135 U/L (50-136); Anion Gap 6 mmol/L (6-16); Aspartate Aminotrans (AST/SGOT 24 U/L (12-37); Bilirubin, Total 0.3 mg/dL (0.1-1.0); Blood Urea Nitrogen 11 mg/dL (8-24); Bun/Creatinine Ratio 12.7 (12.0-20.0); CO2, Blood 28 mmol/L (21-32); Calcium, Blood 9.2 mg/dL (8.5-10.1); Chloride, Blood 101 mmol/L (98-108); Creatinine, Blood 0.87 mg/dL (0.40-1.00); Globulin, Blood 4.2 g/dL (2.2-4.0); Glomerular Filtration Rate >60 (60-); Glucose, Blood 65 mg/dL (70-99); Magnesium, Blood 2.1 mg/dL (1.6-2.4); Phosphorus, Blood 2.5 mg/dL (2.5-4.9); Potassium, Blood 3.9 mmol/L (3.5-5.5); Sodium, Blood 135 mmol/L (136-145); Total Protein, Blood 6.6 g/dL (6.4-8.2)
--- NOTE | 2021-07-10 06:51 | NUR ---
SHIFT SUMMARY: PATIENT HAD GOOD EFFECT FROM ZOFRAN. BP THIS AM WAS 86/65, PATIENT WAS ASYMPTOMATIC. DR ALLISON WAS NOTIFIED AND ORDER FOR 500ML BOLUS OF NS WAS OBTAINED AND BOLUS WAS GIVEN. PATIENT CONTINUES TO REPORT INTERMITTENT L ELBOW PAIN, NORCO WAS GIVEN X1 WITH GOOD EFFECT.
--- NOTE | 2021-07-10 16:48 | NUR ---
SHIFT SUMMARY PT SLEEPING AT START OF SHIFT. UP TO CHAIR WITH P/T FOR BREAKFAST. PT BACK TO BED BREIFLY BEFORE LUNCH, VOMITING AFTER GETTING INTO BED. PT REPORTED SODIUM TABLETS MAKE HER SICK. DR RAZO IN TO SEE PT; NEW ORDERS PLACED. PT BACK UP TO CHAIR FOR LUNCH AND SLEEPING FOR THE AFTERNOON. PT A LITTLE MORE ALERT LATER IN THE DAY, THAN IN THE MORNING. STILL VERY WEAK WHEN TRANSFERING OOB; 2P MAX ASSIST WITH GB. NO C/O. DENIED FURTHER NEEDS TO PRESENT. PT HAS BEEN COMPLIANT WITH 500cc FREE WATER RESTRICTION. CALL LT IN REACH.
[2021-07-11 05:48] LABS: BASOPHILS ABSOLUTE AUTO 0.01 K/mm3 (0.00-0.23); BASOPHILS PERCENT AUTO 0 % (0-2); EOSINOPHILS ABSOLUTE AUTO 0.06 K/mm3 (0.00-0.68); EOSINOPHILS PERCENT AUTO 2 % (0-6); Hematocrit 22.2 % (33.0-51.0); Hemoglobin 7.4 g/dL (11.5-16.0); IMMATURE GRAN ABSOLUTE AUTO 0.04 K/mm3 (0.00-0.10); IMMATURE GRAN PERCENT AUTO 1 % (0-1); LYMPHOCYTES ABSOLUTE AUTO 1.03 K/mm3 (0.84-5.20); LYMPHOCYTES PERCENT AUTO 33 % (21-46); MONOCYTES ABSOLUTE AUTO 0.48 K/mm3 (0.16-1.47); MONOCYTES PERCENT AUTO 16 % (4-13); Mean Corpuscular HGB 30.1 pg (26.0-34.0); Mean Corpuscular HGB Conc 33.3 g/dL (31.5-36.5); Mean Corpuscular Volume 90 fL (80-100); Mean Platelet Volume 9.7 fL (9.1-12.4); NEUTROPHILS ABSOLUTE AUTO 1.46 K/mm3 (1.96-9.15); NEUTROPHILS PERCENT AUTO 48 % (41-73); Platelet Count 206 K/mm3 (150-400); RDW Coefficient Variation 14.6 % (11.7-14.2); RDW Standard Deviation 46.5 fL (35.1-46.3); Red Blood Cell Count 2.46 M/mm3 (3.80-5.20); White Blood Cell Count 3.08 K/mm3 (4.00-11.30)
[2021-07-11 06:06] LABS: Anion Gap 6 mmol/L (6-16); Blood Urea Nitrogen 8 mg/dL (8-24); Bun/Creatinine Ratio 10.5 (12.0-20.0); CO2, Blood 28 mmol/L (21-32); Calcium, Blood 8.9 mg/dL (8.5-10.1); Chloride, Blood 103 mmol/L (98-108); Creatinine, Blood 0.76 mg/dL (0.40-1.00); Glomerular Filtration Rate >60 (60-); Glucose, Blood 65 mg/dL (70-99); Potassium, Blood 3.9 mmol/L (3.5-5.5); Sodium, Blood 137 mmol/L (136-145)
--- NOTE | 2021-07-11 06:29 | NUR ---
SHIFT SUMMARY: PATIENT SLEPT WELL THIS SHIFT. CONTINUES TO REPORT PAIN IN LEFT UPPER ARM AND SHOULDER. NORCO WAS GIVEN WITH GOOD EFFECT. NS CONTINUES TO INFUSE AT 75 ML/HR, SODIUM THIS AM IS 137.
--- NOTE | 2021-07-11 16:26 | NUR ---
SHIFT SUMMARY PT REMAINS MOSTLY UNCHANGED AGAIN TODAY. VERY WEAK, LETHARGIC AND SLOW TO RESPOND. UP TO CHAIR FOR MEALS. PT UP TO SHOWER THIS AFTERNOON. DR RAZO IN TO SEE PT A COUPLE OF TIMES. MRI ORDERED. FORM FILLED OUT AND FAXED EARLY THIS AM. PT NOW DOWN TO IMAGING FOR TEST. PT ABLE TO STAND AND TX TO GURNEY WITH GB AND 1P ASSIST. PT IS VERY SLOW IN THINKING AND IN MOVEMENTS. NS DECREASED TO 50ml/HR THIS AM, PER DR RAZO. PT EATING SM AMTS AND DRINKING AT LEAST PART OF EACH ENSURE SENT WITH MEALS. PT HAS MAINTAINED 5OOcc FREE WATER RESTRICTION. NO C/O PAIN TO PRESENT TODAY. PT MEDICATED PRIOR TO START OF SHIFT. PLEASANT AND CO-OP WITH CARE. CALL LT IN REACH.
[2021-07-12 04:59] LABS: IMMATURE RETIC FRACTION 6.1 % (2.3-16.0); RETIC HGB EQUIVALENT 33.1 pg (28.20-36.60); RETICULOCYTE ABSOLUTE 0.05 M/mm3 (0.0200-0.1100)
--- NOTE | 2021-07-12 06:09 | NUR ---
SHIFT SUMMARY: PATIENT IS MORE ALERT AND STRONGER WITH AMBULATION AND MOBILITY. APPETITE IS POOR 0% OF DINNER AND REFUSED SNACK. UP WITH AX1 FWW AND GAIT BELT, GAIT IS UNSTEADY IT IS A HANDS ON ASSIST. IVF INFUSING PER MD ORDER.
--- NOTE | 2021-07-12 18:48 | NUR ---
SHIFT SUMMARY A/O X4, VSS, TOLERATING PO, AMBULATES c ASSISTANCE, DID WELL c PT/OT TODAY, AMBULATED IN THE HALLS TO THERAPY ROOM AND BACK, 1 PERIOD OF NAUSEA THIS MORNING AND ANOTHER AFTER LUNCH BUT NOTHING SINCE. NO ACUTE EVENTS THIS SHIFT, CALL LIGHT IN REACH, WILL CTM AND REPORT TO SARAH IBRAHIM.
--- NOTE | 2021-07-13 07:45 | NUR ---
SHIFT SUMMARY: PATIENT IS MORE ALERT THIS SHIFT. STILL REQUIRES HANDS ON ASSIST OF 1 WITH GAIT BELT AND WALKER FOR AMBULATION. NO REPORTS OF PAIN. SBP WAS IN THE 90'S @ HS. PATIENT IS ASYMPTOMATIC. NS INFUSING AT 50ML/HR PER MD ORDER.
[2021-07-13 13:09] LABS: ANA DIRECT Positive (Negative); ANTI-DNA (DS) AB QN 18 IU/mL (0-9); RNP ANTIBODIES <0.2 AI (0.0-0.9); SJOGREN'S ANTI-SS-A <0.2 AI (0.0-0.9); SJOGREN'S ANTI-SS-B <0.2 AI (0.0-0.9); SMITH ANTIBODIES <0.2 AI (0.0-0.9)
--- NOTE | 2021-07-13 18:23 | NUR ---
SHIFT SUMMARY PATIENT RESTING IN BED. A&OX4. PATIENT AMBULATES TO RESTROOM WITH ASSISTANCE MANAGING IV POLE. PATIENT WORKED WITH PT TODAY AND AMBULATED TO PT ROOM AND WORKING ON STAIRS. NO SIGNIFICANT EVENTS T/O SHIFT. BED IN LOW POSITION WITH CALL LIGHT IN REACH. WILL CONTINUE TO MONITOR.
--- NOTE | 2021-07-14 07:53 | NUR ---
SUMMARY: PT A/OX4, CALLS APPROPRIATELY TO SPECIFY NEEDS AND IS PLEASANT AND COOPERATIVE W/CARE. SHE'S SBA W/FWW TO TOILET AND STAFF UNABLE TO COLLECT STOOL SPECIMEN D/T NO BM. IV ABX RECIEVED AND NS INFUSES AT 50 ML/HR. PT REFUSED REMERON ON ACCOUNT OF BEING TOO DROWSY. NO ACUTE CHANGES, VSS AND AFEBRILE. WCTM AND REPORT TO DAY RN.
--- NOTE | 2021-07-14 12:53 | NUR ---
Discussed Home Health preference with patient. Patient's choice is [facility]. Patient states she has a stable and strong support system at home to include her , daughter, and [id number] to assist at home with ADLs when needed. Poly Krishnan from [facility] contacted.
--- NOTE | 2021-07-14 13:31 | NUR ---
Received referral from [facility] Biofuels Processing Technician (Marci Pack) on 07/14/2021. Patient is to discharge with orders for home health and elected [facility]. Met with patient to further discuss the above. Patient is agreeable to the above. Discussed homebound status definition with patient. Patient verbalized understanding. Discussed what home health is vs what it is not (in home caregivers/housekeeping). Patient verbalized understanding. Discussed the next steps in the process of an initial assessment to determine frequency of visits. Again patient verbalized understanding. Offered a chance for patient to ask questions regarding the above of which there were none. At this time patient has no discharge orders entered. Will continue to monitor and follow for discharge. Poly Krishnan Referral Liaison
[2021-07-14 13:51] LABS: Stool Occult Bld Immuno 1 Negative (NEGATIVE)
--- NOTE | 2021-07-14 20:00 | NUR ---
END OF SHIFT SUMMARY: PATIENT DENIED PAIN THROUGHOUT THE DAY. PATIENT REPORTED NAUSEA AND LACK OF APPETITE. PATIENT ALSO REPORTED DEPRESSION RELATED TO EXTENDED STAY. MEDICATED FOR NAUSEA PER PRNS. PATIENT REPORTS THIS HELPS. ENCOURAGED PATIENT TO PARTICIPATE IN CARE, TO GET UP OUT OF BED, AND TO REACH OUT TO FAMILY/FRIENDS TO HELP WITH MOOD. PATIENT RECEPTIVE AND DID HAVE AN IMPROVED MOOD THIS AFTERNOON AFTER WORKING WITH PT, OPENING BLINDS AND FACETIMING FAMILY. PATIENT STEADY ON FEET WITH FWW. PATIENT SITS AT BEDSIDE TO GAIN BEARINGS, BUT DENIES DIZZINESS. NO SOB NOTED AT REST OR WITH ACTIVITY. NO LOSS OF BALANCE NOTED WHEN WALKING WITH WALKER. PATIENT REPSONDED WELL TO ENCOURAGEMENT AND POINTED OUT HOW MUCH PROGRESS SHE HAS MADE. SHE IS HOPEFUL FOR A DISCHARGE SOON.
[2021-07-15 05:26] LABS: BASOPHILS ABSOLUTE AUTO 0.01 K/mm3 (0.00-0.23); BASOPHILS PERCENT AUTO 0 % (0-2); EOSINOPHILS ABSOLUTE AUTO 0.06 K/mm3 (0.00-0.68); EOSINOPHILS PERCENT AUTO 2 % (0-6); Hematocrit 24.8 % (33.0-51.0); IMMATURE GRAN ABSOLUTE AUTO 0.07 K/mm3 (0.00-0.10); IMMATURE GRAN PERCENT AUTO 2 % (0-1); LYMPHOCYTES ABSOLUTE AUTO 0.92 K/mm3 (0.84-5.20); LYMPHOCYTES PERCENT AUTO 25 % (21-46); MONOCYTES ABSOLUTE AUTO 0.52 K/mm3 (0.16-1.47); MONOCYTES PERCENT AUTO 14 % (4-13); Mean Corpuscular HGB Conc 32.3 g/dL (31.5-36.5); Mean Corpuscular Volume 90 fL (80-100); Mean Platelet Volume 9.2 fL (9.1-12.4); NEUTROPHILS ABSOLUTE AUTO 2.05 K/mm3 (1.96-9.15); NEUTROPHILS PERCENT AUTO 57 % (41-73); Platelet Count 287 K/mm3 (150-400); RDW Coefficient Variation 14.5 % (11.7-14.2); RDW Standard Deviation 46.2 fL (35.1-46.3); Red Blood Cell Count 2.76 M/mm3 (3.80-5.20); White Blood Cell Count 3.63 K/mm3 (4.00-11.30)
[2021-07-15 05:43] LABS: Anion Gap 7 mmol/L (6-16); Blood Urea Nitrogen 4 mg/dL (8-24); Bun/Creatinine Ratio 5.2 (12.0-20.0); CO2, Blood 25 mmol/L (21-32); Calcium, Blood 8.4 mg/dL (8.5-10.1); Chloride, Blood 103 mmol/L (98-108); Creatinine, Blood 0.76 mg/dL (0.40-1.00); Glomerular Filtration Rate >60 (60-); Glucose, Blood 80 mg/dL (70-99); Sodium, Blood 135 mmol/L (136-145)
--- NOTE | 2021-07-15 06:38 | NUR ---
PT IS A/OX4. NO ACUTE CHANGES TO REPORT THIS SHIFT.
--- NOTE | 2021-07-16 05:39 | NUR ---
PT IS A/OX4. THE ONLY NEW CHANGE TO REPORT IS THE PT HAS C/O OF A HEADACHE AROUND 0130. SHE STATED THAT THE NORCO GIVES HER MORE RELIEF AND WAS GIVEN THE PRN MEDICATION. THE HEADACHE HAS RESOLVED AND NO OTHER ACUTE CHANGES TO REPORT.
--- NOTE | 2021-07-16 12:57 | NUR ---
Received notification from [facility] Counter Pocket Trimmer (Marci Pack) that plan is now for patient to discharge to SNF due to requiring 2 weeks of IV antibiotics and having no one at home to administer/teach/train. Will notify [facility] dye machine operator (Maribell Tavera) of the above. No further interventions required. Poly Krishnan Referral Liaison
--- NOTE | 2021-07-17 06:00 | NUR ---
SHIFT SUMMARY: PT IS A/OX4. THE PT DID HAVE AN EPISODE OF N/V AND WAS GIVEN ZOFRAN WHICH RESOLVED THE N/V. SHE DID NOT HAVE ANY OTHER C/O DURING THE NOC SHIFT. SHE DID RECEIVE HER BACTRIM/MEROPENUM AND HAS NS @ 50 CONTINOUSLY. NO OTHER ACUTE CHANGES TO REPORT.
--- NOTE | 2021-07-17 17:51 | NUR ---
SHIFT SUMMARY PATIENT DENIES PAIN AND SHORTNESS OF BREATH. PATIENT MEDICATED X1 FOR NAUSEA. PATIENT IS A SBA TO THE BATHROOM DUE TO LINE MANAGEMENT. PATIENT WORKED WITH PT TODAY. PATIENT STILL HAS POOR PO INTAKE, BUT IMPROVING. PLAN IS TO DISCHARGE TO SNF ONCE A BED BECOMES AVAILABLE TO DUE TO IV ABX NEEDS. PATIENT IS PLEASANT AND COOPERATIVE WITH CARE.
--- NOTE | 2021-07-18 04:31 | NUR ---
Pt is alert and oriented x4 ambulatory. no signs of respiratory distress. pt complains of headache. medicated per PRN orders. pt is now resting on bed in lowest position call light within reach.
--- NOTE | 2021-07-18 17:29 | NUR ---
SHIFT SUMMARY PATIENT DENIES PAIN AND SHORTNESS OF BREATH. PATIENT MEDICATED X1 FOR NAUSEA. PATIENT IS A SBA TO THE BATHROOM DUE TO IV POLE MANAGEMENT. PATIENT SLEPT MOST OF SHIFT. PATIENT DID HAVE SOME SNACKS DROPPED OFF BY HER SON. THIS REALLY CHEERED HER UP. PATIENT HAS IMPROVED PO INTAKE. PATIENT IS PLEASANT AND COOPERATIVE WITH CARE.
--- NOTE | 2021-07-19 05:45 | NUR ---
SHIFT SUMMARY PATIENT AOX4 PLEASANT NO ACUTE CHANGE IN THIS SHIFT ASSISSTED TO BATHROOM STANDB ASSIST.C/O NAUSEA X1 PT REFUSED ZOFRAN ICE LEMONED OFFERED AND PTSTATED THAT IT HELPED ALOT.CONT WITH ABT/IV NO ADVANCE REACTION NOTED
--- NOTE | 2021-07-19 17:03 | NUR ---
SHIFT SUMMARY PATIENT DENIES PAIN AND SHORTNESS OF BREATH. PATIENT REPORTS NAUSEA, DECLINED MEDICATION. PATIENT IS INDEPENDENT IN ROOM WITH FWW. PATIENT WORKED WITH PT AND OT TODAY. PATIENT AMBULATED IN HALLWAY. PATIENT CONTINUES TO HAVE POOR PO INTAKE. EDUCATION DONE WITH PATIENTS [id number] FOR HOME IV ABX. PATIENT ANTICIPATED TO D/C THIS WEEK. PATIENT HAD AN MRI. PATIENT IS PLEASANT AND COOPERATIVE WITH CARE.
--- NOTE | 2021-07-20 06:09 | NUR ---
SHIFT SUMMARY NO ACUTE CHANGE IN THIS SHIFT NO NAUSEA OR VOMITING VOICED CONT BACTRIM IV ABT .DENISES ANY PAIN
--- NOTE | 2021-07-20 18:58 | NUR ---
SHIFT SUMMARY PT INDEPENDENT IN ROOM USING FWW. SLEEPING ON AND OFF BUT ALERT AND APPROPRIATE WITH CONVERSATION. TENTATIVE PLAN TO DISCHARGE MONDAY. NAUSEA ON AND OFF WITH REGLAN GIVEN TWICE. IS ABLE TO KEEP FOOD DOWN WHEN EATING.
--- NOTE | 2021-07-21 06:35 | NUR ---
SHIFT SUMMARY NO ACUTE CHANGE IN THIS SHIFT NO NAUSEA VOICED
--- NOTE | 2021-07-21 18:09 | NUR ---
SHIFT SUMMARY PT INDEPENDENT IN ROOM. REPORTED NAUSEA THIS MORNING AND REGLAN GIVEN. SHORTLY AFTERWARD IV FLUSHED FOR ANTIBIOTIC AND IMMEDIATELY HAD A JORDAN ON NAUSEA AND A SMALL EMESIS. FELT BETTER AFTERWARD. HAD ANOTHER EPISODE OF NAUSEA THAT GI COCKTAIL HELPED. STARTED TO WALK IN HALLWAY AND SAID SHE FELT GREAT BUT QUICKLY RETURNED WITH SMALL EMESIS. SETTLED AND RETURNED TO ROOM. PLANS TO DISCHARGE EARLY IN MORNING AND GIVE IV ANTIBIOTIC EARLY AND LEAVE BY [phone].
--- NOTE | 2021-07-22 06:49 | NUR ---
SHIFT SUMMARY AOX4 CONT ABT/IV PATIENT PLEASANT DISCHARGING HOME THIS MORNING .NO C/O NAUSEA ON THIS SHIFT .
[2021-07-22] MEDS ORDERED: MELA3 PO (07:39)
[2021-07-22] MEDS ORDERED: ELIQUIS5 M2 PO (07:39)
[2021-07-22] MEDS ORDERED: ALMACONE SUSPE355 ML PO (07:39)
[2021-07-22] MEDS ORDERED: METO10 PO (07:40)
[2021-07-22] MEDS ORDERED: MIRT30ST PO (07:40)
[2021-07-22] MEDS ORDERED: VISBIOME 112.51 EACH PO (07:41)
[2021-07-22] MEDS ORDERED: OMEP20ER PO (07:41)
[2021-07-22] MEDS ORDERED: Hair, Skin & N1 EACH PO (07:41)
[2021-07-22] MEDS ORDERED: B COMPLEX WITH1 EACH PO (07:42)
[2021-07-22] MEDS ORDERED: BACTRIM IV (07:47)
--- NOTE | 2021-07-22 08:30 | NUR ---
DISCHARGE INSTRUCTIONS COMPLETED AND DISCUSSED WITH PT EXPRESSING UNDERSTANDING. SCRIPTS FAXED TO [email or web address] TO BE HOME BY 10AM FOR IV INFUSION COMPANY APPT. POWERGLIDE DRESSING CHANGED YESTERDAY. GOING HOME WITH PG. HERE TO PICK PT UP. TO [facility] VIA W/C.
--- NOTE | 2021-07-22 08:33 | NUR ---
Patient has now discharged. Gathered all supporting documentation for referral (face sheet, face to face, med list, H&P, discharge summary, and most recent PT assessment) and sent to [facility] for review. No further interventions required. Poly Krishnan Referral Liaison
--- NOTE | 2021-07-22 15:13 | NUR ---
Per Dr. Sharita Vargas discharge appropriate. Patient does not oppose discharge. Patient discharged home with antibiotic infusion and [facility]. Date of discharge: 07/22/2021 Date of admission: 06/11/2021 Provisional diagnosis at time of admission: Bacterial meningitis Final Diagnosis at time of discharge: bacterial meningitis Location: Patient is discharged home to residence: [facility] Transportation provided by: [employer] Ordered: 2WW ordered through [employer] on 07/19/21 Follow-ups needed: EFM KAYDEN will contact patient to schedule hospital discharge follow-up. Informed patient EFM KAYDEN will contact patient to schedule an appointment. Confirmed numbers: Patient: [phone] Daughter Demetrice: [phone] Provider/PCP: Dr. Itz Redman When: WITHIN 1 WEEK Specialty: Infectious Disease When: Infectious Disease clinic/[place] on 07/26/21 Comment: [facility] did not show to initiate infusions. Spoke with Iris Demarco infusion coordinator and coordination unsuccessful with Ирина for today or tomorrow. Coordinated outpatient antibiotic infusion with [facility] for 4:00 pm today and 8:00 am tomorrow. Coordinated ED fast track antibiotic infusion with ED charge nurse for midnight infusion. Joann Maloney digital media manager coordinated home infusion for tomorrow mid-morning for supplies and teaching with bam Suresh. Demetrice received demonstration/teaching from bedside RN Aditi on 07/17/21. 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 [facility] will initiate services on 07/23/21.
== END 2021-07-22 08:15 | disposition home health service (06) | DRG 867 ==
LOC: ER 04:40 → PCU 10:01 → ICUE 10:01 → MEDS 10:01 → ICUE 10:45 → MEDS 06-21 14:29
PROVIDERS: Emergency Medicine; Family Medicine; Hospitalist; Internal Medicine; Internal Medicine Critical Care Medicine; Student in an Organized Health Care Education/Training Program; ADMIT Family Medicine
PROC: 009U3ZX Drainage of Spinal Canal, Percutaneous Approach, Diagnostic (ICD-10-PCS; principal; 2021-06-11)
DX: A43.8 Other forms of nocardiosis (principal); J96.00 Acute respiratory failure, unspecified whether with hypoxia or hypercapnia; G00.9 Bacterial meningitis, unspecified; G92.8 Other toxic encephalopathy; R65.20 Severe sepsis without septic shock; E87.2 Acidosis; E87.1 Hypo-osmolality and hyponatremia; E87.6 Hypokalemia; I77.89 Other specified disorders of arteries and arterioles; D64.9 Anemia, unspecified; F32.A Depression, unspecified; J43.9 Emphysema, unspecified; Z20.822 Contact with and (suspected) exposure to COVID-19; M81.0 Age-related osteoporosis without current pathological fracture; E55.9 Vitamin D deficiency, unspecified; G43.909 Migraine, unspecified, not intractable, without status migrainosus; Z86.16 Personal history of COVID-19; Z90.49 Acquired absence of other specified parts of digestive tract; Z90.89 Acquired absence of other organs; Z90.710 Acquired absence of both cervix and uterus; Z90.722 Acquired absence of ovaries, bilateral; Z87.891 Personal history of nicotine dependence; Z88.6 Allergy status to analgesic agent; Z79.899 Other long term (current) drug therapy
CPT/HCPCS: 0241U; 36415; 51702; 62270; 70450; 70553; 71045; 71270; 74176; 80048; 80053; 80069; 80202; 81001; 81003; 82010; 82274; 82533; 82607; 82728; 82746; 82803; 82945; 82947; 83540; 83550; 83605; 83735; 84100; 84157; 84484; 84550; 85025; 85045; 85651; 86140; 86160; 86225; 86235; 87040; 87070; 87077; 87086; 87186; 87205; 87389; 87483; 87493; 89051; 92610; 93005; 93010; 94760; 94762; 96365; 96366; 96367; 96368; 96375; 96376; 97110; 97116; 97116-CQ; 97162; 97166; 97530; 97530-CQ; 97535; 99285-25; A9270; A9579; C1751; G0480; J0133; J0278; J0290; J0696; J1100; J1644; J1650; J1885; J1940; J2020; J2060; J2185; J2248; J2405; J3010; J3370; J3475; J3480; J7030; J7050; J7060; Q9967

== ENCOUNTER 2021-07-22 23:45 | Emergency (ER) | payer BC ==
[~2021-07-22] VITALS: Ht 162.6 cm; Wt 65.8 kg
[~2021-07-22 23:45] MED LIST changes: +ALMACONE SUSPE355 ML PO; +B COMPLEX WITH1 EACH PO; +BACTRIM IV; +ELIQUIS5 M2 PO; +HYDROCODONE-AC1 EA15 PO; +MELA3 PO; +METO10 PO; +MIRT30ST PO; +VISBIOME 112.51 EACH PO
== END 2021-07-23 02:00 | disposition home or self-care (01) ==
LOC: ER 23:45
DX: Z51.81 Encounter for therapeutic drug level monitoring (principal); Z87.891 Personal history of nicotine dependence; Z88.5 Allergy status to narcotic agent; Z88.6 Allergy status to analgesic agent; Z79.899 Other long term (current) drug therapy; Z79.891 Long term (current) use of opiate analgesic
CPT/HCPCS: 96365; J7060

== ENCOUNTER 2021-07-23 00:27 | Day surgery (SDC) | payer BC | END 2021-07-23 09:40 | disposition home or self-care (01) | LOC: ATC 00:27 | DX: A43.8 Other forms of nocardiosis (principal); G00.9 Bacterial meningitis, unspecified | CPT/HCPCS: J7060 ==

== ENCOUNTER → 2021-07-26 | Outpatient (CLI) | payer BC ==
[2021-07-26 15:58] LABS: BASOPHILS ABSOLUTE AUTO 0.03 K/mm3 (0.00-0.23); BASOPHILS PERCENT AUTO 0 % (0-2); EOSINOPHILS ABSOLUTE AUTO 0.03 K/mm3 (0.00-0.68); EOSINOPHILS PERCENT AUTO 0 % (0-6); Hematocrit 29.9 % (33.0-51.0); Hemoglobin 9.5 g/dL (11.5-16.0); IMMATURE GRAN ABSOLUTE AUTO 0.18 K/mm3 (0.00-0.10); IMMATURE GRAN PERCENT AUTO 2 % (0-1); LYMPHOCYTES ABSOLUTE AUTO 2.97 K/mm3 (0.84-5.20); LYMPHOCYTES PERCENT AUTO 36 % (21-46); MONOCYTES ABSOLUTE AUTO 0.84 K/mm3 (0.16-1.47); MONOCYTES PERCENT AUTO 10 % (4-13); Mean Corpuscular HGB 28.7 pg (26.0-34.0); Mean Corpuscular HGB Conc 31.8 g/dL (31.5-36.5); Mean Corpuscular Volume 90 fL (80-100); Mean Platelet Volume 10.1 fL (9.1-12.4); NEUTROPHILS ABSOLUTE AUTO 4.24 K/mm3 (1.96-9.15); NEUTROPHILS PERCENT AUTO 51 % (41-73); Platelet Count 330 K/mm3 (150-400); RDW Coefficient Variation 16.6 % (11.7-14.2); RDW Standard Deviation 53.1 fL (35.1-46.3); Red Blood Cell Count 3.31 M/mm3 (3.80-5.20); White Blood Cell Count 8.29 K/mm3 (4.00-11.30)
[2021-07-26 16:12] LABS: Anion Gap 15 mmol/L (6-16); Blood Urea Nitrogen 4 mg/dL (8-24); Bun/Creatinine Ratio 4.1 (12.0-20.0); CO2, Blood 21 mmol/L (21-32); Calcium, Blood 9.4 mg/dL (8.5-10.1); Chloride, Blood 99 mmol/L (98-108); Creatinine, Blood 0.97 mg/dL (0.40-1.00); Glomerular Filtration Rate >60 (60-); Glucose, Blood 89 mg/dL (70-99); Potassium, Blood 4.1 mmol/L (3.5-5.5); Sodium, Blood 135 mmol/L (136-145)
== END ==
LOC: LAB HH 14:11
PROVIDERS: Family Medicine
DX: G00.9 Bacterial meningitis, unspecified (principal)
CPT/HCPCS: 80048; 85025

== ENCOUNTER 2022-01-20 09:55 | Inpatient (IN) | payer BC ==
[~2022-01-20] VITALS: Ht 162.6 cm; Wt 65.1 kg
[2022-01-20 10:58] LABS: BASOPHILS ABSOLUTE AUTO 0.03 K/mm3 (0.00-0.23); BASOPHILS PERCENT AUTO 0 % (0-2); EOSINOPHILS ABSOLUTE AUTO 0.01 K/mm3 (0.00-0.68); EOSINOPHILS PERCENT AUTO 0 % (0-6); Hematocrit 35.9 % (33.0-51.0); Hemoglobin 11.9 g/dL (11.5-16.0); IMMATURE GRAN ABSOLUTE AUTO 0.04 K/mm3 (0.00-0.10); IMMATURE GRAN PERCENT AUTO 1 % (0-1); LYMPHOCYTES ABSOLUTE AUTO 0.83 K/mm3 (0.84-5.20); LYMPHOCYTES PERCENT AUTO 10 % (21-46); MONOCYTES ABSOLUTE AUTO 0.27 K/mm3 (0.16-1.47); MONOCYTES PERCENT AUTO 3 % (4-13); Mean Corpuscular HGB Conc 33.1 g/dL (31.5-36.5); Mean Corpuscular Volume 85 fL (80-100); Mean Platelet Volume 10.4 fL (9.1-12.4); NEUTROPHILS PERCENT AUTO 85 % (41-73); Platelet Count 321 K/mm3 (150-400); RDW Coefficient Variation 12.4 % (11.7-14.2); RDW Standard Deviation 38.2 fL (35.1-46.3); Red Blood Cell Count 4.25 M/mm3 (3.80-5.20); White Blood Cell Count 7.98 K/mm3 (4.00-11.30)
[2022-01-20 11:23] LABS: Albumin, Blood 3.5 g/dL (3.4-5.0); Albumin/Globulin Ratio 0.8 (0.8-1.8); Bilirubin, Total 0.5 mg/dL (0.1-1.0); Bun/Creatinine Ratio 27.9 (12.0-20.0); Calcium, Blood 9.7 mg/dL (8.5-10.1); Creatinine, Blood 0.61 mg/dL (0.40-1.00); Globulin, Blood 4.6 g/dL (2.2-4.0); Potassium, Blood 4.1 mmol/L (3.5-5.5); Total Protein, Blood 8.1 g/dL (6.4-8.2)
[2022-01-20] MEDS ORDERED: [UNRECOGNIZED DRUG - CODE] PO (14:03)
[2022-01-20] MEDS ORDERED: ESTRADIOL1 MG PO (14:05)
[2022-01-20] MEDS ORDERED: IBU800 M1 PO (14:52)
[2022-01-20] MEDS ORDERED: FORTEO2.4 ML SC (14:52)
[2022-01-20 17:04] LABS: Source, Urine Clean Catch
[2022-01-20 17:25] LABS: Appearance, Urine Clear (Clear); Bilirubin, Urine Neg (Neg); Blood, Urine Neg (Neg); Color, Urine Yellow (P-Yellow); Glucose Qualitative, Urine Neg (Neg); Ketones, Urine 3+ (Neg); Leukocyte Esterase, Urine Neg (Neg); Nitrite, Urine Neg (Neg); Protein, Urine 1+ (Neg); Specific Gravity, Urine 1.025 (1.003-1.022); Urobilinogen, Urine NORM (Normal)
--- NOTE | 2022-01-20 18:33 | NUR ---
Patient admitted for pancreatitis. Recieved norco for pain in ED, c/o severe pain & nausea. Patient had 200mL brown liquid emesis. IV Reglan adminstred for nausea. Normal Saline infusing at 150mL/hr, IV in right AC. Vitals stable, afebrile, sats stable on RA. Clear liquid diet ordered.
[2022-01-21 05:22] LABS: BASOPHILS ABSOLUTE AUTO 0.03 K/mm3 (0.00-0.23); BASOPHILS PERCENT AUTO 0 % (0-2); EOSINOPHILS ABSOLUTE AUTO 0.03 K/mm3 (0.00-0.68); EOSINOPHILS PERCENT AUTO 0 % (0-6); Hematocrit 30.9 % (33.0-51.0); Hemoglobin 10.5 g/dL (11.5-16.0); IMMATURE GRAN ABSOLUTE AUTO 0.05 K/mm3 (0.00-0.10); IMMATURE GRAN PERCENT AUTO 0 % (0-1); LYMPHOCYTES ABSOLUTE AUTO 1.58 K/mm3 (0.84-5.20); LYMPHOCYTES PERCENT AUTO 12 % (21-46); MONOCYTES ABSOLUTE AUTO 0.86 K/mm3 (0.16-1.47); MONOCYTES PERCENT AUTO 7 % (4-13); Mean Corpuscular Volume 85 fL (80-100); Mean Platelet Volume 10.1 fL (9.1-12.4); NEUTROPHILS ABSOLUTE AUTO 10.64 K/mm3 (1.96-9.15); NEUTROPHILS PERCENT AUTO 81 % (41-73); Platelet Count 262 K/mm3 (150-400); RDW Coefficient Variation 12.4 % (11.7-14.2); RDW Standard Deviation 38.7 fL (35.1-46.3); Red Blood Cell Count 3.62 M/mm3 (3.80-5.20); White Blood Cell Count 13.19 K/mm3 (4.00-11.30)
[2022-01-21 05:48] LABS: Albumin, Blood 2.7 g/dL (3.4-5.0); Albumin/Globulin Ratio 0.8 (0.8-1.8); Bilirubin, Total 0.6 mg/dL (0.1-1.0); Bun/Creatinine Ratio 27.6 (12.0-20.0); Calcium, Blood 8.6 mg/dL (8.5-10.1); Creatinine, Blood 0.51 mg/dL (0.40-1.00); Globulin, Blood 3.5 g/dL (2.2-4.0); Magnesium, Blood 1.4 mg/dL (1.6-2.4); Phosphorus, Blood 3.1 mg/dL (2.5-4.9); Potassium, Blood 3.6 mmol/L (3.5-5.5); Total Protein, Blood 6.2 g/dL (6.4-8.2)
--- NOTE | 2022-01-21 07:36 | NUR ---
PT VERY NAUSEATED AND PAINFUL THROUGHOUT SHIFT. MEDICATED FOR BOTH PER MAR. IVF INFUSING. NO OTHER ISSUES NOTED.
--- NOTE | 2022-01-21 18:20 | NUR ---
DAYSHIFT SUMMARY Multiple episodes of emesis this AM, patient reported increased vomiting with oral intake & PO meds. AM meds held. Managed pain with IV Dilaudid & reglan/zofran, PRNs effective. Patient NPO, only allowed ice chips, no more episodes of emesis today. IV normal saline infusing. Vitals stable.
--- NOTE | 2022-01-22 06:08 | NUR ---
SHIFT SUMMARY PATIENT ALERT AND ORIENTED. MEDICATED PER EMAR FOR PAIN AND NAUSEA. NO COMPLAINTS OF SHORTNESS OF BREATH. NO ACUTE ISSUES NOTED OVERNIGHT. CALL LIGHT WITHIN REACH. REPORT GIVEN TO ONCOMING RN.
[2022-01-22 10:59] LABS: BASOPHILS ABSOLUTE AUTO 0.03 K/mm3 (0.00-0.23); BASOPHILS PERCENT AUTO 0 % (0-2); EOSINOPHILS ABSOLUTE AUTO 0.02 K/mm3 (0.00-0.68); EOSINOPHILS PERCENT AUTO 0 % (0-6); Hematocrit 31.8 % (33.0-51.0); Hemoglobin 10.6 g/dL (11.5-16.0); IMMATURE GRAN PERCENT AUTO 1 % (0-1); LYMPHOCYTES ABSOLUTE AUTO 1.81 K/mm3 (0.84-5.20); LYMPHOCYTES PERCENT AUTO 13 % (21-46); MONOCYTES ABSOLUTE AUTO 1.02 K/mm3 (0.16-1.47); MONOCYTES PERCENT AUTO 7 % (4-13); Mean Corpuscular HGB 28.8 pg (26.0-34.0); Mean Corpuscular HGB Conc 33.3 g/dL (31.5-36.5); Mean Corpuscular Volume 86 fL (80-100); Mean Platelet Volume 10.1 fL (9.1-12.4); NEUTROPHILS ABSOLUTE AUTO 10.73 K/mm3 (1.96-9.15); NEUTROPHILS PERCENT AUTO 78 % (41-73); Platelet Count 242 K/mm3 (150-400); RDW Coefficient Variation 12.4 % (11.7-14.2); RDW Standard Deviation 39.5 fL (35.1-46.3); Red Blood Cell Count 3.68 M/mm3 (3.80-5.20); White Blood Cell Count 13.71 K/mm3 (4.00-11.30)
[2022-01-22 11:16] LABS: Bun/Creatinine Ratio 19.1 (12.0-20.0); Calcium, Blood 8.2 mg/dL (8.5-10.1); Creatinine, Blood 0.47 mg/dL (0.40-1.00); Potassium, Blood 3.4 mmol/L (3.5-5.5)
--- NOTE | 2022-01-22 18:51 | NUR ---
SHIFT SUMMARY A&O X 4. VSS. MEDICATED THROUGHOUT SHIFT FOR C/O PAIN & NAUSEA PER MD ORDERS. NO VOMITING. NPO. ICE CHIPS & SIPS ONLY. IS INDEPENDENT IN THE ROOM FOR BATHROOM USE. POTASSIUM REPLACED PER MD ORDER WITH IVPB.
--- NOTE | 2022-01-23 06:08 | NUR ---
SHIFT SUMMARY PATIENT ALERT AND ORIENTED. MEDICATED PER EMAR FOR PAIN AND NAUSEA. PATIENT REPORTS HAVING A HEADACHE THAT IS INCREASING IN SEVERITY. NO OTHER ISSUES NOTED OVERNIGHT. CALL LIGHT WITHIN REACH. REPORT GIVEN TO ONCOMING RN.
[2022-01-23 10:39] LABS: BASOPHILS ABSOLUTE AUTO 0.05 K/mm3 (0.00-0.23); BASOPHILS PERCENT AUTO 0 % (0-2); EOSINOPHILS ABSOLUTE AUTO 0.26 K/mm3 (0.00-0.68); EOSINOPHILS PERCENT AUTO 2 % (0-6); Hematocrit 35.2 % (33.0-51.0); Hemoglobin 11.6 g/dL (11.5-16.0); IMMATURE GRAN ABSOLUTE AUTO 0.08 K/mm3 (0.00-0.10); IMMATURE GRAN PERCENT AUTO 1 % (0-1); LYMPHOCYTES ABSOLUTE AUTO 2.13 K/mm3 (0.84-5.20); LYMPHOCYTES PERCENT AUTO 14 % (21-46); MONOCYTES ABSOLUTE AUTO 1.13 K/mm3 (0.16-1.47); MONOCYTES PERCENT AUTO 8 % (4-13); Mean Corpuscular HGB 28.7 pg (26.0-34.0); Mean Corpuscular Volume 87 fL (80-100); Mean Platelet Volume 10.1 fL (9.1-12.4); NEUTROPHILS ABSOLUTE AUTO 11.41 K/mm3 (1.96-9.15); NEUTROPHILS PERCENT AUTO 76 % (41-73); Platelet Count 270 K/mm3 (150-400); RDW Coefficient Variation 12.6 % (11.7-14.2); Red Blood Cell Count 4.04 M/mm3 (3.80-5.20); White Blood Cell Count 15.06 K/mm3 (4.00-11.30)
[2022-01-23 10:54] LABS: Bun/Creatinine Ratio 17.9 (12.0-20.0); Calcium, Blood 8.6 mg/dL (8.5-10.1); Creatinine, Blood 0.45 mg/dL (0.40-1.00); Potassium, Blood 3.5 mmol/L (3.5-5.5)
--- NOTE | 2022-01-23 18:12 | NUR ---
SHIFT SUMMARY A&O X 4. VSS. IVF's INFUSING AT 150ML/HR. SHE REMAINS NPO ON ICE CHIPS. CONTINUES TO REQUEST PAIN MEDS THOUGH IS ABLE TO EXTEND TIME BETWEEN REQUESTS. MEDICATED FOR NAUSEA PER EMAR. SHE DOES STATE SHE'S HUNGRY AND WOULD LIKE TO TRY CLR LIQS. SHE REQUESTED CRANBERRY JUICE WHICH SHE TOLERATED. MD IN THIS AFTERNOON, ORDERS RECEIVED. IVF's DECREASED TO 75ML/HR PER MD ORDER. IS INDEPENDENT IN THE ROOM FOR RESTROOM USE. [facility] SHOWED A LIPASE LEVEL OF 316, AN IMPROVEMENT. PLAN IS HOME UPON DC WHEN READY.
[2022-01-24 05:35] LABS: BASOPHILS ABSOLUTE AUTO 0.03 K/mm3 (0.00-0.23); BASOPHILS PERCENT AUTO 0 % (0-2); EOSINOPHILS ABSOLUTE AUTO 0.52 K/mm3 (0.00-0.68); EOSINOPHILS PERCENT AUTO 5 % (0-6); Hematocrit 29.3 % (33.0-51.0); IMMATURE GRAN ABSOLUTE AUTO 0.03 K/mm3 (0.00-0.10); IMMATURE GRAN PERCENT AUTO 0 % (0-1); LYMPHOCYTES ABSOLUTE AUTO 1.52 K/mm3 (0.84-5.20); LYMPHOCYTES PERCENT AUTO 16 % (21-46); MONOCYTES PERCENT AUTO 10 % (4-13); Mean Corpuscular HGB 28.7 pg (26.0-34.0); Mean Corpuscular HGB Conc 34.1 g/dL (31.5-36.5); Mean Corpuscular Volume 84 fL (80-100); Mean Platelet Volume 10.1 fL (9.1-12.4); NEUTROPHILS ABSOLUTE AUTO 6.67 K/mm3 (1.96-9.15); NEUTROPHILS PERCENT AUTO 68 % (41-73); Platelet Count 227 K/mm3 (150-400); RDW Coefficient Variation 12.5 % (11.7-14.2); RDW Standard Deviation 37.6 fL (35.1-46.3); Red Blood Cell Count 3.48 M/mm3 (3.80-5.20); White Blood Cell Count 9.77 K/mm3 (4.00-11.30)
[2022-01-24 06:07] LABS: Bun/Creatinine Ratio 15.2 (12.0-20.0); Calcium, Blood 8.2 mg/dL (8.5-10.1); Creatinine, Blood 0.46 mg/dL (0.40-1.00)
--- NOTE | 2022-01-24 13:41 | NUR ---
PT PROVIDED WITH SANDWICH PER REQUEST. PER MD PATIENT IS TO TRY REGULAR DIET AND IF TOLERATED POSSIBLY DISCHARGE TODAY.
--- NOTE | 2022-01-24 14:54 | NUR ---
pt ate small amount of lunch. she denies any pain or nausea increase with eating.
[2022-01-24] MEDS ORDERED: HYDR1TAB94 PO (16:49)
[2022-01-24] MEDS ORDERED: ELIQUIS5 M2 PO (16:49)
[2022-01-24] MEDS ORDERED: ONDA4ODT MM (16:50)
[2022-01-24] MEDS ORDERED: MIRALAX17 GM PO (16:50)
--- NOTE | 2022-01-24 17:42 | NUR ---
DISCHARGE PT LEFT VIA WHEELCHAIR AT THIS TIME. NO NAUSEA OR PAIN FROM EATING TOLERATING PO WELL. WENT OVER ALL INSTRUCTIONS WITH PATIENT, DENIED FURTHER QUESTIONS AT THIS TIME. PRESCRIPTIONS FAXED TO PHARMACY. IV REMOVED, CATHETER TIP INTACT. PT AMBULATING WELL IN ROOM.
== END 2022-01-24 17:33 | disposition home or self-care (01) | DRG 438 ==
LOC: ER 09:55 → ERHOLD 14:57 → MEDS 17:46
PROVIDERS: Internal Medicine; Physician Assistant; ADMIT Family Medicine
DX: K85.90 Acute pancreatitis without necrosis or infection, unspecified (principal); G00.8 Other bacterial meningitis; K52.9 Noninfective gastroenteritis and colitis, unspecified; G44.40 Drug-induced headache, not elsewhere classified, not intractable; F41.9 Anxiety disorder, unspecified; F32.A Depression, unspecified; M81.8 Other osteoporosis without current pathological fracture; E86.0 Dehydration; T38.0X5A Adverse effect of glucocorticoids and synthetic analogues, initial encounter; E28.319 Asymptomatic premature menopause; T39.395A Adverse effect of other nonsteroidal anti-inflammatory drugs [NSAID], initial encounter; B96.89 Other specified bacterial agents as the cause of diseases classified elsewhere; Z88.8 Allergy status to other drugs, medicaments and biological substances; Z86.79 Personal history of other diseases of the circulatory system; Z86.711 Personal history of pulmonary embolism; Z79.891 Long term (current) use of opiate analgesic; Z79.01 Long term (current) use of anticoagulants; Z86.16 Personal history of COVID-19; Z90.710 Acquired absence of both cervix and uterus; Z87.891 Personal history of nicotine dependence; Z88.5 Allergy status to narcotic agent; Z79.899 Other long term (current) drug therapy
CPT/HCPCS: 36415; 74018; 76705; 80048; 80053; 83690; 83735; 84100; 85025; 96374; 96375; 96376; 99285-25; A9270; J1170; J1885; J2405; J2765; J3480; J7030; J7050

== ENCOUNTER → 2022-02-23 | Outpatient (CLI) | payer BC ==
[~2022-02-23] MED LIST changes: +ESTRADIOL1 MG PO; +FORTEO2.4 ML SC; +IBU800 M1 PO; +MIRALAX17 GM PO; +ONDA4ODT MM; +[UNRECOGNIZED DRUG - CODE] PO
[2022-02-23 11:23] LABS: Albumin, Blood 3.1 g/dL (3.4-5.0); Albumin/Globulin Ratio 0.7 (0.8-1.8); Bilirubin, Total 0.4 mg/dL (0.1-1.0); Calcium, Blood 10.1 mg/dL (8.5-10.1); Creatinine, Blood 0.55 mg/dL (0.40-1.00); Globulin, Blood 4.6 g/dL (2.2-4.0); Potassium, Blood 3.6 mmol/L (3.5-5.5); Total Protein, Blood 7.7 g/dL (6.4-8.2)
== END | disposition home or self-care (01) ==
LOC: LAB SHORT 10:09 → LAB 10:09
PROVIDERS: Family Medicine
DX: G03.8 Meningitis due to other specified causes (principal); A43.8 Other forms of nocardiosis; D46.9 Myelodysplastic syndrome, unspecified; E87.6 Hypokalemia
CPT/HCPCS: 80053; 86140

== ENCOUNTER 2022-09-29 10:09 | Emergency (ER) | payer BC ==
[~2022-09-29] VITALS: Ht 162.6 cm; Wt 54.4 kg
[2022-09-29] MEDS ORDERED: IRON18 MG PO (10:34)
[2022-09-29 10:48] LABS: BASOPHILS ABSOLUTE AUTO 0.03 K/mm3 (0.00-0.23); BASOPHILS PERCENT AUTO 0 % (0-2); EOSINOPHILS ABSOLUTE AUTO 0.14 K/mm3 (0.00-0.68); EOSINOPHILS PERCENT AUTO 1 % (0-6); Hematocrit 31.4 % (33.0-51.0); Hemoglobin 9.9 g/dL (11.5-16.0); IMMATURE GRAN ABSOLUTE AUTO 0.04 K/mm3 (0.00-0.10); IMMATURE GRAN PERCENT AUTO 0 % (0-1); LYMPHOCYTES ABSOLUTE AUTO 1.68 K/mm3 (0.84-5.20); LYMPHOCYTES PERCENT AUTO 17 % (21-46); MONOCYTES PERCENT AUTO 7 % (4-13); Mean Corpuscular HGB 28.7 pg (26.0-34.0); Mean Corpuscular HGB Conc 31.5 g/dL (31.5-36.5); Mean Corpuscular Volume 91 fL (80-100); Mean Platelet Volume 9.1 fL (9.1-12.4); NEUTROPHILS ABSOLUTE AUTO 7.61 K/mm3 (1.96-9.15); NEUTROPHILS PERCENT AUTO 75 % (41-73); Platelet Count 471 K/mm3 (150-400); RDW Coefficient Variation 14.6 % (11.7-14.2); RDW Standard Deviation 49.4 fL (35.1-46.3); Red Blood Cell Count 3.45 M/mm3 (3.80-5.20)
[2022-09-29 11:06] LABS: Albumin, Blood 2.1 g/dL (3.4-5.0); Albumin/Globulin Ratio 0.4 (0.8-1.8); Bilirubin, Total 0.2 mg/dL (0.1-1.0); Creatinine, Blood 0.64 mg/dL (0.40-1.00); Globulin, Blood 4.9 g/dL (2.2-4.0); Potassium, Blood 4.2 mmol/L (3.5-5.5)
== END 2022-09-29 14:36 | disposition home or self-care (01) ==
LOC: ER 10:09
PROVIDERS: Student in an Organized Health Care Education/Training Program
DX: K86.3 Pseudocyst of pancreas (principal); F17.290 Nicotine dependence, other tobacco product, uncomplicated
CPT/HCPCS: 36415; 74177; 80053; 83690; 85025; A9270; J1170; Q9967

== ENCOUNTER → 2023-03-22 | Outpatient (CLI) | payer BC ==
[~2023-03-22] MED LIST changes: +IRON18 MG PO
[2023-03-23 15:32] LABS: Stool Occult Bld Immuno 1 Negative (NEGATIVE)
== END ==
LOC: LAB 06:25 → LAB SHORT 06:25
PROVIDERS: Family Medicine
DX: Z12.11 Encounter for screening for malignant neoplasm of colon (principal)
CPT/HCPCS: G0328

== ENCOUNTER 2023-04-18 08:38 | Day surgery (SDC) | payer BC ==
[2023-04-18] VITALS (18 sets, daily range): BP systolic 74–111; BP diastolic 54–75
[~2023-04-18] VITALS: Ht 162.6 cm; Wt 52.8 kg
[~2023-04-18 08:38] MED LIST changes: +Cyclobenzaprine5 MG PO; +ESTRADIOL PO; +HYDHCL25 PO; +HYDSUL200 PO; +Norco 10-325 T1 EACH PO; +Pepcid20 MG PO; +SENNA LAXATIVE8.6 MG PO; +VITAMIN D310 MC4 PO
--- NOTE | 2023-04-18 10:30 | NUR ---
History, Chart, Medications and Allergies reviewed before start of procedure. Pre-Op teaching done. Pt verbalizes understanding. Patient confirms NPO status and agrees with scheduled surgery. Patient reports completing Chlorhexadine shower X2 prior to admission to hospital. Surgical site prepped with 2% Chlorhexidine cloth wipe. Lungs clear T/O to Auscultation. Patient States Post-Procedure ride home has been arranged.
--- NOTE | 2023-04-18 19:09 | NUR ---
SHIFT SUMMARY POD0 L JOSIE, A/OX4, VSS, TOLERATIN PO, PAIN WAS AN ISSUE FOR HER WHEN SHE FIRST ARRIVED TO THE FLOOR, PER REPORT SHE WAS NOT REPORTING ANY PAIN WHILE SHE WAS IN PACU BUT THEN BECAME A 10/10 PAIN WITHIN 30 MINUTES OF ARRIVAL TO HER ROOM, MEDICATED PER EMAR, PT WAS STILL REPORTING HIGH LEVELS OF PAIN, CONTACTED ATTENDING AND OBTAINED ADDITIONAL ONE TIME ORDER FOR PAIN MEDS WHICH WERE ADMINISTERED AFTERWHICH SHE REPORTED SIGNIFICANT INCREASE IN PAIN MANAGEMENT. DISCUSSED PAIN MANAGEMENT PLAN FOR OVER NIGHT AND WILL RECOMMEND TO NOC RN TO CHECK HER PAIN EACH TIME HER PO PAIN MEDICATION IS AVAILABLE. NO OTHER EVENTS THIS SHIFT, CALL LIGHT IN REACH.
--- NOTE | 2023-04-18 19:58 | NUR ---
BP: PRIMARY RN REPORTED CONCERNS OF PT HYPO BY. VITALS REVIEWED, DR QURESHI UPDATED. NEW ORDER FOR HOSPITALIST CONSULT REC. DR NOLAN CONSULTED, REVIEWED PT VITALS SND P/O STATUS, NEW ORDER FOR 500 ML BOLUS OVER 2 HRS REC. PRIMARY RN UPDATED.
[2023-04-18 21:02] LABS: BASOPHILS ABSOLUTE AUTO 0.02 K/mm3 (0.00-0.23); BASOPHILS PERCENT AUTO 0 % (0-2); EOSINOPHILS ABSOLUTE AUTO 0.03 K/mm3 (0.00-0.68); EOSINOPHILS PERCENT AUTO 0 % (0-6); Hematocrit 25.3 % (33.0-51.0); Hemoglobin 8.4 g/dL (11.5-16.0); IMMATURE GRAN ABSOLUTE AUTO 0.04 K/mm3 (0.00-0.10); IMMATURE GRAN PERCENT AUTO 1 % (0-1); LYMPHOCYTES ABSOLUTE AUTO 0.89 K/mm3 (0.84-5.20); LYMPHOCYTES PERCENT AUTO 12 % (21-46); MONOCYTES ABSOLUTE AUTO 0.47 K/mm3 (0.16-1.47); MONOCYTES PERCENT AUTO 6 % (4-13); Mean Corpuscular HGB Conc 33.2 g/dL (31.5-36.5); Mean Corpuscular Volume 93 fL (80-100); Mean Platelet Volume 9.9 fL (9.1-12.4); NEUTROPHILS ABSOLUTE AUTO 6.19 K/mm3 (1.96-9.15); NEUTROPHILS PERCENT AUTO 81 % (41-73); Platelet Count 149 K/mm3 (150-400); RDW Coefficient Variation 13.2 % (11.7-14.2); RDW Standard Deviation 45.2 fL (35.1-46.3); Red Blood Cell Count 2.71 M/mm3 (3.80-5.20); White Blood Cell Count 7.64 K/mm3 (4.00-11.30)
[2023-04-18 21:29] LABS: Albumin, Blood 2.8 g/dL (3.4-5.0); Albumin/Globulin Ratio 0.9 (0.8-1.8); Bilirubin, Total 0.4 mg/dL (0.1-1.0); Bun/Creatinine Ratio 27.6 (12.0-20.0); Calcium, Blood 8.5 mg/dL (8.5-10.1); Creatinine, Blood 0.65 mg/dL (0.40-1.00); Globulin, Blood 3.2 g/dL (2.2-4.0); Magnesium, Blood 1.9 mg/dL (1.6-2.4); Thyroid Stimulating Hormone 1.15 uIU/mL (0.360-4.800)
--- NOTE | 2023-04-18 21:43 | NUR ---
BLOOD PRESSURE PT HYPOTENSIVE, PT BLOOD PRESSURES IN THE LOW 80'S TO MID 70'S SBP AFTER REPEAT CHECKS. PT ASYMPTOMATIC, NO S/S OF BLEEDING. HR STABLE. TRUCK DRIVER SUPERVISOR JAI AWARE. DR. QURESHI NOTIFIED AND HOSPITALIST SERVICE CONSULTED. DR. NOLAN ORDERED LR BOLUS, TO RUN OVER TWO HOURS. PT BP REPEATED AFTER INITATION OF BOLUS WITH DR. NOLAN AT BEDSIDE. BP HAS POSITIVELY RESPONDED, SBP IN THE 90'S, MAP WNL. DR. NOLAN AWARE OF CURRENT BP.
--- NOTE | 2023-04-18 21:56 | NUR ---
PAIN MEDICATION OK TO GIVE OXYCODONE 5 MG WITH CURRENT BLOOD PRESSURE OF 90/66. NO ADDITIONAL ORDERS FOR PT BLOOD PRESSURE AT THIS TIME.
--- NOTE | 2023-04-18 23:27 | NUR ---
PAIN/TORADOL PT STILL COMPLAINING OF PAIN AFTER ONE 5MG OXYCODONE, PER DR. CARTER ORDERS. PT STATES THAT IT DID NOTHING FOR HER PAIN. DR. NOLAN CALLED AND NOTIFIED. HE STATES THAT HE WANTS TO STICK TO ONLY 5MG OF OXYCODONE AND TO HOLD OFF ON THE DILAUDID D/T HYPOTENSION. HE ORDERED IV TORADOL. HE STATES OK TO GIVE IV TORADOL WITH ASPIRIN ALLERY LONG THERE IS NO ANAPHYLAXIS HX WITH ASPIRIN. PT REPORTS NO HISTORY OF ANAPHYLAXIS WITH ASPIRIN, AND STATES SHE WOULD BE OK WITH TORADOL. SPOKE WITH PHARMACIST JOSE JUAN. BUHR MILL OPERATOR AWARE. ORDER PLACED.
[2023-04-19 02:31] VITALS: BP 99/55
[2023-04-19 02:34] LABS: BASOPHILS ABSOLUTE AUTO 0.01 K/mm3 (0.00-0.23); BASOPHILS PERCENT AUTO 0 % (0-2); EOSINOPHILS PERCENT AUTO 2 % (0-6); Hematocrit 25.7 % (33.0-51.0); Hemoglobin 8.5 g/dL (11.5-16.0); IMMATURE GRAN ABSOLUTE AUTO 0.02 K/mm3 (0.00-0.10); IMMATURE GRAN PERCENT AUTO 0 % (0-1); LYMPHOCYTES ABSOLUTE AUTO 1.08 K/mm3 (0.84-5.20); LYMPHOCYTES PERCENT AUTO 18 % (21-46); MONOCYTES PERCENT AUTO 7 % (4-13); Mean Corpuscular HGB 30.9 pg (26.0-34.0); Mean Corpuscular HGB Conc 33.1 g/dL (31.5-36.5); Mean Corpuscular Volume 94 fL (80-100); Mean Platelet Volume 10.2 fL (9.1-12.4); NEUTROPHILS ABSOLUTE AUTO 4.31 K/mm3 (1.96-9.15); NEUTROPHILS PERCENT AUTO 73 % (41-73); Platelet Count 145 K/mm3 (150-400); RDW Coefficient Variation 13.2 % (11.7-14.2); RDW Standard Deviation 44.7 fL (35.1-46.3); Red Blood Cell Count 2.75 M/mm3 (3.80-5.20); White Blood Cell Count 5.92 K/mm3 (4.00-11.30)
[2023-04-19 03:00] LABS: Bun/Creatinine Ratio 25.8 (12.0-20.0); Calcium, Blood 8.6 mg/dL (8.5-10.1); Creatinine, Blood 0.62 mg/dL (0.40-1.00); Potassium, Blood 4.1 mmol/L (3.5-5.5)
--- NOTE | 2023-04-19 04:16 | NUR ---
SHIFT SUMMARY POD 0 LEFT TOTAL HIP. PT HAS HAD HYPOTENSION THIS SHIFT, PLEASE SEE PREVIOUS NURSES NOTES. PT HAS BEEN ASYMPTOMATIC. PT RECEIVED 500 CC BOLUS THIS SHIFT. CONSERVATIVE PAIN MANAGEMENT D/T LOW BLOOD PRESSURES PER DR. NOLAN. PAIN MANAGEMENT HAS ALSO BEEN COMPLICATED BY CHRONIC PAIN. PT STATES OXYCODONE IS NOT ENOUGH FOR PAIN. TORADOL ORDERED AND PT REPORTS RELIEF. PT HAS NOT BEEN UP AND AMBULATING YET D/T LOW BLOOD PRESSURES. PT HAS VOIDED AND IS TOLERATING PO INTAKE. DRESSING IS C/D/I TO LEFT HIP. HGB STABLE, HR STABLE.
[2023-04-19 05:05] VITALS: BP 87/58
[2023-04-19 05:23] VITALS: BP 87/59
[2023-04-19 07:26] VITALS: BP 94/64
[2023-04-19 10:41] VITALS: BP 98/62
[2023-04-19] MEDS ORDERED: ELIQUIS2.5 MG PO (11:54)
[2023-04-19] MEDS ORDERED: HYDR1TAB94 PO (11:56)
--- NOTE | 2023-04-19 13:22 | NUR ---
DISCHARGE SUMMARY PT A&OX4, VSS/RA, [place] PO, VOIDING, AMB SBA FWW/GB, UP TO CHAIR T/O SHIFT, PAIN MANAGED WELL COULD BE EXPECTED WITH PT CHRONIC PAIN ISSUES, IV DC'D, DC INS PROVIDED, PT REP UNDERSTANDING THOSE INSTRUCTIONS INCLUDING AQUACEL DRESSING CHANGES, FU WITH SURGEON, KEVIN/TEDS, POLAR MONSE, SHORT FREQUENT WALKS WITH ICE/ELEVATION AT REST, PAIN MANAGEMENT. LEFT FLOOR VIA WC WITH ARMY OFFICER TO GO HOME WITH DAUGHTER WITH ALL PERSONAL POSSESSIONS INCLUDING DC PACKET, AQUACEL DRESSINGS, POLAR MONSE, 1 NARC SCRIPT AND 1 ELIQUIS SCRIPT.
== END 2023-04-19 12:16 | disposition home or self-care (01) ==
LOC: SURS 08:38 → ORSCMMR 08:38 → ORD 09:15 → ORSCMMR 10:00 → SURS 14:57 → ORSCMMR 04-19 12:16
PROVIDERS: Orthopaedic Surgery; Student in an Organized Health Care Education/Training Program
PROC: 0SRB0J9 Replacement of Left Hip Joint with Synthetic Substitute, Cemented, Open Approach (ICD-10-PCS; principal; 2023-04-18 10:00)
DX: M87.050 Idiopathic aseptic necrosis of pelvis (principal); M16.12 Unilateral primary osteoarthritis, left hip; Z96.653 Presence of artificial knee joint, bilateral; Z87.891 Personal history of nicotine dependence; J43.9 Emphysema, unspecified; Z79.899 Other long term (current) drug therapy
CPT/HCPCS: 36415; 72170; 80048; 80053; 83735; 84443; 85025; 88304; 88311; 97110; 97112; 97116; 97161; 97530; A9270; C1713; C1776; J0171; J0690; J0735; J1170; J1885; J2250; J2371; J2704; J2795; J3010; J7120

== ENCOUNTER 2023-05-16 08:09 | Day surgery (SDC) | payer BC ==
[~2023-05-16] VITALS: Ht 162.6 cm; Wt 55.2 kg
[2023-05-16] VITALS (33 sets, daily range): BP systolic 72–111; BP diastolic 47–95
[~2023-05-16 08:09] MED LIST changes: +ELIQUIS2.5 MG PO; +[UNRECOGNIZED DRUG - OTHER] PO
[2023-05-16 09:43] LABS: BASOPHILS ABSOLUTE AUTO 0.01 K/mm3 (0.00-0.23); BASOPHILS PERCENT AUTO 0 % (0-2); EOSINOPHILS ABSOLUTE AUTO 0.45 K/mm3 (0.00-0.68); EOSINOPHILS PERCENT AUTO 9 % (0-6); Hematocrit 32.4 % (33.0-51.0); Hemoglobin 10.6 g/dL (11.5-16.0); IMMATURE GRAN PERCENT AUTO 0 % (0-1); LYMPHOCYTES ABSOLUTE AUTO 1.42 K/mm3 (0.84-5.20); LYMPHOCYTES PERCENT AUTO 29 % (21-46); MONOCYTES ABSOLUTE AUTO 0.48 K/mm3 (0.16-1.47); MONOCYTES PERCENT AUTO 10 % (4-13); Mean Corpuscular HGB 31.2 pg (26.0-34.0); Mean Corpuscular HGB Conc 32.7 g/dL (31.5-36.5); Mean Corpuscular Volume 95 fL (80-100); Mean Platelet Volume 10.2 fL (9.1-12.4); NEUTROPHILS ABSOLUTE AUTO 2.59 K/mm3 (1.96-9.15); NEUTROPHILS PERCENT AUTO 52 % (41-73); Platelet Count 167 K/mm3 (150-400); RDW Coefficient Variation 13.7 % (11.7-14.2); RDW Standard Deviation 48.4 fL (35.1-46.3); White Blood Cell Count 4.95 K/mm3 (4.00-11.30)
--- NOTE | 2023-05-16 09:43 | NUR ---
Arrived in Day Surgery by WC. Patient confirms NPO status and agrees with scheduled surgery. Surgical site prepped with 2% Chlorhexidine cloth wipe. Patient reports completing Chlorhexadine shower X2 prior to admission to hospital. History, Chart, Medications and Allergies reviewed before start of procedure.
--- NOTE | 2023-05-16 19:22 | NUR ---
SHIFT SUMMARY PT POD 0 R JOSIE. AQUACEL DRESSING TO R HIP C/D/I. PAIN WELL MANAGED WITH PO NORCO PER EMAR AND SCHEDULED TORADOL. PT DID NOT WORKF WITH THERAPY TODAY BUT WAS UP TO CHAIR USING FWW. VOIDED W/O DIFFICULTY. PLAN TO DC HOME TOMORROW
--- NOTE | 2023-05-16 23:10 | NUR ---
BP MANAGEMENT DR. QURESHI CONTACTED ABOUT THE PTS PERSISTANT HYPOTENTION. RECIEVED ORDER FOR 1L IV BOLUS OF NS, AND INSTRUCTED TO CONSULT HOSPITALIST IF THE PTS BP REMAINS LOW. PT REMAINS ASYMPTOMATIC AT THIS TIME.
[2023-05-17 00:52] VITALS: BP 112/68
[2023-05-17 01:15] VITALS: BP 88/59
[2023-05-17 03:18] VITALS: BP 90/53
[2023-05-17 04:26] VITALS: BP 85/53
--- NOTE | 2023-05-17 04:44 | NUR ---
SHIFT SUMMARY POD1 R JOSIE. DRESSING IS C/D/I, SENSATION AND CIRCULATION REMAINS INTACT. PERSISTANT HYPOTENTION NOTED, PT HAS REMAINED ASYMPTOMATIC T/O THE NIGHT. TOLLERATED AMBULATING TO THE BATHROOM TO VOID, NO COMPLICATIONS NOTED. DR. QURESHI AWARE. 1L BOLUS GIVEN AND MAITENENCE FLUIDS HAVE RUN T/O THE NIGHT. PAIN HAS BEEN DIFFICULT TO MANAGE D/T ABNORMAL VS. MEDICATING W/ HOME DOSE OF NORCO, TYLENOL, AND TORADOL. POWERGLIDE PLACED IN RUE. PLAN FOR PT TO WORK WITH PHYSICAL THERAPY TODAY AND POTENTIALLY D/C HOME.
[2023-05-17 05:32] LABS: BASOPHILS ABSOLUTE AUTO 0.01 K/mm3 (0.00-0.23); BASOPHILS PERCENT AUTO 0 % (0-2); EOSINOPHILS ABSOLUTE AUTO 0.48 K/mm3 (0.00-0.68); EOSINOPHILS PERCENT AUTO 10 % (0-6); Hematocrit 23.7 % (33.0-51.0); Hemoglobin 7.4 g/dL (11.5-16.0); IMMATURE GRAN ABSOLUTE AUTO 0.02 K/mm3 (0.00-0.10); IMMATURE GRAN PERCENT AUTO 0 % (0-1); LYMPHOCYTES ABSOLUTE AUTO 0.97 K/mm3 (0.84-5.20); LYMPHOCYTES PERCENT AUTO 20 % (21-46); MONOCYTES ABSOLUTE AUTO 0.42 K/mm3 (0.16-1.47); MONOCYTES PERCENT AUTO 9 % (4-13); Mean Corpuscular HGB 30.3 pg (26.0-34.0); Mean Corpuscular HGB Conc 31.2 g/dL (31.5-36.5); Mean Corpuscular Volume 97 fL (80-100); Mean Platelet Volume 10.6 fL (9.1-12.4); NEUTROPHILS ABSOLUTE AUTO 3.03 K/mm3 (1.96-9.15); NEUTROPHILS PERCENT AUTO 62 % (41-73); Platelet Count 123 K/mm3 (150-400); RDW Coefficient Variation 13.6 % (11.7-14.2); Red Blood Cell Count 2.44 M/mm3 (3.80-5.20); White Blood Cell Count 4.93 K/mm3 (4.00-11.30)
[2023-05-17 05:58] VITALS: BP 84/59
[2023-05-17 06:20] LABS: Bun/Creatinine Ratio 19.5 (12.0-20.0); Calcium, Blood 8.1 mg/dL (8.5-10.1); Creatinine, Blood 0.57 mg/dL (0.40-1.00); Potassium, Blood 3.9 mmol/L (3.5-5.5)
[2023-05-17] MEDS ORDERED: Percocet 5-3251 EACH PO (07:24)
[2023-05-17 07:47] VITALS: BP 99/52
[2023-05-17] MEDS ORDERED: Norco 10-325 T1 EACH PO (08:38)
--- NOTE | 2023-05-17 10:21 | NUR ---
DISCHARGE NOTE: PATIENT WAS EDUCATED ON DISCHARGE INSTRUCTIONS. SHE VERBALIZED UNDERSTANDING OF EDUCATION AND HAD NO FURTHER QUESTIONS AT THIS TIME. POWERGLIDE IV WAS TAKEN OUT AND WNL. PATIENTS PAIN IS MANAGED WITH PO PAIN MEDS. HER HARD PERSCRIPTION WAS PLACED WITH DISCHARGE FOLDER. HER RIGHT HIP HAS AN AQUACEL THAT IS C/D/I. PATIENT DENIES NUMBNESS OR TINGLING IN ALL EXTREMITIES. SHE IS A SBA WITH FWW AND GAIT BELT. PATIENT IS TOLERATING PO INTAKE AND IS VOIDING. SHE IS DRESSED AND HAS PERSONAL ITEMS IN THE ROOM GATHERED. PATIENT IS AWAITING FOR HER RIDE TO COME AND PICK HER UP.
--- NOTE | 2023-05-17 10:38 | NUR ---
PATIENTS RIDE IS HERE. SHE HAS HER PERSONAL ITEMS IN THE ROOM GATHERED AND IS BEING WHEELCHAIRED DOWN TO HER RIDE TO BE TAKEN HOME.
== END 2023-05-17 10:43 | disposition home or self-care (01) ==
LOC: ORSCMMR 08:09 → ORD 09:15 → ORSCMMR 09:15 → SURS 14:00 → ORSCMMR 05-17 10:43
PROVIDERS: Anesthesiology; Orthopaedic Surgery
PROC: 0SR90J9 Replacement of Right Hip Joint with Synthetic Substitute, Cemented, Open Approach (ICD-10-PCS; principal; 2023-05-16 09:15)
DX: M16.11 Unilateral primary osteoarthritis, right hip (principal); M87.9 Osteonecrosis, unspecified; J44.9 Chronic obstructive pulmonary disease, unspecified; F17.210 Nicotine dependence, cigarettes, uncomplicated; K21.9 Gastro-esophageal reflux disease without esophagitis; Z79.01 Long term (current) use of anticoagulants; Z79.899 Other long term (current) drug therapy
CPT/HCPCS: 27130; 0055T; 72170; 80048; 85025; 97116; 97162; A9270; C1713; C1751; C1776; J0171; J0690; J0735; J1170; J1885; J2250; J2704; J2795; J3010; J7030; J7120